=== PATIENT | female | born 1940 | race Caucasian/White ===

== ENCOUNTER 2017-12-14 09:55 | Observation (INO) | payer OTHER ==
[2017-12-12 11:23] LABS: BASOPHILS # (AUTO) 0.1 (0.0-0.1); BASOPHILS % 0.6 % (0.0-1.0); EOSINOPHILS # (AUTO) 0.4 (0.0-0.4); EOSINOPHILS % 4.5 % (0.0-6.0); HEMATOCRIT 39.6 % (34.2-44.1); HEMOGLOBIN 13.1 g/dL (12.0-16.0); LYMPHOCYTES # (AUTO) 2.3 (1.0-3.2); LYMPHOCYTES % 24.4 % (18.0-39.1); MEAN CORPUSCULAR HEMOGLOBIN 32.8 pg (28-32); MEAN CORPUSCULAR HGB CONC 33.1 g/dL (31-35); MONOCYTES % 10.6 % (4.4-11.3); NEUTROPHILS # (AUTO) 5.6 (2.1-6.9); NEUTROPHILS % 59.7 % (38.7-80.0); PLATELET COUNT 228 x10e3/uL (140-360); RED CELL DISTRIBUTION WIDTH 11.8 % (11.7-14.4)
[2017-12-12 11:40] LABS: ANION GAP 13.3 mmol/L (8-16); BLOOD UREA NITROGEN 13 mg/dL (7-26); BUN/CREATININE RATIO 17 (6-25); CALCIUM 9.9 mg/dL (8.4-10.2); CARBON DIOXIDE 32 mmol/L (22-29); CHLORIDE 99 mmol/L (98-107); CREATININE, SERUM 0.76 mg/dL (0.57-1.11); EST GLOMERULAR FILTRATION RATE > 60 ML/MIN (60-); GLUCOSE 81 mg/dL (74-118); POTASSIUM 4.3 mmol/L (3.5-5.1); SODIUM 140 mmol/L (136-145)
--- NOTE | 2017-12-12 12:11 | Diagnostic Imaging Report ---
EXAMINATION: PA and lateral views of the chest. COMPARISON: Portable chest 08/29/2015 CLINICAL HISTORY: Hiatal hernia, GERD, hernia repair DISCUSSION: Lines/tubes: None. Lungs: Lungs are well-inflated. Stable coarsening of the pulmonary interstitium, likely reflecting chronic interstitial changes. No consolidation or effusion. Pleura: There is no pleural effusion or pneumothorax. Heart and mediastinum: Cardiac silhouette is unremarkable. Mild central venous congestion. A large hiatal hernia is again identified. Bones and soft tissues: No acute bony abnormalities. Degenerative changes in the thoracic spine IMPRESSION: 1. Stable coarsening of the interstitium, likely reflecting chronic interstitial changes. No consolidation or effusion. 2. Mild central venous congestion. 3. Large hiatal hernia. Signed by: Dr. Woody Ross M.D. on 12/12/2017 12:07 PM
[~2017-12-14] VITALS: Ht 167.6 cm; Wt 81.2 kg
[~2017-12-14 09:55] MED LIST: ACETAMINOPHEN650 M1 PO; ALLEGRA ALLERGY60 MG PO; ALPRAZOLAM1 MG PO; BENZONATATE100 MG PO; COMBIVENT RESPIM4 GM IH; FLUOXETINE HCL20 MG PO; FLUTICASONE; FUROSEMIDE20 MG PO; LANSOPRAZOLE30 MG PO; LEVOTHYROXINE50 MCG PO; PAROXETINE HCL20 MG PO; POTASSIUM CHLO10 ME1 PO
[2017-12-14] MEDS ORDERED: CEFAZOLIN SOD 2 GM/D5W 50ML 50 ML IV ONE (10:50)
[2017-12-14] MEDS ORDERED: ALPRAZOLAM 0.5 MG TAB ONE (11:26)
[2017-12-14] MEDS ORDERED: BUPIVACAINE HCL 0.5% INJ 30 ML VIAL INJ ONE (13:20)
[2017-12-14] MEDS ORDERED: SEVOFLURANE INHAL SOLN 250 ML PEN BTL INH ONE (13:41)
[2017-12-14] MEDS ORDERED: PROPOFOL IV EMULSION 10 MG/ML 20 ML VIAL IV ONE (13:41)
[2017-12-14] MEDS ORDERED: GLYCOPYRROLATE INJ 1MG/ 5 ML SYR IV ONE (13:41)
[2017-12-14] MEDS ORDERED: EPHEDRINE SULFATE INJ 50 MG/10 ML SYR IV ONE (13:41)
[2017-12-14] MEDS ORDERED: LIDOCAINE HCL 2% LOCAL INJ 5 ML SDV VIAL INJ ONE (13:41)
[2017-12-14] MEDS ORDERED: ROCURONIUM BROMIDE 10 MG/ML 5ML VIAL IV ONE (13:41)
[2017-12-14] MEDS ORDERED: ONDANSETRON HCL INJ 2 MG/ML VIAL IV ONE (13:41)
[2017-12-14] MEDS ORDERED: DEXAMETHASONE SOD PHOS INJ 4 MG/ML VIAL IV ONE (13:41)
[2017-12-14] MEDS ORDERED: FENTANYL CITRATE/PF 100MCG/2 ML INJ ONE (15:02)
[2017-12-14] MEDS ORDERED: SODIUM CHLORIDE 0.9% 100 ML 100 ML ONE (15:40)
[2017-12-14] MEDS ORDERED: IPRATROPIUM/ALBUTEROL SULFATE 4 GM INH INH PRN (17:45)
[2017-12-14] MEDS ORDERED: ONDANSETRON HCL INJ 2 MG/ML VIAL IV PRN (17:45)
[2017-12-14] MEDS ORDERED: MORPHINE SULFATE INJ 4 MG/ML INJ IV PRN (17:45)
[2017-12-14] MEDS ORDERED: HYDROCODONE/APAP 5MG-325MG TAB PO PRN (17:45)
[2017-12-14] MEDS ORDERED: ALPRAZOLAM 1 MG TAB PO PRN (17:45)
[2017-12-14] MEDS ORDERED: FLUTICASONE 50 MCG SCH (17:45)
[2017-12-14] MEDS ORDERED: LABETALOL HCL 20 ML ONE (17:47)
[2017-12-14] MEDS ORDERED: CEFAZOLIN SOD 1 GM/D5W 50ML 50 ML IV SCH (18:00)
[2017-12-14] MEDS ORDERED: FLUTICASONE PROPIONATE NASAL SPRAY NS PRN (18:00)
--- NOTE | 2017-12-14 18:25 | Operative Report ---
DATE OF PROCEDURE: December 14, 2017 PREOPERATIVE DIAGNOSES 1. Gastroesophageal reflux disease. 2. Hiatal hernia. POSTOPERATIVE DIAGNOSES 1. Gastroesophageal reflux disease. 2. Hiatal hernia. PROCEDURES 1. Diagnostic laparoscopy. 2. Laparoscopic repair of hiatal hernia with fundoplication. SANDSTONE SPLITTER: None. ANESTHESIA: General. INDICATIONS AND FINDINGS: Patient is a 77-year-old female who presented with complaints of dysphagia and symptoms of reflux. Workup revealed a large hiatal hernia with most of the stomach and some small bowel in her chest. At surgery, the patient had a large hiatal hernia, which was combined sliding and paraesophageal type with herniated stomach and omentum in the chest. There were adhesions involving the omentum to the abdominal wall. TECHNIQUE: After adequate general endotracheal anesthesia with the patient in the supine position, the abdomen was prepped and draped in a sterile fashion with Boy solution. Approximately, 3 cm above the umbilicus to the left of the midline the skin and subcutaneous tissue was infiltrated with 0.5% Marcaine. Transverse incision made. Abdominal wall was elevated and Veress needle was introduced. Pneumoperitoneum was then created. A 10-mm trocar and cannula was then passed through this wound. Laparoscopic camera was introduced. Initial laparoscopy revealed adhesions involving the omentum in the upper abdomen. A 10-mm trocar and cannula was placed below the costal margin anterior to the axillary line. Adhesions were lysed using the LigaSure device exposing the midline and falciform ligament. A 10-mm trocar and cannula was placed to the right of the falciform ligament and through the falciform ligament. The left lobe of the liver was elevated. There were some adhesions to the left lobe of the liver, which were also lysed using LigaSure device. A 5-mm trocar and cannula was placed to the left of the midline subxiphoid. A 10-mm trocar and cannula was placed on the left side of the abdomen lateral to the umbilicus. These were placed under direct vision. With the left lobe of the liver elevated, the fundus of the stomach was grasped and delivered from the large hiatal hernia into the abdomen. Most of the stomach was in the chest. It was a combined sliding and paraesophageal type hiatal hernia. Omentum also was in the chest. Once the hernia had been reduced, the lesser omentum was divided with the LigaSure device exposing the right side of the esophageal hiatus. Perineal attachments were divided with the LigaSure device as were anteriorly and posteriorly. Fundus of the stomach was then mobilized by dividing short gastric vessels and also attachments to the left side of the esophageal hiatus. The esophageal hiatus was completely dissected free and completely delineated. The gastroesophageal junction also was delineated. Short gastric vessel was divided with the LigaSure device. Once the dissection was complete, the esophagus was encircled with a [place] drain. Care was taken not to injure the vagus nerves. With the esophagus encircled by a [place] drain, this was retracted to the left. The esophageal hiatus was then closed posterior to the esophagus with interrupted sutures of 0 Ethibond. A single suture also was placed on the left side of the hiatus closing the left side of the hiatus, which was also was dilated and also done with 0 Ethibond. Once the esophageal hiatus was closed, the fundus of the stomach was passed posterior to the esophagus. A 56-Polish esophageal dilator was then passed. A 360-degree fundoplication was done from the stomach that was brought from the left side of the esophagus anteriorly, and sutures taken from the stomach to the wall of the esophagus to the stomach to complete a 360-degree fundoplication. This was done with interrupted sutures of 0 Ethibond over a distance of approximately 3 cm. Once the fundoplication was completed, the esophageal dilator was removed. The wound was inspected for hemostasis, which was seen to be adequate. The wound was irrigated with saline and inspected for hemostasis, which was seen to be adequate. Instruments and cannulas were removed. Pneumoperitoneum was evacuated. Wounds were then closed. Fascia and larger trocar wounds were closed with 0 Vicryl. Skin to all wounds closed with aminta. Sterile dressing was applied. The patient tolerated the procedure well. Estimated blood loss was 75 mL. There were no complications. All counts were correct. The patient was taken to the recovery room satisfactory condition. Job#: [id number] RI cc:FAISAL RENE MD
[2017-12-14 19:15] VITALS: BP 173/72
[2017-12-14 20:00] VITALS: BP 173/72
[2017-12-14] MEDS: BENZONATATE 100 MG CAP PO SCH (20:35)
[2017-12-14] MEDS: CEFAZOLIN SOD 1 GM VIAL IV SCH (20:35)
[2017-12-14] MEDS: DEXTROSE 5%/LACTATED RINGERS 1,000 ML IV SCH (21:43)
[2017-12-15] MEDS: CEFAZOLIN SOD 1 GM VIAL IV SCH ×2 (04:26→08:26)
[2017-12-15 05:00] VITALS: BP 133/63
[2017-12-15 05:49] LABS: BASOPHILS % 0.2 % (0.0-1.0); HEMOGLOBIN 10.7 g/dL (12.0-16.0); LYMPHOCYTES # (AUTO) 0.7 (1.0-3.2); LYMPHOCYTES % 4.5 % (18.0-39.1); MEAN CORPUSCULAR HEMOGLOBIN 32.6 pg (28-32); MEAN CORPUSCULAR HGB CONC 32.4 g/dL (31-35); MEAN CORPUSCULAR VOLUME 100.6 fL (81-99); MONOCYTES # (AUTO) 0.9 (0.2-0.8); NEUTROPHILS # (AUTO) 13.7 (2.1-6.9); NEUTROPHILS % 88.8 % (38.7-80.0); PLATELET COUNT 194 x10e3/uL (140-360); RED BLOOD COUNT 3.28 x10e6/uL (3.6-5.1); RED CELL DISTRIBUTION WIDTH 11.9 % (11.7-14.4)
[2017-12-15] MEDS ORDERED: LEVOTHYROXINE SODIUM 50 MCG TAB PO SCH (06:00)
[2017-12-15] MEDS: DEXTROSE 5%/LACTATED RINGERS 1,000 ML IV SCH (06:07)
[2017-12-15 07:54] VITALS: BP 138/63
[2017-12-15] MEDS: BENZONATATE 100 MG CAP PO SCH (08:27)
[2017-12-15] MEDS ORDERED: PAROXETINE HCL 20 MG TAB PO SCH (09:00)
[2017-12-15] MEDS ORDERED: FLUOXETINE HCL 20 MG CAP PO SCH (09:00)
[2017-12-15 09:25] VITALS: BP 138/63
[2017-12-15 12:35] VITALS: BP 144/63
[2017-12-15 15:58] VITALS: BP 169/74
[2017-12-15] MEDS ORDERED: NORCO 5-325 TA1 EACH PO (16:09)
== END 2017-12-15 16:24 | disposition home or self-care (01) ==
LOC: OR 09:55 → IMCU 18:16
PROVIDERS: ADMIT Surgery; ATTEND Surgery
DX: K21.9 Gastro-esophageal reflux disease without esophagitis (principal); K44.9 Diaphragmatic hernia without obstruction or gangrene; M06.9 Rheumatoid arthritis, unspecified; H81.09 Meniere's disease, unspecified ear; F41.9 Anxiety disorder, unspecified; Z82.49 Family history of ischemic heart disease and other diseases of the circulatory system; E03.9 Hypothyroidism, unspecified; Z88.5 Allergy status to narcotic agent; Z88.0 Allergy status to penicillin; Z88.8 Allergy status to other drugs, medicaments and biological substances; Z88.1 Allergy status to other antibiotic agents; Z91.041 Radiographic dye allergy status
CPT/HCPCS: 36415 ×2; 43281; 71046; 80048; 85025 ×2; 93005; G0378 ×2; J0690 ×2; J1100; J2001; J2405; J3490 ×2; J7120 ×2

== ENCOUNTER 2019-02-02 09:30 | Emergency (ER) | payer OTHER ==
[~2019-02-02] VITALS: Ht 167.6 cm; Wt 81.2 kg
[~2019-02-02 09:30] MED LIST changes: +NORCO 5-325 TA1 EACH PO
[2019-02-02] MEDS ORDERED: SODIUM CHLORIDE 0.9% 1000ML 1,000 ML IV STA (09:56)
[2019-02-02] MEDS ORDERED: PANTOPRAZOLE 40 MG 10ML VIAL IV NR (10:00)
[2019-02-02] MEDS ORDERED: ONDANSETRON HCL INJ 2MG/ML 2ML 2 MG/ML VIAL IV NR (10:00)
[2019-02-02 10:28] LABS: BASOPHILS % 0.4 % (0.0-1.0); EOSINOPHILS # (AUTO) 0.1 (0.0-0.4); EOSINOPHILS % 0.6 % (0.0-6.0); HEMATOCRIT 37.6 % (34.2-44.1); HEMOGLOBIN 12.7 g/dL (12.0-16.0); LYMPHOCYTES # (AUTO) 1.1 (1.0-3.2); LYMPHOCYTES % 10.5 % (18.0-39.1); MEAN CORPUSCULAR HGB CONC 33.8 g/dL (31-35); MEAN CORPUSCULAR VOLUME 97.7 fL (81-99); MONOCYTES # (AUTO) 0.6 (0.2-0.8); MONOCYTES % 5.6 % (4.4-11.3); NEUTROPHILS % 82.6 % (38.7-80.0); PLATELET COUNT 234 x10e3/uL (140-360); RED BLOOD COUNT 3.85 x10e6/uL (3.6-5.1)
[2019-02-02 10:29] LABS: BILIRUBIN,URINE NEGATIVE (NEGATIVE); CLARITY,URINE CLEAR (CLEAR); COLOR,URINE YELLOW (YELLOW); KETONES,URINE NEGATIVE (NEGATIVE); LEUKOCYTE ESTERASE ,URINE TRACE (NEGATIVE); NITRITE,URINE NEGATIVE (NEGATIVE); PROTEIN,URINE DIPSTICK NEGATIVE (NEGATIVE); URINE UROBILINOGEN 0.2 mg/dL (0.2 - 1)
[2019-02-02 10:40] LABS: EPITHELIAL CELLS,URINE FEW /LPF; RBC,URINE 0-5 /HPF (0-5); WBC,URINE (MAN) 0-5 /HPF (0-5)
[2019-02-02 10:47] LABS: ALANINE AMINOTRANSFERASE 19 IU/L (0-55); ALBUMIN 4.2 g/dL (3.5-5.0); ALBUMIN/GLOBULIN RATIO 1.3 (0.8-2.0); ALKALINE PHOSPHATASE 72 IU/L (40-150); ANION GAP 12.4 mmol/L (8-16); BLOOD UREA NITROGEN 12 mg/dL (7-26); BUN/CREATININE RATIO 16 (6-25); CALCIUM 9.5 mg/dL (8.4-10.2); CARBON DIOXIDE 30 mmol/L (22-29); CHLORIDE 98 mmol/L (98-107); CREATINE KINASE 76 IU/L (29-168); CREATININE, SERUM 0.73 mg/dL (0.57-1.11); EST GLOMERULAR FILTRATION RATE > 60 ML/MIN (60-); GLUCOSE 97 mg/dL (74-118); MAGNESIUM 1.8 MG/DL (1.3-2.1); POTASSIUM 3.4 mmol/L (3.5-5.1); SODIUM 137 mmol/L (136-145)
--- NOTE | 2019-02-02 10:59 | Diagnostic Imaging Report ---
EXAMINATION: Chest COMPARISON: 12/12/2017. CLINICAL HISTORY: Emphysema. DISCUSSION: Lines/tubes: None. Lungs: Patchy density in the lung bases again observed may reflect atelectasis. Biapical pleural scarring. Pleura: There is no pleural effusion or pneumothorax. Heart and mediastinum: Mild enlargement of the cardiac silhouette. Cusp indication of the aortic arch. Previous described hiatal hernia is not well visualized on today's exam. Bones and soft tissues: No acute bony abnormalities. Degenerative changes in the thoracic spine IMPRESSION: 1. Bibasilar atelectasis. Signed by: Dr. Viviana Monroy M.D. on 02/02/2019 10:56 AM
== END 2019-02-02 13:12 | disposition home or self-care (01) ==
LOC: ER 09:30
DX: R11.2 Nausea with vomiting, unspecified (principal); J44.9 Chronic obstructive pulmonary disease, unspecified; F32.9 Major depressive disorder, single episode, unspecified; F41.9 Anxiety disorder, unspecified; K44.9 Diaphragmatic hernia without obstruction or gangrene; Z88.5 Allergy status to narcotic agent; Z88.0 Allergy status to penicillin; Z88.8 Allergy status to other drugs, medicaments and biological substances; Z91.041 Radiographic dye allergy status; H81.09 Meniere's disease, unspecified ear; Z79.1 Long term (current) use of non-steroidal anti-inflammatories (NSAID)
CPT/HCPCS: 36415; 71045; 80053; 81001; 82550; 82553; 83735; 84484; 85025; 87086; 93005; 99284; C9113; J2405; J7030

== ENCOUNTER 2019-11-08 10:30 | Emergency (ER) | payer OTHER ==
[~2019-11-08] VITALS: Ht 167.6 cm; Wt 81.2 kg
[2019-11-08 10:58] LABS: BASOPHILS # (AUTO) 0.1 (0.0-0.1); BASOPHILS % 0.7 % (0.0-1.0); EOSINOPHILS # (AUTO) 0.2 (0.0-0.4); EOSINOPHILS % 2.5 % (0.0-6.0); HEMATOCRIT 37.8 % (34.2-44.1); HEMOGLOBIN 12.3 g/dL (12.0-16.0); LYMPHOCYTES # (AUTO) 1.4 (1.0-3.2); LYMPHOCYTES % 16.3 % (18.0-39.1); MEAN CORPUSCULAR HEMOGLOBIN 32.1 pg (28-32); MEAN CORPUSCULAR HGB CONC 32.5 g/dL (31-35); MEAN CORPUSCULAR VOLUME 98.7 fL (81-99); MONOCYTES # (AUTO) 0.7 (0.2-0.8); MONOCYTES % 8.1 % (4.4-11.3); NEUTROPHILS % 72.2 % (38.7-80.0); PLATELET COUNT 219 x10e3/uL (140-360); RED BLOOD COUNT 3.83 x10e6/uL (3.6-5.1); RED CELL DISTRIBUTION WIDTH 12.4 % (11.7-14.4)
[2019-11-08] MEDS ORDERED: HYDRALAZINE HCL 20 MG/ML VIAL IV STA (11:06)
[2019-11-08] MEDS ORDERED: HYDRALAZINE HCL 20 MG/ML VIAL ONE (11:18)
[2019-11-08 11:24] LABS: ALANINE AMINOTRANSFERASE 20 IU/L (0-55); ALBUMIN 4.3 g/dL (3.5-5.0); ALBUMIN/GLOBULIN RATIO 1.3 (0.8-2.0); ALKALINE PHOSPHATASE 71 IU/L (40-150); ANION GAP 14.3 mmol/L (8-16); BLOOD UREA NITROGEN 7 mg/dL (7-26); BUN/CREATININE RATIO 9 (6-25); CALCIUM 9.4 mg/dL (8.4-10.2); CARBON DIOXIDE 28 mmol/L (22-29); CHLORIDE 108 mmol/L (98-107); CREATINE KINASE 77 IU/L (29-168); CREATININE, SERUM 0.75 mg/dL (0.57-1.11); EST GLOMERULAR FILTRATION RATE > 60 ML/MIN (60-); GLUCOSE 91 mg/dL (74-118); POTASSIUM 3.3 mmol/L (3.5-5.1); SODIUM 147 mmol/L (136-145)
--- NOTE | 2019-11-08 11:44 | Diagnostic Imaging Report ---
EXAMINATION: CHEST SINGLE (PORTABLE) INDICATION: Hypertension, headache COMPARISON: None FINDINGS: LINES/TUBES:None LUNGS:The lungs are moderately inflated. There is perihilar fullness and indistinctness of the pulmonary vasculature. PLEURA:No pleural effusion or pneumothorax. MEDIASTINUM:Cardiomediastinal silhouette is stably enlarged. Atherosclerotic calcifications of the thoracic aorta. BONES/SOFT TISSUES:No acute osseous injury. ABDOMEN:No free air under the diaphragm. IMPRESSION: Cardiomegaly and pulmonary interstitial edema. Signed by: Adina Esquivel MD on 11/08/2019 11:41 AM
[2019-11-08] MEDS ORDERED: ACETAMINOPHEN 325 MG TAB PO ONE (11:45)
[2019-11-08] MEDS ORDERED: DEXTROSE 5% 1,000 ML IV STA (11:50)
[2019-11-08 12:31] LABS: CHOL/HDL RATIO 2.8 (3.0-3.6)
--- NOTE | 2019-11-08 13:10 | Emergency Department Note ---
History of Present Illnes History of Present Illness Chief Complaint: Headache History of Present Illness This is a 79 year old female arrived to the ED with concerns that her blood pressure is high. Patient states when she sees an elevated blood pressure. There is a headache. Patient denies any numbness or weakness difficulty speaking or slurred speech. 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 Any updates have been documented here. Past Medical History Recent Fever: No Clinical Suspicion of Infectio: No New/Unexplained Change in Ment: No Past Medical History: Hypertension, COPD, Anxiety, Hyperlipedemia Other Medical History: MENIERES DISEASE DEPRESSION ANXIETY HIATAL HERNIA rheumatoid arthritis emphysema Past Surgical History: Cholecysctectomy, Hysterectomy Other Surgery: SMALL INTESTINE SURGERY CATARACT SURGERY Social History Smoking Cessation: Former smoker Counseling Performed: No Alcohol Use: None Any Illegal Drug Use: No Physically hurt or threatened: No Other Last Tetanus: NA Any Pre-Existing Lines (PICC,: No Review of Systems Review of Systems Constitutional: Reports as per HPI EENTM: Reports no symptoms Cardiovascular: Reports no symptoms Respiratory: Reports no symptoms Gastrointestinal: Reports no symptoms Genitourinary: Reports no symptoms Musculoskeletal: Reports no symptoms Integumentary: Reports no symptoms Neurological: Reports as per HPI, Reports headache Psychological: Reports no symptoms Endocrine: Reports no symptoms Hematological/Lymphatic: Reports no symptoms Physical Exam Related Data Allergies: Coded Allergies: codeine (Verified Allergy, Intermediate, VOMTING, SWEATS, 12/12/17) naproxen (Verified Allergy, Intermediate, HIGH BLOOD PRESSURE, 12/12/17) trazodone (Verified Allergy, Intermediate, HIGH BLOOD PRESSURE, 12/14/17) penicillin (Verified Allergy, Mild, RASH, 12/12/17) pentazocine (Verified Allergy, Mild, RASH, 12/12/17) Iodinated Contrast Media (Verified Allergy, Unknown, 12/14/17) butorphanol (Verified Allergy, Unknown, 12/12/17) caffeine (Verified Allergy, Unknown, 08/31/15) cimetidine (Verified Allergy, Unknown, 12/12/17) ergotamine (Verified Allergy, Unknown, 08/31/15) meperidine (Verified Allergy, Unknown, 12/12/17) promethazine (Verified Allergy, Unknown, 12/12/17) sertraline (Verified Allergy, Unknown, 02/02/19) Triage Vital Signs Vital Signs Date Time Temp Pulse Resp B/P (MAP) Pulse Ox O2 Delivery O2 Flow Rate FiO2 11/08/19 10:36 98.2 71 18 176/97 99 Room Air Vital signs reviewed: Yes Physical Exam CONSTITUTIONAL Constitutional: Present well-developed, Present well-nourished HENT HENT: Present normocephalic, Present atraumatic, Present oropharynx clear/moist, Present nose normal HENT L/R: Present left ext ear normal, Present right ext ear normal EYES Eyes: Reports PERRL, Reports conjunctivae normal NECK Neck: Present ROM normal PULMONARY Pulmonary: Present effort normal, Present breath sounds normal CARDIOVASCULAR Cardiovascular: Present regular rhythm, Present heart sounds normal, Present capillary refill normal, Present normal rate GASTROINTESTINAL Abdominal: Present soft, Present nontender, Present bowel sounds normal GENITOURINARY Genitourinary: Present exam deferred SKIN Skin: Present warm, Present dry MUSCULOSKELETAL Musculoskeletal: Present ROM normal NEUROLOGICAL Neurological: Present alert, Present oriented x 3, Present no gross motor or sensory deficits PSYCHOLOGICAL Psychological: Present mood/affect normal, Present judgement normal Results Laboratory Result Diagram: 11/08/19 1044 11/08/19 1044 Laboratory Laboratory Tests Test 11/08/19 10:44 White Blood Count 8.32 x10e3/uL (4.8-10.8) Red Blood Count 3.83 x10e6/uL (3.6-5.1) Hemoglobin 12.3 g/dL (12.0-16.0) Hematocrit 37.8 % (34.2-44.1) Mean Corpuscular Volume 98.7 fL (81-99) Mean Corpuscular Hemoglobin 32.1 pg (28-32) Mean Corpuscular Hemoglobin Concent 32.5 g/dL (31-35) Red Cell Distribution Width 12.4 % (11.7-14.4) Platelet Count 219 x10e3/uL (140-360) Neutrophils (%) (Auto) 72.2 % (38.7-80.0) Lymphocytes (%) (Auto) 16.3 % (18.0-39.1) Monocytes (%) (Auto) 8.1 % (4.4-11.3) Eosinophils (%) (Auto) 2.5 % (0.0-6.0) Basophils (%) (Auto) 0.7 % (0.0-1.0) Neutrophils # (Auto) 6.0 (2.1-6.9) Lymphocytes # (Auto) 1.4 (1.0-3.2) Monocytes # (Auto) 0.7 (0.2-0.8) Eosinophils # (Auto) 0.2 (0.0-0.4) Basophils # (Auto) 0.1 (0.0-0.1) Absolute Immature Granulocyte (auto 0.02 x10e3/uL (0-0.1) Sodium Level 147 mmol/L (136-145) Potassium Level 3.3 mmol/L (3.5-5.1) Chloride Level 108 mmol/L (98-107) Carbon Dioxide Level 28 mmol/L (22-29) Anion Gap 14.3 mmol/L (8-16) Blood Urea Nitrogen 7 mg/dL (7-26) Creatinine 0.75 mg/dL (0.57-1.11) Estimat Glomerular Filtration Rate > 60 ML/MIN (60-) BUN/Creatinine Ratio 9 (6-25) Glucose Level 91 mg/dL (74-118) Calcium Level 9.4 mg/dL (8.4-10.2) Total Bilirubin 0.4 mg/dL (0.2-1.2) Aspartate Amino Transf (AST/SGOT) 24 IU/L (5-34) Alanine Aminotransferase (ALT/SGPT) 20 IU/L (0-55) Alkaline Phosphatase 71 IU/L (40-150) Creatine Kinase 77 IU/L (29-168) Creatine Kinase MB 1.20 ng/mL (0-5.0) Troponin I < 0.001 ng/mL (0-0.300) Total Protein 7.6 g/dL (6.5-8.1) Albumin 4.3 g/dL (3.5-5.0) Globulin 3.3 g/dL (2.3-3.5) Albumin/Globulin Ratio 1.3 (0.8-2.0) Triglycerides Level 82 MG/DL (0-149) Cholesterol Level 94 MD/DL (0-199) LDL Cholesterol 45 MG/DL (60-130) HDL Cholesterol 33 MG/DL (40-60) Cholesterol/HDL Ratio 2.8 (3.0-3.6) Lab results reviewed: Yes Imaging Imaging results reviewed: Yes Impressions IMPRESSION: Cardiomegaly and pulmonary interstitial edema. Assessment & Plan Medical Decision Making MDM 79-year-old female arrives to the ED with complaints of a headache and trouble controlling her blood pressure. Patient's lab work and CT scan are normal. Lipid profile was sent at patient's request. Patient blood pressure was controlled in the ED and recommend outpatient management for tighter blood pressure control. Assessment & Plan Final Impression: (1) Head ache Depart Disposition: HOME, SELF-CARE Last Vital Signs Date Time Temp Pulse Resp B/P (MAP) Pulse Ox O2 Delivery O2 Flow Rate FiO2 11/08/19 12:19 77 19 157/61 97 Room Air 11/08/19 10:36 98.2 Home Meds Reported Medications Hydrocodone Bit/Acetaminophen (NORCO 5-325 TABLET) 1 Each Tablet, 1 EACH PO Q4HR PRN for PAIN, TAB 12/15/17 [Fluticasone] No Conflict Check, 50 MCG NA PRN 12/12/17 Ipratropium/Albuterol Sulfate (COMBIVENT RESPIMAT INHAL SPRAY) 4 Gm Aer.w.adap, 4 GM IH PRN, INH 12/12/17 Paroxetine Hcl (PAROXETINE HCL) 20 Mg Tablet, 40 MG PO DAILY, #30 TAB 12/12/17 Benzonatate (BENZONATATE) 100 Mg Capsule, 100 MG PO TID, CAP 12/12/17 Levothyroxine Sodium (LEVOTHYROXINE SODIUM) 50 Mcg Tablet, 50 MCG PO DAILY, #30 TAB 08/20/15 Acetaminophen (ACETAMINOPHEN) 650 Mg Tablet, 500 MG PO 08/20/15 Alprazolam (ALPRAZOLAM) 1 Mg Tablet, 1 MG PO TID PRN for ANXIETY, #30 TAB 08/20/15 Fluoxetine Hcl (FLUOXETINE HCL) 20 Mg Capsule, 20 MG PO BID, #30 CAP 08/20/15 Medications in the ED Hydralazine HCl 10 mg NOW STAT IV Last administered on 11/08/19at 11:16; Admin Dose 10 MG; Start 11/08/19 at 11:06; Stop 11/08/19 at 11:11; Status DC Hydralazine HCl 20 mg STK-MED ONCE .ROUTE ; Start 11/08/19 at 11:18; Stop 11/08/19 at 11:12; Status DC Acetaminophen 650 mg ONCE ONCE PO Last administered on 11/08/19at 12:18; Admin Dose 650 MG; Start 11/08/19 at 11:45; Stop 11/08/19 at 11:46; Status DC Dextrose 1,000 ml @ 0 mls/hr Q0M STAT IV Last administered on 11/08/19at 12:18; Admin Dose 999 MLS/HR; Start 11/08/19 at 11:50; Stop 11/08/19 at 11:51; Status DC INESSA MITTAL DO Nov 08, 2019 13:09
[2019-11-08 13:56] LABS: ANION GAP 11.2 mmol/L (8-16); BLOOD UREA NITROGEN 6 mg/dL (7-26); BUN/CREATININE RATIO 8 (6-25); CALCIUM 8.9 mg/dL (8.4-10.2); CARBON DIOXIDE 27 mmol/L (22-29); CHLORIDE 107 mmol/L (98-107); CREATININE, SERUM 0.75 mg/dL (0.57-1.11); EST GLOMERULAR FILTRATION RATE > 60 ML/MIN (60-); GLUCOSE 240 mg/dL (74-118); POTASSIUM 3.2 mmol/L (3.5-5.1); SODIUM 142 mmol/L (136-145)
--- OUTSIDE RECORDS SUMMARY | 2019-11-08 14:00 | XMS REPORT | Continuity of Care Document ---
Author Author [facility] t Organization [facility] Address 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 Allergies, Adverse Reactions, Alerts Allergy Name Allergy Type Status Severity Reaction(s) Onset Date Inacti ve Date Treating Clinician Comments Source nifedipine DA Active U 2019-09-28 00:00:00 [facility] escitalopram DA Active U 2019-09-28 00:00:00 [facility] ergotamine tartrate DA Active U 2019-07-25 00:00:00 [facility] meperidine HCl DA Active U 2019-07-25 00:00:00 [facility] butorphanol tartrate DA Active U 2019-07-25 00:00:00 [facility] Pentazocine Lactate DA Active U 2019-07-25 00:00:00 [facility] caffeine FA Active U 2019-07-25 00:00:00 [facility] codeine DA Active U 2019-07-25 00:00:00 [facility] naproxen DA Active U 2019-07-25 00:00:00 [facility] cimetidine DA Active U 2019-07-25 00:00:00 [facility] trazodone DA Active U 2019-07-25 00:00:00 [facility] sertraline DA Active U 2019-07-25 00:00:00 [facility] penicillin G DA Active U 2019-07-25 00:00:00 [facility] ergotamine tartrate DA Active U 2019-07-24 00:00:00 [facility] meperidine HCl DA Active U 2019-07-24 00:00:00 [facility] butorphanol tartrate DA Active U 2019-07-24 00:00:00 [facility] Pentazocine Lactate DA Active U 2019-07-24 00:00:00 [facility] caffeine FA Active U 2019-07-24 00:00:00 [facility] iodine DA Active U 2019-07-24 00:00:00 [facility] codeine DA Active U 2019-07-24 00:00:00 [facility] naproxen DA Active U 2019-07-24 00:00:00 [facility] cimetidine DA Active U 2019-07-24 00:00:00 [facility] trazodone DA Active U 2019-07-24 00:00:00 [facility] sertraline DA Active U 2019-07-24 00:00:00 [facility] penicillin G DA Active U 2019-07-24 00:00:00 [facility] Sertraline Allergy to Substance Active 2019-02-02 00:00:00 [facility] Trazodone Allergy to Substance Active Moderate HIGH BLOOD PRES SURE 2017-12-14 00:00:00 [facility] Iodinated Contrast Media Allergy to Substance Active 20 19-12-12 00:00:00 [facility] Codeine Allergy to Substance Active Moderate VOMTING, SWEATS 2017-12-12 00:00:00 [facility] Pentazocine Allergy to Substance Active Mild RASH 2017-12-12 00:00:00 [facility] Naproxen Allergy to Substance Active Moderate HIGH BLOOD PRES SURE 2017-12-12 00:00:00 [facility] Cimetidine Allergy to Substance Active 2017-12-12 00:00:00 [facility] Promethazine Allergy to Substance Active 2017-12-12 00:00:0 0 [facility] Meperidine Allergy to Substance Active 2017-12-12 00:00:00 [facility] Butorphanol Allergy to Substance Active 2017-12-12 00:00:00 [facility] penicillin Allergy to Substance Active Mild RASH 2017-12-12 00:00:00 [facility] Caffeine Allergy to Substance Active 2015-08-31 00:00:00 [facility] Ergotamine Allergy to Substance Active 2015-08-31 00:00:00 [facility] ergotamine tartrate DA Active U 2010-02-03 00:00:00 [facility] meperidine HCl DA Active U 2010-02-03 00:00:00 [facility] butorphanol tartrate DA Active U 2010-02-03 00:00:00 [facility] Pentazocine Lactate DA Active U 2010-02-03 00:00:00 [facility] caffeine FA Active U 2010-02-03 00:00:00 [facility] iodine DA Active U 2010-02-03 00:00:00 [facility] codeine DA Active U 2010-02-03 00:00:00 [facility] penicillin G DA Active U 2010-02-03 00:00:00 [facility] TUNA DA Active U 2010-02-03 00:00:00 [facility] Medications Ordered Medication Name Filled Medication Name Start Date Stop Da te Current Medication? Ordering Clinician Indication Dosage Frequency Signature (SIG) Comments Components Source Acetaminophen 650 Mg Tablet Acetaminophen 650 Mg Tablet Yes 500 [facility] Alprazolam 1 Mg Tablet Alprazolam 1 Mg Tablet Yes 1 Three Times A Day as needed for Anxiety [facility] Benzonatate 100 Mg Capsule Benzonatate 100 Mg Capsule Yes 100 Three Times A Day [facility] Fluoxetine Hcl 20 Mg Capsule Fluoxetine Hcl 20 Mg Capsule Y es 20 Twice A Day [facility] Fluticasone Fluticasone Yes 50 As Needed [facility] Hydrocodone Bit/Acetaminophen ([place]ollywood 5-325 Tablet) 1 E ach Tablet Hydrocodone Bit/Acetaminophen ([place] 5-325 Tablet) 1 Each Tablet Yes 1 Every 4 Hours as needed for Pain [facility] Ipratropium/Albuterol Sulfate (Combivent Respimat Inha l Nicholls) 4 Gm Aer.w.adap Ipratropium/Albuterol Sulfate (Combivent Respimat Inhal Nicholls) 4 Gm Aer.w.adap Yes 4 As Needed [facility] Levothyroxine Sodium 50 Mcg Tablet Levothyroxine Sodium 50 Mcg Tablet Yes 50 Daily [facility] Paroxetine Hcl 20 Mg Tablet Paroxetine Hcl 20 Mg Tablet Yes 40 Daily [facility] Lansoprazole 30 Mg Capsule., 30 Mg Oral Lansoprazole 30 Mg Capsule., 30 Mg Oral 2017-12-15 00:00:00 No 30 Daily [facility] Fexofenadine Hcl (Raegan Allergy) 60 Mg Tablet, 20 Mg Oral Fexofenadine Hcl (Raegan Allergy) 60 Mg Tablet, 20 Mg Oral 2017-12-12 00:00:00 No 20 Twice A Day [facility] Fexofenadine Hcl (Raegan Allergy) 60 Mg Tablet, 60 Mg Oral Fexofenadine Hcl (Raegan Allergy) 60 Mg Tablet, 60 Mg Oral 2017-12-12 00:00:00 No 60 [facility] Furosemide 20 Mg Tablet, 20 Mg Oral Furosemide 20 Mg Tablet, 20 Mg Oral 2017-12-12 00:00:00 No 20 Daily [facility] Potassium Chloride 10 Meq Tab.er.prt, 10 Meq Oral Pota ssium Chloride 10 Meq Tab.er.prt, 10 Meq Oral 2017-12-12 00:00:00 No 10 Daily [facility] Procedures This patient has no known procedures. Encounters Start Date/Time End Date/Time [facility] ID Source 2019-02-02 09:30:00 2019-02-02 13:12:00 Departed Emergency Room 1 YAMILA SANDRA [facility] [id number] [facility] 2017-12-14 18:16:00 2017-12-15 16:24:00 Discharged Inpatient (obs) 3 DIANA LEES [facility] [id number] [facility] Results Test Description Test Time Test Comments Results Result Comments Source CHEST SINGLE (PORTABLE) 2019-11-08 11:39:00 [facility] [address] [address] Patient Name: ROXANNA PENNY MR #: [id number] : 1940 Age/Sex: 79/F Req #: [id number] Adm Physician: Ordered by: INESSA MITTAL DO Report #: [id number] Location: ER Room/Bed: Procedure: [id number] DX/CHEST SINGLE (PORTABLE) Exam Date: 11/08/19 Exam Time: 1122 REPORT STATUS: Signed EXAMINATION: CHEST SINGLE (PORTABLE) INDICATION: Hypertension, headache COMPARISON: None FINDINGS: LINES/TUBES:None LUNGS:The lungs are moderately inflated. There is perihilar fullness and indistinctness of the pulmonary va sculature. PLEURA:No pleural effusion or pneumothorax. MEDIASTINUM:Cardiomediastinal silhouette is stably enlarged. Atherosclerotic calcifications of the thoracic aorta. BONES/SOFT TISSUES:No acute osseous injury. ABDOMEN:No free air under the diaphragm. IMPRESSION: Cardiomegaly and pulmonary interstitial edema. Signed by: Emily Zarate MD on 11/08/2019 11:41 AM Dictated By: EMILY ZARATE MD 1141 Transcribed By: MARY KAY on 11/08/19 1141 COPY TO: INESSA MITTAL DO BASIC METABOLIC PANEL 2019-09-28 12:09:00 Test Item SODIUM (test code = NA) 142 mmol/L 136-145 N POTASSIUM (test code = K) 4.1 mmol/L 3.5-5.1 N CHLORIDE (test code = CL) 110.0 mmol/L 98-107 H CARBON DIOXIDE (test code = CO2) 29.0 mmol/L 21-32 N ANION GAP (test code = GAP) 7.1 10-20 L GLUCOSE (test code = GLU) 124 mg/dL 74-106 H BLOOD UREA NITROGEN (test code = BUN) 9 mg/dL 7-18 N GLOMERULAR FILTRATION RATE (test code = GFR) > 60 mL/min >=60 Estimated GFR by using Modified MDRD formula.Chronic kidney disease is defined as either kidney damageor GFR <60 mL/min/1.73 m2 for >3 months. CREATININE (test code = CREAT) 0.70 mg/dL 0.55-1.02 N Note change in reference range due to change in reagent. BUN/CREATININE RATIO (test code = BUN/CREA) 13.8 10-20 N CALCIUM (test code = CA) 8.8 mg/dL 8.5-10.1 N BASIC METABOLIC [id number] 12:04:00* Test Item Value Reference Range Interpretation Comments SODIUM (test code = NA) 142 mmol/L 136-145 N POTASSIUM (test code = K) 4.1 mmol/L 3.5-5.1 N CHLORIDE (test code = CL) 110.0 mmol/L 98-107 H CARBON DIOXIDE (test code = CO2) mmol/L 21-32 ANION GAP (test code = GAP) 10-20 GLUCOSE (test code = GLU) mg/dL 74-106 BLOOD UREA NITROGEN (test code = BUN) mg/dL 7-18 GLOMERULAR FILTRATION RATE (test code = GFR) mL/min >=60 CREATININE (test code = CREAT) mg/dL 0.55-1.02 BUN/CREATININE RATIO (test code = BUN/CREA) 10-20 CALCIUM (test code = CA) mg/dL 8.5-10.1 CBC W/O [id number] 11:46:00* Test Item Value Reference Range Interpretation Comments WHITE BLOOD CELL (test code = WBC) 7.2 K/mm3 4.5-12.5 N RED BLOOD CELL (test code = RBC) 3.54 mill/mm3 3.7-5.2 L HEMOGLOBIN (test code = HGB) 11.7 gram/dL 11.5-15.5 N HEMATOCRIT (test code = HCT) 36.3 % 36.0-46.0 N MEAN CELL VOLUME (test code = MCV) 102.5 fL 80-98 H MEAN CELL HGB (test code = MCH) 33.1 picogram 27.0-33.0 H MEAN CELL HGB CONCETRATION (test code = MCHC) 32.2 gram/dL 33.0-36. 0 L RED CELL DISTRIBUTION WIDTH (test code = RDW) 12.3 % 11.6-16. 2 N PLATELET COUNT (test code = PLT) 180 K/mm3 150-450 N MEAN PLATELET VOLUME (test code = MPV) 10.8 fL 6.7-11.0 N CBC W/O [id number] 11:45:00* Test Item Value Reference Range Interpretation Comments WHITE BLOOD CELL (test code = WBC) K/mm3 4.5-12.5 RED BLOOD CELL (test code = RBC) mill/mm3 3.7-5.2 HEMOGLOBIN (test code = HGB) 11.7 gram/dL 11.5-15.5 N HEMATOCRIT (test code = HCT) 36.3 % 36.0-46.0 N MEAN CELL VOLUME (test code = MCV) fL 80-98 MEAN CELL HGB (test code = MCH) picogram 27.0-33.0 MEAN CELL HGB CONCETRATION (test code = MCHC) gram/dL 33.0-36. 0 RED CELL DISTRIBUTION WIDTH (test code = RDW) % 11.6-16. 2 PLATELET COUNT (test code = PLT) K/mm3 150-450 MEAN PLATELET VOLUME (test code = MPV) fL 6.7-11.0 - XR UGI DBL [id number] 13:56:00 FAX: Anuel Rene MD [phone] [place]: St: REG Name: GEOFF MCNULTY [facility] : [birth year] Age/S: 79/F [address] [facility] Unit #: [id number] Loc: [place] [address] Phys: Diana Lees MD Acct: [id number] Dis Date: Status: REG CLI PHONE #: [phone] Exam Date: 09/18/2019 1050 FAX #: [phone] Reason: VOMITING EXAMS: CPT CODE: [id number] XR UGI DBL CONTRAST [id number] REASON FOR EXAM: VOMITING Exam Order Date: 09/18/2019 12:00 AM Ordering: Diana Lees MD Attending:Diana Lees MD Location:[facility]URE: Upper GI examination FINDINGS: The patient was brought to radiology and placed in the right lateral decubitus position on the table. The specialty molder radiograph shows scattered small bowel gas without evidence of obstruction. The patient was given barium to drink. The esophagus is sl ightly enlarged. Portion of the gastric fundus is noted herniated above th e diaphragm. There is a tight waist between the gastric fundus and the bod y of the stomach at the level of the diaphragm. Mild contrast pooling with in the dilated pouch. After some delay, the contrast is noted passing into the body the stomach and into the small bowel. No evidence of gastr ocolic obstruction.. The small bowel is unremarkable. Fluoroscopic time: 48 sec Fluoroscopic dose: 41 mGy Fluoroscopic images: 21 IMPRESSION: Portion of the gastric fundus herniated above the diaphragm with a tight waist between the herniated segment and the rem aining body of the stomach. There is retention of contrast within the he rniated sac but no evidence of obstruction. The contrast eventually pass ed from the herniated sac to the remaining stomach and small bowel. at 1356 Reported and signed by: Miguel Hatch M.D. CC: Anuel Rene MD Technologist: RT PATTI(R) Trnscrd Date/Time/By: 09/18/2019 (1484) : By: [email or web address] Orig Print D/T: S: 09/18/2019 (0868) PAGE 1 Signed Report [id number] 13:59:00* Test Item Value Reference Range Interpretation Comments TROPONIN-I (test code = TROPI) 0.098 ng/mL 0-0.045 HH Results called to [id number] by [email or web address] 07/25/19 1359Critical results verified and read back by Nurse? YES LIPID PROFILE (CORONARY RISK)2019-07-25 08:35:00* Test Item Value Reference Range Interpretation Comments TRIGLYCERIDES (test code = TRIG) 150 mg/dL 20-150 N CHOLESTEROL (test code = CHOL) 142 mg/dL 0-200 N CHOLESTEROL/HDL RATIO (test code = CHOLHDL) 4.0 RATIO 0-4.9 N RISK ASSOCIATED WITH CHOL/HDL RATIOS: Risk Male Female1/2 AVERAGE 3.43 3.27AVERAGE 4.97 4.442X AVERAGE 9.55 7.053X AVERAGE 23.39 11.04 REFERENCE VALUE IS RELATED TO RISK LEVELS ASRECOMMENDED BY THE LYN. HEART, LUNG, AND BLOOD INST. HDL CHOLESTEROL (test code = HDL) 33 mg/dL 40-60 L LIPOPROTEIN LDL (test code = LDL) 89 mg/dL 100-129 L Reference Interval: mg/dL mmol/L Optimal <100 <2.6Near/above optimal 100-129 2.6- 3.3Borderline High 130-159 3.4-4.1High 160-189 4.1-4.9Very High >=190 >=4.9========= This LDL result is a direct measurement.========= [id number] 08:35:00* Test Item Value Reference Range Interpretation Comments TROPONIN-I (test code = TROPI) 0.179 ng/mL 0-0.045 Results called to [id number] by [email or web address] 07/25/19 0834Critical results verified and read back by Nurse? YES COMMENTS TO AUTOMATION TENDER: COLLECT 3 HOURS AFTER PREVIOUS [id number] 05:37:00* Test Item Value Reference Range Interpretation Comments TROPONIN-I (test code = TROPI) 0.187 ng/mL 0-0.045 Results called to [id number] by [email or web address] 07/25/19 0536Critical results verified and read back by Nurse? Y COMMENTS TO AUTOMATION TENDER: COLLECT 3 HOURS AFTER PREVIOUS SAMPLE- CTA [id number] 01:41:00 Name: GEOFF PENNY [facility] : 1940 Age/S: 79 / F [address] Unit #: [id number] [place] [address] Phys: Tejas Duran MD Acct: [id number] Dis Date: Status: ADM IN PHONE #: [phone] Exam Date: 07/24/20192214 FAX #: [phone] Reason: chest pain shortness of breath EXAMS: CPT CODE: [id number] CTA CHEST EXAM: -CTA Chest , CT ABD PELVIS W/CONT HISTORY: Pain. TECHNIQUE: Axial tomograms through the chest, abdomen and pelvis were obtained after intravenous contrast. Coronal and sagittal reformatted images are provided. This exam was performed according to our departmental dose-optimization program, which includes automated exposure control, adjustment of the mA and/or kV according to patient size and/or use of iterative reconstruction technique. COMPARISON: December 06, 2012. FINDINGS: There is no definite evidence of pulmonary embolism. There is no evidence of aortic aneurysm or dissection. 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 Calcific plaques in aorta and coronary arteries. Nonspecific chronic lung changes/scarring bilaterally increased compared to prior exam. There is no definite evidence of typical findings for Covid-19 pneumonia. Trace bibasilar atelectasis. There is a moderate to large size hiatal hernia. Status post cholecystectomy. There is no free air or free fluid in abdomen or pelvis. The liver, spleen, pancreas, adrenal glands and kidneys demonstrate no significant abnormalities. The appendix has a normal appearance. The bowel is unremarkable. Degenerative changes are present in spine. There is no definite acute osseous abnormality. There is no adenopathy. IMPRESSION: No evidence of pulmonary embolus. No evidence of aortic aneurysm. Atherosclerosis. Hiatal hernia. PAGE 1 Signed Report (CONTINUED) Name: GEOFF PENNY [facility] : 1940 Age/S: 79 / F [address] [facility] Unit #: [id number] Loc: [facility] [place] [address] Phys: Tejas Duran MD Acct: [id number] Dis Date: Status: ADM IN PHONE #: [phone] Exam Date: 07/24/20192214 FAX #: [phone] Reason: chest pain shortness of breath E XAMS: CPT CODE: [id number] CTA CHEST 24820 <Continued> at 0141 Reported and signed by: Titi Andrews MD CC: Tejas Duran MD Te chnologist:Nannette Muro RT(R); ESTEVAN Mcgovern CTDI: DLP: Trnscb Date/ Time: 07/25/2019 (014) [email or web address] Orig Print D/T: S: 07/03 (014) PAGE 2 Signed Report - CT ABD PELVIS [id number] 01:12:00 Name: [facility] 1940 Age/S: 79 / F [address] [facility] Unit #: [id number] Loc: [place] [address] Phys: Tejas Duran MD Acct: [id number] Dis Date: Status: ADM IN PHONE #: [phone] Exam Date: 07/24/20192214 FAX #: [phone] Reason: abd pain h/o aneurysm Report Has Been Amended EXAMS: CPT CODE: [id number] CT ABD PELVIS W/CONT 36460 Addendum - 07/25/2019 SIGNED 07/25/2019 ADDENDUM: [id number] CT/CTABPLW These findings were discussed with Dr. Velásquez in ED at 10:50 PM. at 0112 Reported and signed by: Titi Andrews MD Transcribed: 07/25/2019 (011) [email or web address] Report EXAM: -CTA Chest , CT ABD PELVIS W/CONT HISTORY: Pain. TECHNIQUE: Axial tomograms through the chest, abdomen and pelvis were obtained after intravenous contrast. Coronal and sagittal reformatted images are provided. This exam was performed according to our departmental dose-optimization program, which includes automated exposure control, adjustment of the mA and/or kV acc ording to patient size and/or use of iterative reconstruction technique. COMPARISON: December 06, 2012. FINDINGS: There is no definite evidence of pulmonary embolism. There is no evidence of aortic aneurysm or dissection. 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 Calcific plaques in aorta and coronary arteries. Nonspecific chronic lung changes bilaterally increased compared to prior exam. There is no definite evidence of typical findings for Covid-19 pneumonia. Trace bibasilar atelectasis. The moderate to la rge size hiatal hernia. Status post cholecystectomy. There is no free air or free fluid in abdomen or pelvis. The liver, spleen, pancreas, adr enal glands and kidneys demonstrate no PAGE 1 Signed Report (CONTINUED) Name: GEOFF PENNY [facility] : 1940 Age/S: 79 / F [address] Unit #: [id number] Loc: [place] [address] Phys: Tejas Duran MD Acct: [id number] Dis Date: Status: ADM IN PHONE #: [phone] Exam Date: 07/24/20192214 FAX #: [phone] Reason: abd pain h/o aneurysm Report Has Been Amended EXAMS: CPT CODE: [id number] CT ABD PELVIS W/CONT 56202 <Continued> significant abnormalities. The appendix has a normal appearance. The bowel is unremarkable. Degenerative changes present in spine. There is no definite acute osseous abnormality. There is no adenopathy. IMPRESSION: No evidence of pulmonary embolus. No evidence of aortic aneurysm. Atherosclerosis. Hiatal hernia. at 2259 Reported and signed by: Titi Andrews MD CC: Tejas Duran MD Te chnologist:Nannette Muro RT(R); ESTEVAN Mcgovern CTDI: DLP: Trnscb Date/ Time: 07/24/2019 (225) [email or web address] Orig Print D/T: S: 07/03 (1630) PAGE 2 Signed Report - CT ABD PELVIS [id number] 22:59:00 Name: GEOFF PENNY [facility] : 1940 Age/S: 79 / F [address] Unit #: [id number] Loc: [place] [address] Phys: Tejas Duran MD Acct: [id number] Dis Date: Status: REG ER PHONE #: [phone] Exam Date: 07/24/20192214 FAX #: [phone] Reason: abd pain h/o aneurysm EXAMS: CPT CODE: [id number] CT ABD PELVIS W/CONT 19464 EXAM: -CTA Chest , CT ABD PELVIS W/CONT HISTORY: Pain. TECHNIQUE: Axial tomograms through the chest, abdomen and pelvis were obtained after intravenous contrast. Coronal and sagittal reformatted images are provided. This exam was performed according to our departmental dose-optimization program, which includes automated exposure control, adjustment of the mA and/or kV according to patient size and/or use of iterative reconstruction te chnique. COMPARISON: December 06, 2012. FINDINGS: There is no definite evidence of pulmonary embolism. There is no evidence of aortic aneurysm or dissection. Incidentally noted is an marla rrant right subclavian artery. Calcific plaques in aorta and coronary barak oliver. Nonspecific chronic lung changes bilaterally increased compared to prior exam. There is no definite evidence of typical findings for Cov id-19 pneumonia. Trace bibasilar atelectasis. The mode rate to large size hiatal hernia. Status post cholecystectomy. There is no free air or free fluid in abdomen or pelvis. The liver, spleen, pham creas, adrenal glands and kidneys demonstrate no significant abnormalities . The appendix has a normal appearance. The bowel is unremarkable . Degenerative changes present in spine. There is no definite acute osseous abnormality. There is no adenopathy. IMPRESSION: No evidence of pulmonary embolus. No evidence of aortic aneurysm. Atherosclerosis. Hiatal hernia. PAGE 1 Signed Report (CONTINUED) Name: GEOFF PENNY [facility] : 1940 Age/S: 79 / F [address] [facility] Unit #: [id number] Loc: [place] [address] Phys: Tejas Duran MD Acct: [id number] Dis Date: Status: REG ER PHONE #: [phone] Exam Date: 07/24/20194 FAX #: [phone] Reason: abd pain h/o aneurysm EXAMS: CPT CODE: [id number] CT ABD PELVIS W/CONT 63356 <Continued> at 1238 Reported and signed by: Titi Andrews MD CC: Tejas Duran MD Technologist:Nannette Muro RT(R); ESTEVAN Mcgovern CTDI: DLP: Trnscb Date/Time: 07/24/2019 (0598) [email or web address] Orig Print D/T: S: 07/24/2019 (6609) PAGE 2 Signed Report B-TYPE NATRIURETIC PEPTIDE 2019-07-24 21:07:00* Test Item Value Reference Range Interpretation Comments B-TYPE NATRIURETIC PEPTIDE (test code = BNP) 49.53 pgram/mL 0-100 N BASIC METABOLIC [id number] 21:01:00* Test Item Value Reference Range Interpretation Comments SODIUM (test code = NA) 146 mmol/L 136-145 H POTASSIUM (test code = K) 3.8 mmol/L 3.5-5.1 N CHLORIDE (test code = CL) 108.0 mmol/L 98-107 H CARBON DIOXIDE (test code = CO2) 32.0 mmol/L 21-32 N ANION GAP (test code = GAP) 9.8 10-20 L GLUCOSE (test code = GLU) 98 mg/dL 74-106 N BLOOD UREA NITROGEN (test code = BUN) 10 mg/dL 7-18 N GLOMERULAR FILTRATION RATE (test code = GFR) > 60 mL/min >=60 Estimated GFR by using Modified MDRD formula.Chronic kidney disease is defined as either kidney damageor GFR <60 mL/min/1.73 m2 for >3 months. CREATININE (test code = CREAT) 0.70 mg/dL 0.55-1.02 N Note change in reference range due to change in reagent. BUN/CREATININE RATIO (test code = BUN/CREA) 14.3 10-20 N CALCIUM (test code = CA) 8.8 mg/dL 8.5-10.1 N [id number] 21:01:00* Test Item Value Reference Range Interpretation Comments TROPONIN-I (test code = TROPI) <0.015 ng/mL 0-0.045 N BASIC METABOLIC [id number] 20:50:00* Test Item Value Reference Range Interpretation Comments SODIUM (test code = NA) 146 mmol/L 136-145 H POTASSIUM (test code = K) 3.8 mmol/L 3.5-5.1 N CHLORIDE (test code = CL) 108.0 mmol/L 98-107 H CARBON DIOXIDE (test code = CO2) mmol/L 21-32 ANION GAP (test code = GAP) 10-20 GLUCOSE (test code = GLU) mg/dL 74-106 BLOOD UREA NITROGEN (test code = BUN) mg/dL 7-18 GLOMERULAR FILTRATION RATE (test code = GFR) mL/min >=60 CREATININE (test code = CREAT) mg/dL 0.55-1.02 BUN/CREATININE RATIO (test code = BUN/CREA) 10-20 CALCIUM (test code = CA) mg/dL 8.5-10.1 NWHKSVRG-[id number] 20:50:00* Test Item Value Reference Range Interpretation Comments TROPONIN-I (test code = TROPI) ng/mL 0-0.045 CBC W/O [id number] 20:37:00* Test Item Value Reference Range Interpretation Comments WHITE BLOOD CELL (test code = WBC) K/mm3 4.5-12.5 RED BLOOD CELL (test code = RBC) mill/mm3 3.7-5.2 HEMOGLOBIN (test code = HGB) 12.1 gram/dL 11.5-15.5 N HEMATOCRIT (test code = HCT) 36.8 % 36.0-46.0 N MEAN CELL VOLUME (test code = MCV) fL 80-98 MEAN CELL HGB (test code = MCH) picogram 27.0-33.0 MEAN CELL HGB CONCETRATION (test code = MCHC) gram/dL 33.0-36. 0 RED CELL DISTRIBUTION WIDTH (test code = RDW) % 11.6-16. 2 PLATELET COUNT (test code = PLT) K/mm3 150-450 MEAN PLATELET VOLUME (test code = MPV) fL 6.7-11.0 CBC W/O [id number] 20:37:00* Test Item Value Reference Range Interpretation Comments WHITE BLOOD CELL (test code = WBC) 9.0 K/mm3 4.5-12.5 N RED BLOOD CELL (test code = RBC) 3.66 mill/mm3 3.7-5.2 L HEMOGLOBIN (test code = HGB) 12.1 gram/dL 11.5-15.5 N HEMATOCRIT (test code = HCT) 36.8 % 36.0-46.0 N MEAN CELL VOLUME (test code = MCV) 100.5 fL 80-98 H MEAN CELL HGB (test code = MCH) 33.1 picogram 27.0-33.0 H MEAN CELL HGB CONCETRATION (test code = MCHC) 32.9 gram/dL 33.0-36. 0 L RED CELL DISTRIBUTION WIDTH (test code = RDW) 11.9 % 11.6-16. 2 N PLATELET COUNT (test code = PLT) 247 K/mm3 150-450 N MEAN PLATELET VOLUME (test code = MPV) 10.0 fL 6.7-11.0 N - XR CHEST 1 [id number] 20:21:00 FAX: Tejas Duran MD [phone] [place]: St: REG Name: GEOFF MCNULTYCINDY [facility] : [birth year] Age/S: 79/F [address] [facility] Unit #: [id number] Loc: [place] [address] Phys: Tejas Duran MD Acct: [id number] Dis Date: Status: REG ER PHONE #: [phone] Exam Date: 07/24/20192014 FAX #: [phone] Reason: Shortness of Breath EXAMS: CPT CODE: [id number] XR CHEST 1 V 00207 REASON FOR EXAM: Shortness of Breath Exam Order Date: 07/24/2019 7:51 PM Ordering M.D.: Tejas Duran MD PROCEDURE: - XR CHEST 1 V COMPARISON: Chest x-ray February 03, [address] of the chest December 06, 2012 FINDINGS: The lungs are hyperinflated bilaterally. T here are reticulations in the lung bases which may represent parenchymal s carring. The mid and upper lungs are clear. Cardiomediastina l silhouette is normal in size for technique. The mediastinal contours are within normal limits. Retrocardiac lucency may represent the hiatal hernia seen on the prior CT scan Degenerative changes are seen throughout the thoracic spine and are also present in the acromioclavicular joints. The visualized upper abdomen is within normal limits. IMPRESSION: Hyperinflation of the bilateral lungs may represent an air-trapping process. Parenchymal scarring in the bilateral lung bases. Hiatal hernia. Location: [facility] at 2020 Reported and signed by: Lamberto Ha MD CC: Tejas Duran MD Technologist: Nish Mccauley RT(R; Rae Rush RT(R) Trnscrd Date/Time/By: 07/24/2019 (2020) : By: [email or web address] Orig Print D/T: S: 07/24/2019 (2024) PAGE 1 Signed Report Creatine Kinase MB 2019-02-02 10:57:00* Test Item Value Reference Range Interpretation Comments Creatine Kinase MB (test code = 79030-1) 1.50 0-5.0 [facility] HospitalTroponin [id number] 10:57:00* Test Item Value Reference Range Interpretation Comments Troponin I (test code = DDJ1703) 0.008 0-0.300 [facility] Hospital[facility] SINGLE ([facility]ABLE)2019-02-02 10:54:00 [place] [address] Patient Name: ROXANNA PENNY MR #: [id number] : 1940 Age/Sex: 79/F Req #: [id number] Adm Physician: Ordered by: YAMILA SANDRA MD Report #: [id number] Location: ER Room/Bed: Procedure: [id number] D X/CHEST SINGLE (PORTABLE) Exam Date: 02/02/19 Exam T manjeet: 1011 REPORT STATUS: Signed EXAMINATION: Chest COMPARISON: 12/12/2017. CLINICAL HISTORY: Emphys andree. DISCUSSION: Lines/tubes: None. Lungs: Patchy density in the lung bases again observed may reflect atelectasis. Biapical pleural sca rring. Pleura: There is no pleural effusion or pneumothorax. Heart an d mediastinum: Mild enlargement of the cardiac silhouette. Cusp indication o f the aortic arch. Previous described hiatal hernia is not well visualized on today's exam. Bones and soft tissues: No acute bony abnormalities. Degene rative changes in the thoracic spine IMPRESSION: 1. Bibasilar atele ctasis. Signed by: Dr. Viviana Meléndez M.D. on 02/02/2019 10:56 AM Dictated By: RICHARD MELÉNDEZ MD, MD 1056 Transcribed By: MARY KAY on 02/02/19 1056 COPY TO: YAMILA SANDRA MD Sodium Vxssl7958-73-14 10:52:00* Test Item Value Reference Range Interpretation Comments Sodium Level (test code = 2951-2) 137 136-145 [facility]Potassium Rypij0414-58-60 10:52:00* Test Item Value Reference Range Interpretation Comments Potassium Level (test code = 2823-3) 3.4 3.5-5.1 L [facility] HospitalChloride Fqqwi6666-83-34 10:52:00* Test Item Value Reference Range Interpretation Comments Chloride Level (test code = 2075-0) 98 98-107 [facility] HospitalCarbon Dioxide Jscqc8443-20-19 10:52:00* Test Item Value Reference Range Interpretation Comments Carbon Dioxide Level (test code = 2028-9) 30 22-29 H [facility] HospitalAnion Bvu7974-85-63 10:52:00* Test Item Value Reference Range Interpretation Comments Anion Gap (test code = 44645-0) 12.4 8-16 [facility] HospitalBlood Urea Luadwsne2843-79-59 10:52:00* Test Item Value Reference Range Interpretation Comments Blood Urea Nitrogen (test code = 3094-0) 12 7-26 [facility] HospitalCreatinine2019-11-02 10:52:00* Test Item Value Reference Range Interpretation Comments Creatinine (test code = 2160-0) 0.73 0.57-1.11 [facility] HospitalBUN/Creatinine Wkxnb7277-67-20 10:52:00* Test Item Value Reference Range Interpretation Comments BUN/Creatinine Ratio (test code = 3097-3) 16 6-25 [facility] HospitalEstimat Glomerular Filtration Rate 2019-02-02 10:52:00* Test Item Value Reference Range Interpretation Comments Estimat Glomerular Filtration Rate (test code = 752114958) > 60 >60 Ranges were taken from the National Kidney Disease Education Program and the [facility] Foundation literature.Reference ranges:60 or greater: Zwejic46-66 ( for 3 consecutive months): Chronic kidney disease 15 or less: Kidney failureNocona General HospitalGlucose Rcdqi8626-95-66 10:52:00* Test Item Value Reference Range Interpretation Comments Glucose Level (test code = QZE9805) 97 74-118 [facility] HospitalCalcium Dayjn9886-17-07 10:52:00* Test Item Value Reference Range Interpretation Comments Calcium Level (test code = 95740-1) 9.5 8.4-10.2 [facility] HospitalMagnesium Ekoeo9234-65-51 10:52:00* Test Item Value Reference Range Interpretation Comments Magnesium Level (test code = 07525-3) 1.8 1.3-2.1 [facility] HospitalTotal Hyifzdvcn5396-73-73 10:52:00* Test Item Value Reference Range Interpretation Comments Total Bilirubin (test code = 1975-2) 0.5 0.2-1.2 [facility] HospitalAspartate Amino Transf (AST/SGOT) 2019-02-02 10:52:00* Test Item Value Reference Range Interpretation Comments Aspartate Amino Transf (AST/SGOT) (test code = Aspartate Amino Transf (AST/SGOT)) 24 5-34 [facility] HospitalAlanine Aminotransferase (ALT/SGPT) 2019-02-02 10:52:00* Test Item Value Reference Range Interpretation Comments Alanine Aminotransferase (ALT/SGPT) (test code = 1742-6) 19 0-55 [facility] HospitalTotal Icysnbi6665-28-89 10:52:00* Test Item Value Reference Range Interpretation Comments Total Protein (test code = 2885-2) 7.4 6.5-8.1 [facility] HospitalAlbumin2019-11-02 10:52:00* Test Item Value Reference Range Interpretation Comments Albumin (test code = 1751-7) 4.2 3.5-5.0 [facility] HospitalGlobulin2019-11-02 10:52:00* Test Item Value Reference Range Interpretation Comments Globulin (test code = 80100-9) 3.2 2.3-3.5 [facility] HospitalAlbumin/Globulin Abgtd6468-53-15 10:52:00 * Test Item Value Reference Range Interpretation Comments Albumin/Globulin Ratio (test code = 1759-0) 1.3 0.8-2.0 [facility] HospitalAlkaline Jdkoodgfwyk1380-36-78 10:52:00* Test Item Value Reference Range Interpretation Comments Alkaline Phosphatase (test code = 6768-6) 72 40-150 [facility] HospitalCreatine Erayvz2781-31-54 10:52:00* Test Item Value Reference Range Interpretation Comments Creatine Kinase (test code = 2157-6) 76 29-168 [facility] HospitalUrine PJU5939-57-01 10:40:00* Test Item Value Reference Range Interpretation Comments Urine WBC (test code = 5821-4) 0-5 0-5 [facility] HospitalUrine YKD5132-74-58 10:40:00* Test Item Value Reference Range Interpretation Comments Urine RBC (test code = 86567-4) 0-5 0-5 [facility] HospitalUrine Wapnoheq0003-12-74 10:40:00* Test Item Value Reference Range Interpretation Comments Urine Bacteria (test code = 00826-2) NONE NONE [facility] HospitalUrine Epithelial Qcapl4908-03-60 10:40:00 * Test Item Value Reference Range Interpretation Comments Urine Epithelial Cells (test code = 00282-6) FEW NONE [facility] HospitalWhite Blood Smnau8927-56-96 10:29:00* Test Item Value Reference Range Interpretation Comments White Blood Count (test code = 6690-2) 10.89 4.8-10.8 H [facility] HospitalRed Blood Ulkqs9945-08-49 10:29:00* Test Item Value Reference Range Interpretation Comments Red Blood Count (test code = 789-8) 3.85 3.6-5.1 [facility] HospitalHemoglobin2019-11-02 10:29:00* Test Item Value Reference Range Interpretation Comments Hemoglobin (test code = 20384-3) 12.7 12.0-16.0 [facility] HospitalHematocrit2019-11-02 10:29:00* Test Item Value Reference Range Interpretation Comments Hematocrit (test code = 4544-3) 37.6 34.2-44.1 [facility] HospitalMean Corpuscular Iislyg3939-62-86 10:29:00* Test Item Value Reference Range Interpretation Comments Mean Corpuscular Volume (test code = 787-2) 97.7 81-99 [facility] HospitalMean Corpuscular Ilggkrqyxb3930-46-08 10:29:00* Test Item Value Reference Range Interpretation Comments Mean Corpuscular Hemoglobin (test code = 785-6) 33.0 28-32 H [facility] HospitalMean Corpuscular Hemoglobin Concent 2019-02-02 10:29:00* Test Item Value Reference Range Interpretation Comments Mean Corpuscular Hemoglobin Concent (test code = 786-4) 33.8 31-35 [facility] HospitalRed Cell Distribution Cvsey5029-56-04 10:29:00* Test Item Value Reference Range Interpretation Comments Red Cell Distribution Width (test code = 70850-3) 12.0 11.7 -14.4 [facility] HospitalPlatelet Mogtv7534-48-61 10:29:00* Test Item Value Reference Range Interpretation Comments Platelet Count (test code = 777-3) 234 140-360 [facility] HospitalNeutrophils (%) (Auto)2019-02-02 10:29:00 * Test Item Value Reference Range Interpretation Comments Neutrophils (%) (Auto) (test code = 89486-7) 82.6 38.7-80.0 H [facility] HospitalLymphocytes (%) (Auto)2019-02-02 10:29:00 * Test Item Value Reference Range Interpretation Comments Lymphocytes (%) (Auto) (test code = 736-9) 10.5 18.0-39.1 L [facility] HospitalMonocytes (%) (Auto)2019-02-02 10:29:00* Test Item Value Reference Range Interpretation Comments Monocytes (%) (Auto) (test code = 5905-5) 5.6 4.4-11.3 [facility] HospitalEosinophils (%) (Auto)2019-02-02 10:29:00 * Test Item Value Reference Range Interpretation Comments Eosinophils (%) (Auto) (test code = 713-8) 0.6 0.0-6.0 [facility] HospitalBasophils (%) (Auto)2019-02-02 10:29:00* Test Item Value Reference Range Interpretation Comments Basophils (%) (Auto) (test code = 706-2) 0.4 0.0-1.0 [facility] HospitalIM GRANULOCYTES %2019-02-02 10:29:00* Test Item Value Reference Range Interpretation Comments IM GRANULOCYTES % (test code = IM GRANULOCYTES %) 0.3 0.0- 1.0 [facility] HospitalNeutrophils # (Auto)2019-02-02 10:29:00* Test Item Value Reference Range Interpretation Comments Neutrophils # (Auto) (test code = 751-8) 9.0 2.1-6.9 H [facility] HospitalLymphocytes # (Auto)2019-02-02 10:29:00* Test Item Value Reference Range Interpretation Comments Lymphocytes # (Auto) (test code = 64319-3) 1.1 1.0-3.2 [facility] HospitalMonocytes # (Auto)2019-02-02 10:29:00* Test Item Value Reference Range Interpretation Comments Monocytes # (Auto) (test code = 742-7) 0.6 0.2-0.8 [facility] HospitalEosinophils # (Auto)2019-02-02 10:29:00* Test Item Value Reference Range Interpretation Comments Eosinophils # (Auto) (test code = 711-2) 0.1 0.0-0.4 [facility] HospitalBasophils # (Auto)2019-02-02 10:29:00* Test Item Value Reference Range Interpretation Comments Basophils # (Auto) (test code = 704-7) 0.0 0.0-0.1 [facility] HospitalAbsolute Immature Granulocyte (auto 2019-02-02 10:29:00* Test Item Value Reference Range Interpretation Comments Absolute Immature Granulocyte (auto (prosper t code = Absolute Immature Granulocyte (auto) 0.03 0-0.1 [facility] HospitalUrine Cwovj1758-01-77 10:29:00* Test Item Value Reference Range Interpretation Comments Urine Color (test code = 5778-6) YELLOW YELLOW [facility] HospitalUrine Xwjooba8869-63-32 10:29:00* Test Item Value Reference Range Interpretation Comments Urine Clarity (test code = 29138-4) CLEAR CLEAR [facility] HospitalUrine Specific Hrhsjup6588-60-29 10:29:00 * Test Item Value Reference Range Interpretation Comments Urine Specific [place] (test code = 5811-5) <=1.005 1.010-1.02 5 [facility] HospitalUrine xE4468-76-32 10:29:00* Test Item Value Reference Range Interpretation Comments Urine pH (test code = 13876-1) 7 5-7 [facility] HospitalUrine Leukocyte Fmmdcoci5512-87-74 10:29:00* Test Item Value Reference Range Interpretation Comments Urine Leukocyte Esterase (test code = 64028-2) TRACE NEGATIV E H [facility] HospitalUrine Jdtqzbc5159-45-41 10:29:00* Test Item Value Reference Range Interpretation Comments Urine Nitrite (test code = 09951-8) NEGATIVE NEGATIVE [facility] HospitalUrine Aowujhp7145-40-12 10:29:00* Test Item Value Reference Range Interpretation Comments Urine Protein (test code = 45951-3) NEGATIVE NEGATIVE [facility] HospitalUrine Glucose (UA)2019-02-02 10:29:00* Test Item Value Reference Range Interpretation Comments Urine Glucose (UA) (test code = 67888-6) NEGATIVE NEGATIVE [facility] HospitalUrine Fdtiknk0725-68-98 10:29:00* Test Item Value Reference Range Interpretation Comments Urine Ketones (test code = 79062-7) NEGATIVE NEGATIVE [facility] HospitalUrine Dlzstuzsdkns2583-53-83 10:29:00* Test Item Value Reference Range Interpretation Comments Urine Urobilinogen (test code = 76662-9) 0.2 0.2-1 [facility] HospitalUrine Vuioqvygy8739-85-48 10:29:00* Test Item Value Reference Range Interpretation Comments Urine Bilirubin (test code = 1977-8) NEGATIVE NEGATIVE [facility] HospitalUrine Etozh2210-89-27 10:29:00* Test Item Value Reference Range Interpretation Comments Urine Blood (test code = 11681-3) 1+ NEGATIVE [facility] HospitalWhite Blood Bjxbx3036-49-65 06:24:00* Test Item Value Reference Range Interpretation Comments White Blood Count (test code = 6690-2) 15.38 4.8-10.8 H [facility] HospitalRed Blood Putjb6538-98-35 06:24:00* Test Item Value Reference Range Interpretation Comments Red Blood Count (test code = 789-8) 3.28 3.6-5.1 L [facility] HospitalHemoglobin2018-09-14 06:24:00* Test Item Value Reference Range Interpretation Comments Hemoglobin (test code = 20971-6) 10.7 12.0-16.0 L [facility] HospitalHematocrit2018-09-14 06:24:00* Test Item Value Reference Range Interpretation Comments Hematocrit (test code = 4544-3) 33.0 34.2-44.1 L [facility] HospitalMean Corpuscular Bqxmkk7575-53-83 06:24:00* Test Item Value Reference Range Interpretation Comments Mean Corpuscular Volume (test code = 787-2) 100.6 81-99 H [facility] HospitalMean Corpuscular Hemaaghkme0715-21-43 06:24:00* Test Item Value Reference Range Interpretation Comments Mean Corpuscular Hemoglobin (test code = 785-6) 32.6 28-32 H [facility] HospitalMean Corpuscular Hemoglobin Concent 2017-12-15 06:24:00* Test Item Value Reference Range Interpretation Comments Mean Corpuscular Hemoglobin Concent (test code = 786-4) 32.4 31-35 [facility] HospitalRed Cell Distribution Fveuz8332-05-46 06:24:00* Test Item Value Reference Range Interpretation Comments Red Cell Distribution Width (test code = 83734-0) 11.9 11.7 -14.4 [facility] HospitalPlatelet Peyzz8688-48-88 06:24:00* Test Item Value Reference Range Interpretation Comments Platelet Count (test code = 777-3) 194 140-360 [facility] HospitalNeutrophils (%) (Auto)2017-12-15 06:24:00 * Test Item Value Reference Range Interpretation Comments Neutrophils (%) (Auto) (test code = 73125-0) 88.8 38.7-80.0 H [facility] HospitalLymphocytes (%) (Auto)2017-12-15 06:24:00 * Test Item Value Reference Range Interpretation Comments Lymphocytes (%) (Auto) (test code = 736-9) 4.5 18.0-39.1 L [facility] HospitalMonocytes (%) (Auto)2017-12-15 06:24:00* Test Item Value Reference Range Interpretation Comments Monocytes (%) (Auto) (test code = 5905-5) 6.0 4.4-11.3 [facility] HospitalEosinophils (%) (Auto)2017-12-15 06:24:00 * Test Item Value Reference Range Interpretation Comments Eosinophils (%) (Auto) (test code = 713-8) 0.0 0.0-6.0 [facility] HospitalBasophils (%) (Auto)2017-12-15 06:24:00* Test Item Value Reference Range Interpretation Comments Basophils (%) (Auto) (test code = 706-2) 0.2 0.0-1.0 [facility] HospitalIM GRANULOCYTES %2017-12-15 06:24:00* Test Item Value Reference Range Interpretation Comments IM GRANULOCYTES % (test code = IM GRANULOCYTES %) 0.5 0.0- 1.0 [facility] HospitalNeutrophils # (Auto)2017-12-15 06:24:00* Test Item Value Reference Range Interpretation Comments Neutrophils # (Auto) (test code = 751-8) 13.7 2.1-6.9 H [facility] HospitalLymphocytes # (Auto)2017-12-15 06:24:00* Test Item Value Reference Range Interpretation Comments Lymphocytes # (Auto) (test code = 62715-1) 0.7 1.0-3.2 L [facility] HospitalMonocytes # (Auto)2017-12-15 06:24:00* Test Item Value Reference Range Interpretation Comments Monocytes # (Auto) (test code = 742-7) 0.9 0.2-0.8 H [facility] HospitalEosinophils # (Auto)2017-12-15 06:24:00* Test Item Value Reference Range Interpretation Comments Eosinophils # (Auto) (test code = 711-2) 0.0 0.0-0.4 [facility] HospitalBasophils # (Auto)2017-12-15 06:24:00* Test Item Value Reference Range Interpretation Comments Basophils # (Auto) (test code = 704-7) 0.0 0.0-0.1 [facility] HospitalAbsolute Immature Granulocyte (auto 2017-12-15 06:24:00* Test Item Value Reference Range Interpretation Comments Absolute Immature Granulocyte (auto (prosper t code = Absolute Immature Granulocyte (auto) 0.07 0-0.1 [facility] HospitalCHEST 2 ZQTQX3692-83-53 12:05:00 [facility] [address] [place] [address] Patient Name: ROXANNA PENNY MR #: [id number] : 1940 Age/Sex: 77/F Req #: [id number] Adm Physician: Ordered by: DIANA LEES MD Report #: [id number] Location: OR Room/Bed: Procedure: [id number] DX/CHEST 2 VIEWS Exam Date: 12/12/17 Exam Time: 1130 REPORT STATUS: Signed EXAMINATION: PA and lateral views of the chest. COMPARISON: Portable chest 08/29/2015 CLINICAL HISTORY: Hiatal hernia, GERD, hernia repair DISCUSSION: Lines/tubes: None. Lungs: Lungs are well-inflated. Stable coarsening of the pulmonary interstitium, likely reflecting chronic int erstitial changes. No consolidation or effusion. Pleura: There is no ple ural effusion or pneumothorax. Heart and mediastinum: Cardiac silhouette i s unremarkable. Mild central venous congestion. A large hiatal hernia is agai n identified. Bones and soft tissues: No acute bony abnormalities. Degene rative changes in the thoracic spine IMPRESSION: 1. Stable coarseni ng of the interstitium, likely reflecting chronic interstitial changes. No con solidation or effusion. 2. Mild central venous congestion. 3. Large hi atal hernia. Signed by: Dr. Woody Kowalski M.D. on 12/12/2017 12:0 7 PM Dictated By: WOODY KOWALSKI MD 06 Transcribed By: MARY KAY on 12/12/171206 COPY TO : DIANA LEES MD Sodium Byvyp9706-64-89 11:44:00* Test Item Value Reference Range Interpretation Comments Sodium Level (test code = 2951-2) 140 136-145 [facility] HospitalPotassium Qdjfg8567-35-35 11:44:00* Test Item Value Reference Range Interpretation Comments Potassium Level (test code = 2823-3) 4.3 3.5-5.1 [facility] HospitalChloride Idbpt0917-20-12 11:44:00* Test Item Value Reference Range Interpretation Comments Chloride Level (test code = 2075-0) 99 98-107 [facility] HospitalCarbon Dioxide Alcik2175-34-09 11:44:00* Test Item Value Reference Range Interpretation Comments Carbon Dioxide Level (test code = 2028-9) 32 22-29 H [facility] HospitalAnion Wzp1485-30-05 11:44:00* Test Item Value Reference Range Interpretation Comments Anion Gap (test code = 98674-0) 13.3 8-16 [facility] HospitalBlood Urea Lxjvwxmw1931-44-33 11:44:00* Test Item Value Reference Range Interpretation Comments Blood Urea Nitrogen (test code = 3094-0) 13 7-26 [facility] HospitalCreatinine2018-09-11 11:44:00* Test Item Value Reference Range Interpretation Comments Creatinine (test code = 2160-0) 0.76 0.57-1.11 [facility] HospitalBUN/Creatinine Qcuvx4522-93-23 11:44:00* Test Item Value Reference Range Interpretation Comments BUN/Creatinine Ratio (test code = 3097-3) 17 6-25 [facility] HospitalEstimat Glomerular Filtration Rate 2017-12-12 11:44:00* Test Item Value Reference Range Interpretation Comments Estimat Glomerular Filtration Rate (test code = 50375-2) 60- >60 Ranges were taken from the National Kidney Disease Education Program and the [facility] literature.Reference ranges:60 or greater: Jjjerc57-12 ( for 3 consecutive months): Chronic kidney disease 15 or less: Kidney failureNocona General HospitalGlucose Juizb5068-52-70 11:44:00* Test Item Value Reference Range Interpretation Comments Glucose Level (test code = XBY8159) 81 74-118 [facility] HospitalCalcium Bwiwy9665-41-55 11:44:00* Test Item Value Reference Range Interpretation Comments Calcium Level (test code = 05056-7) 9.9 8.4-10.2 [facility]
== END 2019-11-08 16:03 | disposition home or self-care (01) ==
LOC: ER 10:51
DX: R51 Headache (principal); I10 Essential (primary) hypertension; E78.5 Hyperlipidemia, unspecified; J44.9 Chronic obstructive pulmonary disease, unspecified; F41.9 Anxiety disorder, unspecified; H81.09 Meniere's disease, unspecified ear
CPT/HCPCS: 36415; 71045; 80048; 80053; 80061; 82550; 82553; 84484; 85025; 93005; 99284; J0360; J7070

== ENCOUNTER 2019-12-25 06:04 | Emergency (ER) | payer OTHER ==
[~2019-12-25] VITALS: Ht 167.6 cm; Wt 81.2 kg
[2019-12-25] MEDS ORDERED: PANTOPRAZOLE 40 MG 10ML VIAL IV STA (06:11)
[2019-12-25] MEDS ORDERED: SODIUM CHLORIDE 0.9% 1000ML 1,000 ML IV STA (06:11)
[2019-12-25] MEDS ORDERED: ONDANSETRON HCL INJ 2MG/ML 2ML 2 MG/ML VIAL IV STA (06:11)
[2019-12-25] MEDS ORDERED: LORAZEPAM INJ 2 MG/ML VIAL IV ONE (06:30)
[2019-12-25 06:43] LABS: BASOPHILS # (AUTO) 0.1 (0.0-0.1); BASOPHILS % 0.5 % (0.0-1.0); EOSINOPHILS # (AUTO) 0.1 (0.0-0.4); EOSINOPHILS % 0.5 % (0.0-6.0); HEMATOCRIT 36.9 % (34.2-44.1); HEMOGLOBIN 12.5 g/dL (12.0-16.0); LYMPHOCYTES # (AUTO) 0.8 (1.0-3.2); LYMPHOCYTES % 7.8 % (18.0-39.1); MEAN CORPUSCULAR HEMOGLOBIN 32.6 pg (28-32); MEAN CORPUSCULAR HGB CONC 33.9 g/dL (31-35); MEAN CORPUSCULAR VOLUME 96.3 fL (81-99); MONOCYTES # (AUTO) 0.5 (0.2-0.8); MONOCYTES % 4.7 % (4.4-11.3); NEUTROPHILS # (AUTO) 8.8 (2.1-6.9); NEUTROPHILS % 86.1 % (38.7-80.0); PLATELET COUNT 232 x10e3/uL (140-360); RED BLOOD COUNT 3.83 x10e6/uL (3.6-5.1); RED CELL DISTRIBUTION WIDTH 11.9 % (11.7-14.4)
[2019-12-25 06:49] LABS: BILIRUBIN,URINE NEGATIVE (NEGATIVE); CLARITY,URINE CLEAR (CLEAR); COLOR,URINE YELLOW (YELLOW); KETONES,URINE NEGATIVE (NEGATIVE); LEUKOCYTE ESTERASE ,URINE TRACE (NEGATIVE); NITRITE,URINE NEGATIVE (NEGATIVE); PROTEIN,URINE DIPSTICK 1+ (NEGATIVE); URINE UROBILINOGEN 0.2 mg/dL (0.2 - 1)
[2019-12-25 06:56] LABS: INR 0.91; PROTHROMBIN TIME 12.7 seconds (11.9-14.5)
[2019-12-25 06:57] LABS: PARTIAL THROMBOPLASTIN TIME 33.2 seconds (23.8-35.5)
[2019-12-25 07:08] LABS: BACTERIA,URINE FEW /HPF; EPITHELIAL CELLS,URINE RARE /LPF; WBC,URINE (MAN) 0-5 /HPF (0-5)
--- NOTE | 2019-12-25 07:08 | Diagnostic Imaging Report ---
EXAMINATION: CHEST SINGLE (PORTABLE) INDICATION: ^ABD PAIN, N/V ^[id number] ^[id number] COMPARISON: 11/08/2019 FINDINGS: AP view TUBES and LINES: None. LUNGS: Lungs are well inflated. Prominent facial lung markings. PLEURA: No significant pleural effusion or pneumothorax. HEART AND MEDIASTINUM: The cardiac silhouette is enlarged. BONES AND SOFT TISSUES: No acute osseous lesion. Soft tissues are unremarkable. UPPER ABDOMEN: No free air under the diaphragm. IMPRESSION: Prominent interstitial lung markings, could be chronic or represent mild interstitial edema. Underlying pneumonia in the lower lung jules cannot be excluded in the appropriate clinical context. Signed by: Dr. Valentino Young MD on 12/25/2019 7:04 AM
--- NOTE | 2019-12-25 07:12 | NUR ---
Patient states she did not want the IV ativan at this time. Ativan wasted.
--- NOTE | 2019-12-25 07:14 | NUR ---
Report to GILMA Wells
--- NOTE | 2019-12-25 07:15 | NUR ---
RECEIVED REPORT FROM OFF GOING NURSE. PATIENT IN ROOM IN BED. AWAKE AND ALERT. NO S/S OF ACUTE DISTRESS. PENDING LAB AND RADIOLOGY REPORTS FOR DISPO.
--- NOTE | 2019-12-25 07:21 | Emergency Department Note ---
History of Present Illnes History of Present Illness Chief Complaint: General Medicine Complaints History of Present Illness This is a 79 year old female 79 Y/O FEMALE PT AAOX3 PRESENTS TO THE ER VIA EMS FROM HOME C/O ABD PAIN/N/V ONSET THIS AM AROUND 0300; PT STATES SHE SAW HER PCP YESTERDAY AND TOLD TO START TAKING HER LOSARTAN AFTER NOT TAKING MEDICATION FOR X2 WEEKS; PT NOW REPORTS UPPER ABD PAIN D/T VOMITING; PT STATES SHE TOOK X1 4MG ZOFRAN ODT AT HOME PRIOR TO EMS ARRIVING WITH NO RELIEF; NAD NOTED AT THIS TIME; PT RECEIVED 4MG ZOFRAN IV; 20G IV CATH PLACED IN LT AC BY EMS ADJUNCT PROFESSOR OF ENGLISH; PT ATTACHED TO BS/HAT BLOCKING OPERATOR; RESP EVEN/UNLABORED; EKG PERFORMED AND GIVEN TO ER MD FOR REVIEW; ER MD AT BEDSIDE FOR INITIAL EVAL. Historian: Patient Arrival Mode: [facility] Treatment ADJUNCT PROFESSOR OF ENGLISH: IV Additional Treatment ADJUNCT PROFESSOR OF ENGLISH: 20G IV LT AC; 4MG IV ZOFRAN Shear Scrapman Required: No Onset (how long ago): hour(s) Location: YAIR ABD PAIN Quality: PAIN Radiation: Reports non-radiation Severity: moderate Timing of current episode: constant Progression: waxing and waning Chronicity: recurrent Context: Denies recent illness Relieving factors: none Exacerbating factors: none Associated symptoms: Reports nausea/vomiting (X 3 THIS AM) Past Medical/Family History Physician Review I have reviewed the patient's past medical and family history. Any updates have been documented here. Past Medical History Recent Fever: No Clinical Suspicion of Infectio: No New/Unexplained Change in Ment: No Past Medical History: Hypertension, COPD, Anxiety, Hyperlipedemia Other Medical History: MENIERES DISEASE DEPRESSION ANXIETY HIATAL HERNIA RA EMPHYSEMA ISCHEMIC BOWEL Past Surgical History: Cholecysctectomy, Hysterectomy Other Surgery: SMALL INTESTINE SURGERY CATARACT SURGERY Social History Smoking Cessation: Former smoker Counseling Performed: No Alcohol Use: None Any Illegal Drug Use: No TB Exposure/Symptoms: No Physically hurt or threatened: No Family History Family history of heart diseas: No Other Last Tetanus: NA Any Pre-Existing Lines (PICC,: No Review of Systems Review of Systems Constitutional: Reports no symptoms EENTM: Reports no symptoms Cardiovascular: Reports no symptoms Respiratory: Reports no symptoms Gastrointestinal: Reports as per HPI, Reports abdominal pain, Reports nausea, Reports vomiting Genitourinary: Reports no symptoms Musculoskeletal: Reports no symptoms Integumentary: Reports no symptoms Neurological: Reports no symptoms Psychological: Reports no symptoms Endocrine: Reports no symptoms Hematological/Lymphatic: Reports no symptoms Physical Exam Related Data Allergies: Coded Allergies: codeine (Verified Allergy, Intermediate, VOMTING, SWEATS, 12/12/17) naproxen (Verified Allergy, Intermediate, HIGH BLOOD PRESSURE, 12/12/17) trazodone (Verified Allergy, Intermediate, HIGH BLOOD PRESSURE, 12/14/17) penicillin (Verified Allergy, Mild, RASH, 12/12/17) pentazocine (Verified Allergy, Mild, RASH, 12/12/17) Iodinated Contrast Media (Verified Allergy, Unknown, 12/14/17) butorphanol (Verified Allergy, Unknown, 12/12/17) caffeine (Verified Allergy, Unknown, 08/31/15) cimetidine (Verified Allergy, Unknown, 12/12/17) ergotamine (Verified Allergy, Unknown, 08/31/15) meperidine (Verified Allergy, Unknown, 12/12/17) promethazine (Verified Allergy, Unknown, 12/12/17) sertraline (Verified Allergy, Unknown, 02/02/19) Triage Vital Signs Vital Signs Date Time Temp Pulse Resp B/P (MAP) Pulse Ox O2 Delivery O2 Flow Rate FiO2 12/25/19 06:05 98.2 64 18 162/73 100 Room Air Vital signs reviewed: Yes Physical Exam CONSTITUTIONAL Constitutional: Present well-developed, Present well-nourished HENT HENT: Present normocephalic, Present atraumatic, Present oropharynx clear/moist, Present nose normal HENT L/R: Present left ext ear normal, Present right ext ear normal EYES Eyes: Reports PERRL, Reports conjunctivae normal NECK Neck: Present ROM normal PULMONARY Pulmonary: Present effort normal, Present breath sounds normal CARDIOVASCULAR Cardiovascular: Present regular rhythm, Present heart sounds normal, Present capillary refill normal, Present normal rate GASTROINTESTINAL Abdominal: Present soft, Present bowel sounds normal, Present tender (MILD YAIR TENDERNESS WITHOUT R/G); Absent guarding, Absent mass, Absent rebound, Absent hernia, Absent left CVA tenderness, Absent right CVA tenderness GENITOURINARY Genitourinary: Present exam deferred SKIN Skin: Present warm, Present dry MUSCULOSKELETAL Musculoskeletal: Present ROM normal NEUROLOGICAL Neurological: Present alert, Present oriented x 3, Present no gross motor or sensory deficits PSYCHOLOGICAL Psychological: Present mood/affect normal, Present judgement normal Results Laboratory Result Diagram: 12/25/19 0618 Laboratory Laboratory Tests Test 12/25/19 06:57 12/25/19 06:18 Sodium Level 138 mmol/L (136-145) Potassium Level 3.9 mmol/L (3.5-5.1) Chloride Level 99 mmol/L (98-107) Carbon Dioxide Level 28 mmol/L (22-29) Anion Gap 14.9 mmol/L (8-16) Blood Urea Nitrogen 12 mg/dL (7-26) Creatinine 0.72 mg/dL (0.57-1.11) Estimat Glomerular Filtration Rate > 60 ML/MIN (60-) BUN/Creatinine Ratio 17 (6-25) Glucose Level 139 mg/dL (74-118) Calcium Level 8.3 mg/dL (8.4-10.2) Magnesium Level 1.9 MG/DL (1.3-2.1) Total Bilirubin 0.4 mg/dL (0.2-1.2) Aspartate Amino Transf (AST/SGOT) 23 IU/L (5-34) Alanine Aminotransferase (ALT/SGPT) 17 IU/L (0-55) Alkaline Phosphatase 70 IU/L (40-150) Creatine Kinase 73 IU/L (29-168) Creatine Kinase MB 1.50 ng/mL (0-5.0) Troponin I 0.032 ng/mL (0-0.300) Total Protein 6.8 g/dL (6.5-8.1) Albumin 4.2 g/dL (3.5-5.0) Globulin 2.6 g/dL (2.3-3.5) Albumin/Globulin Ratio 1.6 (0.8-2.0) Amylase Level 47 U/L (25-125) Lipase 43 U/L (8-78) White Blood Count 10.23 x10e3/uL (4.8-10.8) Red Blood Count 3.83 x10e6/uL (3.6-5.1) Hemoglobin 12.5 g/dL (12.0-16.0) Hematocrit 36.9 % (34.2-44.1) Mean Corpuscular Volume 96.3 fL (81-99) Mean Corpuscular Hemoglobin 32.6 pg (28-32) Mean Corpuscular Hemoglobin Concent 33.9 g/dL (31-35) Red Cell Distribution Width 11.9 % (11.7-14.4) Platelet Count 232 x10e3/uL (140-360) Neutrophils (%) (Auto) 86.1 % (38.7-80.0) Lymphocytes (%) (Auto) 7.8 % (18.0-39.1) Monocytes (%) (Auto) 4.7 % (4.4-11.3) Eosinophils (%) (Auto) 0.5 % (0.0-6.0) Basophils (%) (Auto) 0.5 % (0.0-1.0) Neutrophils # (Auto) 8.8 (2.1-6.9) Lymphocytes # (Auto) 0.8 (1.0-3.2) Monocytes # (Auto) 0.5 (0.2-0.8) Eosinophils # (Auto) 0.1 (0.0-0.4) Basophils # (Auto) 0.1 (0.0-0.1) Absolute Immature Granulocyte (auto 0.04 x10e3/uL (0-0.1) Prothrombin Time 12.7 seconds (11.9-14.5) Prothromb Time International Ratio 0.91 Activated Partial Thromboplast Time 33.2 seconds (23.8-35.5) Urine Color Yellow (YELLOW) Urine Clarity Clear (CLEAR) Urine pH 7.5 (5 - 7) Urine Specific [place] 1.020 (1.010-1.025) Urine Protein 1+ (NEGATIVE) Urine Glucose (UA) Negative (NEGATIVE) Urine Ketones Negative (NEGATIVE) Urine Blood Trace (NEGATIVE) Urine Nitrite Negative (NEGATIVE) Urine Bilirubin Negative (NEGATIVE) Urine Urobilinogen 0.2 mg/dL (0.2 - 1) Urine Leukocyte Esterase Trace (NEGATIVE) Urine RBC 6-10 /HPF (0-5) Urine WBC 0-5 /HPF (0-5) Urine Epithelial Cells Rare /LPF (NONE) Urine Bacteria Few /HPF (NONE) Laboratory Tests Test 12/25/19 06:57 12/25/19 06:18 White Blood Count 10.23 x10e3/uL (4.8-10.8) Red Blood Count 3.83 x10e6/uL (3.6-5.1) Hemoglobin 12.5 g/dL (12.0-16.0) Hematocrit 36.9 % (34.2-44.1) Mean Corpuscular Volume 96.3 fL (81-99) Mean Corpuscular Hemoglobin 32.6 pg (28-32) Mean Corpuscular Hemoglobin Concent 33.9 g/dL (31-35) Red Cell Distribution Width 11.9 % (11.7-14.4) Platelet Count 232 x10e3/uL (140-360) Neutrophils (%) (Auto) 86.1 % (38.7-80.0) Lymphocytes (%) (Auto) 7.8 % (18.0-39.1) Monocytes (%) (Auto) 4.7 % (4.4-11.3) Eosinophils (%) (Auto) 0.5 % (0.0-6.0) Basophils (%) (Auto) 0.5 % (0.0-1.0) Neutrophils # (Auto) 8.8 (2.1-6.9) Lymphocytes # (Auto) 0.8 (1.0-3.2) Monocytes # (Auto) 0.5 (0.2-0.8) Eosinophils # (Auto) 0.1 (0.0-0.4) Basophils # (Auto) 0.1 (0.0-0.1) Absolute Immature Granulocyte (auto 0.04 x10e3/uL (0-0.1) Urine Color Yellow (YELLOW) Urine Clarity Clear (CLEAR) Urine pH 7.5 (5 - 7) Urine Specific [place] 1.020 (1.010-1.025) Urine Protein 1+ (NEGATIVE) Urine Glucose (UA) Negative (NEGATIVE) Urine Ketones Negative (NEGATIVE) Urine Blood Trace (NEGATIVE) Urine Nitrite Negative (NEGATIVE) Urine Bilirubin Negative (NEGATIVE) Urine Urobilinogen 0.2 mg/dL (0.2 - 1) Urine Leukocyte Esterase Trace (NEGATIVE) Lab results reviewed: Yes Imaging Imaging results reviewed: Yes Procedures 12 Lead ECG Interpretation ECG Interpretation : ECG: ECG 1 Shear Scrapman: Interpreted by ED physician Date: Dec 25, 2019 Time: 06:22 Rhythm: sinus rhythm Rate: normal BPM: 63 QRS axis: normal ST segments normal: Yes T wave elevation: all Clinical Impression: normal ECG Assessment & Plan Medical Decision Making MDM YAIR ABD PAIN WITH N/V - CHECK CBC, CHEM's, ECG, CARDIACS, AMYLASE/LIPASE, UA, CT ABD/PELVIS - R/O PANCREATITIS, HIATAL HERNIA, RENAL INSUFF, ELECTROLYTE ABNL, STEMI/NSTEMI, UTI, SBO, CONSTIPATION Reassessment Reassessment DC HOME, MIRALAX DIRECTED, ZOFRAN ODT, CLEAR LIQUIDS AND ADVANCE TOLERATED, F/U PCP AND DR Jaileen HOWELL, CONTINUE PPI Assessment & Plan Final Impression: (1) Hiatal hernia (2) Constipation Depart Disposition: HOME, SELF-CARE Last Vital Signs Date Time Temp Pulse Resp B/P (MAP) Pulse Ox O2 Delivery O2 Flow Rate FiO2 12/25/19 06:47 67 18 145/49 100 Room Air 12/25/19 06:05 98.2 Home Meds Reported Medications Hydrocodone Bit/Acetaminophen (NORCO 5-325 TABLET) 1 Each Tablet, 1 EACH PO Q4HR PRN for PAIN, TAB 12/15/17 [Fluticasone] No Conflict Check, 50 MCG NA PRN 12/12/17 Ipratropium/Albuterol Sulfate (COMBIVENT RESPIMAT INHAL SPRAY) 4 Gm Aer.w.adap, 4 GM IH PRN, INH 12/12/17 Paroxetine Hcl (PAROXETINE HCL) 20 Mg Tablet, 40 MG PO DAILY, #30 TAB 12/12/17 Benzonatate (BENZONATATE) 100 Mg Capsule, 100 MG PO TID, CAP 12/12/17 Levothyroxine Sodium (LEVOTHYROXINE SODIUM) 50 Mcg Tablet, 50 MCG PO DAILY, #30 TAB 08/20/15 Acetaminophen (ACETAMINOPHEN) 650 Mg Tablet, 500 MG PO 08/20/15 Alprazolam (ALPRAZOLAM) 1 Mg Tablet, 1 MG PO TID PRN for ANXIETY, #30 TAB 08/20/15 Fluoxetine Hcl (FLUOXETINE HCL) 20 Mg Capsule, 20 MG PO BID, #30 CAP 08/20/15 Medications in the ED Pantoprazole Sodium 40 mg ONCE STAT IV Last administered on 12/25/19at 06:41; Admin Dose 40 MG; Start 12/25/19 at 06:11; Stop 12/25/19 at 06:29; Status DC Ondansetron HCl 4 mg ONCE STAT IV Last administered on 12/25/19at 06:41; Admin Dose 4 MG; Start 12/25/19 at 06:11; Stop 12/25/19 at 06:29; Status DC Sodium Chloride 1,000 ml @ 0 mls/hr Q0M STAT IV Last administered on 12/25/19at 06:41; Admin Dose 999 MLS/HR; Start 12/25/19 at 06:11; Stop 12/25/19 at 06:29; Status DC Lorazepam 0.5 mg ONCE ONCE IV ; Start 12/25/19 at 06:30; Stop 12/25/19 at 06:37; Status DC YAMILA SANDRA MD Dec 25, 2019 07:21
[2019-12-25 07:42] LABS: ALANINE AMINOTRANSFERASE 17 IU/L (0-55); ALBUMIN 4.2 g/dL (3.5-5.0); ALBUMIN/GLOBULIN RATIO 1.6 (0.8-2.0); ALKALINE PHOSPHATASE 70 IU/L (40-150); AMYLASE 47 U/L (25-125); ANION GAP 14.9 mmol/L (8-16); BLOOD UREA NITROGEN 12 mg/dL (7-26); BUN/CREATININE RATIO 17 (6-25); CALCIUM 8.3 mg/dL (8.4-10.2); CARBON DIOXIDE 28 mmol/L (22-29); CHLORIDE 99 mmol/L (98-107); CREATINE KINASE 73 IU/L (29-168); CREATININE, SERUM 0.72 mg/dL (0.57-1.11); EST GLOMERULAR FILTRATION RATE > 60 ML/MIN (60-); GLUCOSE 139 mg/dL (74-118); LIPASE 43 U/L (8-78); MAGNESIUM 1.9 MG/DL (1.3-2.1); POTASSIUM 3.9 mmol/L (3.5-5.1); SODIUM 138 mmol/L (136-145)
--- NOTE | 2019-12-25 07:49 | NUR ---
0.5 MG ATIVAN GIVEN IV PUSH PER ORDERS.
[2019-12-25] MEDS ORDERED: BELLADONNA ALK/PHENOBARBITAL 5 ML UDC PO ONE (08:30)
[2019-12-25] MEDS ORDERED: MAGNESIUM/ALUMINUM/SIMETHICONE 30 ML UDC PO ONE (08:30)
[2019-12-25] MEDS ORDERED: LIDOCAINE VISC 2% SOLN 15 ML UDC PO ONE (08:30)
--- NOTE | 2019-12-25 08:41 | Diagnostic Imaging Report ---
EXAM: CT Abdomen and Pelvis WITHOUT intravenous contrast INDICATION: Abdominal pain COMPARISON: CT abdomen and pelvis of 08/20/2015 TECHNIQUE: Abdomen and pelvis were scanned utilizing a multidetector helical scanner from the lung base to the pubic symphysis without administration of IV contrast. Coronal and sagittal reformations were obtained. IV CONTRAST: None ORAL CONTRAST: Gastrografin COMPLICATIONS: None RADIATION DOSE: Total DLP: 406 mGy*cm Dose modulation, iterative reconstruction, and/or weight based adjustment of the mA/kV was utilized to reduce the radiation dose to as low as reasonably achievable. FINDINGS: LOWER THORAX: Mild bibasilar subsegmental atelectasis. No focal lung base consolidation. HEPATOBILIARY: No focal liver lesion. Status post cholecystectomy. SPLEEN: No splenomegaly. PANCREAS: No focal masses or ductal dilatation. ADRENALS: No adrenal nodules. KIDNEYS/URETERS: 3 mm right upper pole nonobstructive renal calculus. No hydronephrosis or hydroureter. No solid renal mass lesion. PELVIC ORGANS/BLADDER: Hysterectomy. Distended bladder. PERITONEUM / RETROPERITONEUM: No free air or fluid. LYMPH NODES: No lymphadenopathy. VESSELS: Diffuse atherosclerotic calcifications of the nonaneurysmal abdominal aorta and major branches. GI TRACT: Moderate hiatal hernia with residual oral contrast material in the intrathoracic portion of the stomach. Findings of prior fundoplication. No abnormal bowel thickening. No bowel obstruction. Diverticulosis without CT evidence of diverticulitis. Increased stool burden throughout the colon, compatible with constipation. BONES AND SOFT TISSUES: No acute osseous injury. Mild diffuse osteopenia. Grade 1 anterolisthesis at L4-5. Multilevel degenerative changes of the visualized spine. Degenerative changes of both hip joints. IMPRESSION: Moderate hiatal hernia with pooling of residual oral contrast material in the intrathoracic portion of the stomach. Findings of prior fundoplication. Diverticulosis without CT evidence of diverticulitis. Increased stool burden throughout the colon, compatible with constipation. 3 mm right upper pole nonobstructive renal calculus. No hydronephrosis. Signed by: Adina Esquivel MD on 12/25/2019 8:38 AM
== END 2019-12-25 09:48 | disposition home or self-care (01) ==
LOC: ER 07:10
DX: K59.00 Constipation, unspecified (principal); K44.9 Diaphragmatic hernia without obstruction or gangrene; R10.9 Unspecified abdominal pain; R11.2 Nausea with vomiting, unspecified; I10 Essential (primary) hypertension; E78.5 Hyperlipidemia, unspecified; J44.9 Chronic obstructive pulmonary disease, unspecified; F41.9 Anxiety disorder, unspecified; H81.09 Meniere's disease, unspecified ear
CPT/HCPCS: 36415; 71045; 74176; 80053; 81001; 82150; 82550; 82553; 83690; 83735; 84484; 85025; 85610; 85730; 87086; 93005; 99284; J2060; J2405; J7030

== ENCOUNTER 2019-12-30 02:54 | Inpatient (IN) | payer OTHER ==
[~2019-12-30] VITALS: Ht 157.5 cm; Wt 64.0 kg
[2019-12-30] MEDS ORDERED: PANTOPRAZOLE 40 MG 10ML VIAL IV STA (03:05)
[2019-12-30] MEDS ORDERED: ONDANSETRON HCL INJ 2MG/ML 2ML 2 MG/ML VIAL IV STA (03:05)
[2019-12-30] MEDS ORDERED: HYDRALAZINE HCL 20 MG/ML VIAL IV STA (03:10)
[2019-12-30 03:19] LABS: BASOPHILS # (AUTO) 0.1 (0.0-0.1); BASOPHILS % 0.5 % (0.0-1.0); EOSINOPHILS # (AUTO) 0.3 (0.0-0.4); EOSINOPHILS % 2.3 % (0.0-6.0); HEMATOCRIT 36.6 % (34.2-44.1); HEMOGLOBIN 12.2 g/dL (12.0-16.0); LYMPHOCYTES # (AUTO) 1.7 (1.0-3.2); LYMPHOCYTES % 14.7 % (18.0-39.1); MEAN CORPUSCULAR HEMOGLOBIN 32.4 pg (28-32); MEAN CORPUSCULAR HGB CONC 33.3 g/dL (31-35); MEAN CORPUSCULAR VOLUME 97.3 fL (81-99); MONOCYTES # (AUTO) 0.7 (0.2-0.8); MONOCYTES % 6.1 % (4.4-11.3); NEUTROPHILS # (AUTO) 8.8 (2.1-6.9); PLATELET COUNT 233 x10e3/uL (140-360); RED BLOOD COUNT 3.76 x10e6/uL (3.6-5.1); RED CELL DISTRIBUTION WIDTH 11.9 % (11.7-14.4)
--- NOTE | 2019-12-30 03:22 | Emergency Department Note ---
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 Historian: Patient, Psychiatry Adult Physician/EMS Arrival Mode: [facility] Additional Treatment RESULTS ENGINEER: 20G IV CATH LT AC Patroller Required: No Onset (how long ago): hour(s) (2) Location: NONE Quality: ELEVATED BLOOD PRESSURE Radiation: Reports non-radiation Severity: moderate Onset quality: unable to specify Duration (how long): hour(s) (2) Timing of current episode: constant Progression: unchanged Chronicity: recurrent Context: Denies recent illness, Denies recent surgery, Denies trauma/injury Relieving factors: none Exacerbating factors: none Associated symptoms: Reports nausea/vomiting (THAT STARTED WHEN SHE GOT MOTION SICK IN AMBULANCE) Treatments prior to arrival: none Past Medical/Family History Physician Review I have reviewed the patient's past medical and family history. Any updates have been documented here. Past Medical History Recent Fever: No Clinical Suspicion of Infectio: No New/Unexplained Change in Ment: No Past Medical History: Hypertension, COPD, Anxiety, Hyperlipedemia Other Medical History: MENIERES DISEASE DEPRESSION ANXIETY HIATAL HERNIA RA EMPHYSEMA ISCHEMIC BOWEL Past Surgical History: Cholecysctectomy, Hysterectomy Other Surgery: SMALL INTESTINE SURGERY CATARACT SURGERY Social History Smoking Cessation: Former smoker Alcohol Use: None Any Illegal Drug Use: No Family History Family history of heart diseas: No Other Last Tetanus: NA Review of Systems Review of Systems Constitutional: Reports no symptoms EENTM: Reports no symptoms Cardiovascular: Reports no symptoms Respiratory: Reports no symptoms Gastrointestinal: Reports nausea, Reports vomiting Genitourinary: Reports no symptoms Musculoskeletal: Reports no symptoms Integumentary: Reports no symptoms Neurological: Reports no symptoms Psychological: Reports no symptoms Endocrine: Reports no symptoms Hematological/Lymphatic: Reports no symptoms Physical Exam Related Data Allergies: Coded Allergies: codeine (Verified Allergy, Intermediate, VOMTING, SWEATS, 12/12/17) naproxen (Verified Allergy, Intermediate, HIGH BLOOD PRESSURE, 12/12/17) trazodone (Verified Allergy, Intermediate, HIGH BLOOD PRESSURE, 12/14/17) penicillin (Verified Allergy, Mild, RASH, 12/12/17) pentazocine (Verified Allergy, Mild, RASH, 12/12/17) Iodinated Contrast Media (Verified Allergy, Unknown, 12/14/17) butorphanol (Verified Allergy, Unknown, 12/12/17) caffeine (Verified Allergy, Unknown, 08/31/15) cimetidine (Verified Allergy, Unknown, 12/12/17) ergotamine (Verified Allergy, Unknown, 08/31/15) meperidine (Verified Allergy, Unknown, 12/12/17) promethazine (Verified Allergy, Unknown, 12/12/17) sertraline (Verified Allergy, Unknown, 02/02/19) Triage Vital Signs Vital Signs Date Time Temp Pulse Resp B/P (MAP) Pulse Ox O2 Delivery O2 Flow Rate FiO2 12/30/19 02:54 98.5 74 20 216/95 95 Room Air Vital signs reviewed: Yes Physical Exam CONSTITUTIONAL Constitutional: Present well-developed, Present well-nourished HENT HENT: Present normocephalic, Present atraumatic, Present oropharynx clear/moist, Present nose normal HENT L/R: Present left ext ear normal, Present right ext ear normal EYES Eyes: Reports PERRL, Reports conjunctivae normal NECK Neck: Present ROM normal PULMONARY Pulmonary: Present effort normal, Present breath sounds normal CARDIOVASCULAR Cardiovascular: Present regular rhythm, Present heart sounds normal, Present capillary refill normal, Present normal rate GASTROINTESTINAL Abdominal: Present soft, Present nontender, Present bowel sounds normal GENITOURINARY Genitourinary: Present exam deferred SKIN Skin: Present warm, Present dry MUSCULOSKELETAL Musculoskeletal: Present ROM normal NEUROLOGICAL Neurological: Present alert, Present oriented x 3, Present no gross motor or sensory deficits PSYCHOLOGICAL Psychological: Present mood/affect normal, Present judgement normal Results Laboratory Laboratory Laboratory Tests Test 12/30/19 03:03 White Blood Count 11.60 x10e3/uL (4.8-10.8) Red Blood Count 3.76 x10e6/uL (3.6-5.1) Hemoglobin 12.2 g/dL (12.0-16.0) Hematocrit 36.6 % (34.2-44.1) Mean Corpuscular Volume 97.3 fL (81-99) Mean Corpuscular Hemoglobin 32.4 pg (28-32) Mean Corpuscular Hemoglobin Concent 33.3 g/dL (31-35) Red Cell Distribution Width 11.9 % (11.7-14.4) Platelet Count 233 x10e3/uL (140-360) Neutrophils (%) (Auto) 76.0 % (38.7-80.0) Lymphocytes (%) (Auto) 14.7 % (18.0-39.1) Monocytes (%) (Auto) 6.1 % (4.4-11.3) Eosinophils (%) (Auto) 2.3 % (0.0-6.0) Basophils (%) (Auto) 0.5 % (0.0-1.0) Neutrophils # (Auto) 8.8 (2.1-6.9) Lymphocytes # (Auto) 1.7 (1.0-3.2) Monocytes # (Auto) 0.7 (0.2-0.8) Eosinophils # (Auto) 0.3 (0.0-0.4) Basophils # (Auto) 0.1 (0.0-0.1) Absolute Immature Granulocyte (auto 0.05 x10e3/uL (0-0.1) Sodium Level 136 mmol/L (136-145) Potassium Level 3.6 mmol/L (3.5-5.1) Chloride Level 96 mmol/L (98-107) Carbon Dioxide Level 27 mmol/L (22-29) Anion Gap 16.6 mmol/L (8-16) Blood Urea Nitrogen 12 mg/dL (7-26) Creatinine 0.75 mg/dL (0.57-1.11) Estimat Glomerular Filtration Rate > 60 ML/MIN (60-) BUN/Creatinine Ratio 16 (6-25) Glucose Level 117 mg/dL (74-118) Calcium Level 9.2 mg/dL (8.4-10.2) Total Bilirubin 0.5 mg/dL (0.2-1.2) Aspartate Amino Transf (AST/SGOT) 22 IU/L (5-34) Alanine Aminotransferase (ALT/SGPT) 16 IU/L (0-55) Alkaline Phosphatase 65 IU/L (40-150) Creatine Kinase 67 IU/L (29-168) Creatine Kinase MB 1.10 ng/mL (0-5.0) Troponin I 0.009 ng/mL (0-0.300) Total Protein 7.3 g/dL (6.5-8.1) Albumin 4.6 g/dL (3.5-5.0) Globulin 2.7 g/dL (2.3-3.5) Albumin/Globulin Ratio 1.7 (0.8-2.0) Amylase Level 44 U/L (25-125) Lipase 34 U/L (8-78) Lab results reviewed: Yes Imaging Imaging results reviewed: Yes Impressions Procedure: [id number] CT/CT BRAIN WO Exam Date: 12/30/19 Exam Time: 339 REPORT STATUS: Signed EXAMINATION: Head CT HISTORY: 79-year-old female with headache and hypertension COMPARISON: None. TECHNIQUE: Helical axial images of the head were obtained. Reformatted coronal and sagittal images from the axial data. Dose modulation, iterative reconstruction, and/or weight based adjustment of the mA/kV was utilized to reduce the radiation dose to as low as reasonably achievable. FINDINGS: Parenchyma: 1. A few scattered white matter hypodensities, most likely age-related minimal chronic microvascular ischemic changes. Possible tiny chronic lacunar infarct in the left thalamocapsular region. 2. No mass or hemorrhage. No CT evidence of acute territorial vascular insult. Extra-axial spaces:No abnormal density. No extra-axial fluid collections Brain volume: Normal for age. Ventricles: No hydrocephalus or displacement. Arteries: No density suggestive of thrombus. Dural sinuses: No abnormal density. Foramen magnum: No mass, Chiari malformation, or basilar invagination. Sella: No obvious mass. Paranasal/mastoid sinuses: Imaged portions unremarkable. Skull/Scalp: No lytic or blastic lesions. No fractures. IMPRESSION: No acute intracranial abnormalities, particularly no hemorrhage. Signed by: Dr. Darby Garces M.D. on 12/30/2019 4:29 AM Dictated By: DARBY GARCES MD 8 Transcribed By: MARY KAY on 12/30/19428 COPY TO: JONY CHONG MD~ Procedures 12 Lead ECG Interpretation ECG Interpretation : ECG: ECG 1 Patroller: Interpreted by ED physician Date: Dec 30, 2019 Time: 03:02 Rhythm: sinus rhythm Rate: normal BPM: 75 QRS axis: normal ST segments normal: Yes T waves normal: Yes Clinical Impression: normal ECG Assessment & Plan Medical Decision Making MDM PT WITH ELEVATED BLOOD PRESSURE AND DEVELOPED N/V WHILE IN AMBULANCE ON THE WAY TO THE ER EKG, CBC, CMP, CARDIAC ENZYMES, CT BRAIN ORDERED TO EVAL FOR MYOCARDIAL INFARCTION, ELECTROLYTE ABNORMALITY, INTRACRANIAL ABNORMALITY, ZOFRAN 4 MG IV ORDERED PROTONIX 40 MG IV ORDERED HYDRALAZINE 10 MG IV ORDERED Assessment & Plan Final Impression: (1) Nausea (2) Hypertensive urgency (3) UTI (urinary tract infection) (4) Vomiting Depart Disposition: ADMITTED Last Vital Signs Date Time Temp Pulse Resp B/P (MAP) Pulse Ox O2 Delivery O2 Flow Rate FiO2 12/30/19 02:54 98.5 74 20 216/95 95 Room Air Home Meds Reported Medications Hydrocodone Bit/Acetaminophen (NORCO 5-325 TABLET) 1 Each Tablet, 1 EACH PO Q4HR PRN for PAIN, TAB 12/15/17 [Fluticasone] No Conflict Check, 50 MCG NA PRN 12/12/17 Ipratropium/Albuterol Sulfate (COMBIVENT RESPIMAT INHAL SPRAY) 4 Gm Aer.w.adap, 4 GM IH PRN, INH 12/12/17 Paroxetine Hcl (PAROXETINE HCL) 20 Mg Tablet, 40 MG PO DAILY, #30 TAB 12/12/17 Benzonatate (BENZONATATE) 100 Mg Capsule, 100 MG PO TID, CAP 12/12/17 Levothyroxine Sodium (LEVOTHYROXINE SODIUM) 50 Mcg Tablet, 50 MCG PO DAILY, #30 TAB 08/20/15 Acetaminophen (ACETAMINOPHEN) 650 Mg Tablet, 500 MG PO 08/20/15 Alprazolam (ALPRAZOLAM) 1 Mg Tablet, 1 MG PO TID PRN for ANXIETY, #30 TAB 08/20/15 Fluoxetine Hcl (FLUOXETINE HCL) 20 Mg Capsule, 20 MG PO BID, #30 CAP 08/20/15 Medications in the ED Ondansetron HCl 4 mg NOW STAT IV ; Start 12/30/19 at 03:05; Stop 12/30/19 at 03:12; Status DC Pantoprazole Sodium 40 mg NOW STAT IV ; Start 12/30/19 at 03:05; Stop 12/30/19 at 03:12; Status DC Hydralazine HCl 10 mg NOW STAT IV ; Start 12/30/19 at 03:10; Stop 12/30/19 at 03:12; Status DC JONY CHONG MD Dec 30, 2019 03:22
--- OUTSIDE RECORDS SUMMARY | 2019-12-30 03:23 | XMS REPORT | Continuity of Care Document ---
Author Author [facility] t Organization [facility] Address 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 Name Role Phone Nano LINO PCP Darby SANDRA Attphys Unavailable SANDHIRSuzi Attphys Unavailable DIANA LEES Attphys Unavailable Payers Payer Name Policy Type Policy Number Effective Date Expiration Date Suzi Leyva Plus [id number] 2017 00:00:00 DARLENE [facility] Problems Condition Name Condition Details Condition Category Status Onset Date Resolution Date Last Treatment Date Treating Clinician Comments Source Hypothyroidism Hypothyroidism Problem Active 2019-12-04 00:00:00 [facility] Anxiety Anxiety Problem Active 2019-12-04 00:00:00 [facility] Essential hypertension Essential Hypertension Problem Active 2019-12-04 00:00:00 [facility] Seasonal allergic rhinitis Seasonal Allergic Rhinitis Problem Active 2019-12-04 00:00:00 [facility] Chronic obstructive lung disease Chronic Obstructive Lung Diseas e Problem Active 2019-12-04 00:00:00 [facility] Gastroesophageal reflux disease Gastroesophageal Reflux Disease Pro blem Active 2019-12-04 00:00:00 [facility] Small intestinal infarction Small Intestinal Infarction Problem Active 2015-08-20 00:00:00 [facility] Headache Problem Active [facility] Hiatal hernia Problem Active [facility] Constipation Problem Active [facility] Allergies, Adverse Reactions, Alerts Allergy Name Allergy Type Status Severity Reaction(s) Onset Date Inacti ve Date Treating Clinician Comments Source nifedipine DA Active U 2019-09-28 00:00:00 [facility] escitalopram DA Active U 2019-09-28 00:00:00 [facility] ergotamine tartrate DA Active U 2019-07-25 00:00:00 [facility] meperidine HCl DA Active U 2019-07-25 00:00:00 [facility] butorphanol tartrate DA Active U 2019-07-25 00:00:00 [facility] Pentazocine Lactate DA Active U 2019-07-25 00:00:00 [facility] caffeine FA Active U 2019-07-25 00:00:00 [facility] codeine DA Active U 2019-07-25 00:00:00 [facility] naproxen DA Active U 2019-07-25 00:00:00 [facility] cimetidine DA Active U 2019-07-25 00:00:00 [facility] trazodone DA Active U 2019-07-25 00:00:00 [facility] sertraline DA Active U 2019-07-25 00:00:00 [facility] penicillin G DA Active U 2019-07-25 00:00:00 [facility] ergotamine tartrate DA Active U 2019-07-24 00:00:00 [facility] meperidine HCl DA Active U 2019-07-24 00:00:00 [facility] butorphanol tartrate DA Active U 2019-07-24 00:00:00 [facility] Pentazocine Lactate DA Active U 2019-07-24 00:00:00 [facility] caffeine FA Active U 2019-07-24 00:00:00 [facility] iodine DA Active U 2019-07-24 00:00:00 [facility] codeine DA Active U 2019-07-24 00:00:00 [facility] naproxen DA Active U 2019-07-24 00:00:00 [facility] cimetidine DA Active U 2019-07-24 00:00:00 [facility] trazodone DA Active U 2019-07-24 00:00:00 [facility] sertraline DA Active U 2019-07-24 00:00:00 [facility] penicillin G DA Active U 2019-07-24 00:00:00 [facility] Sertraline Allergy to substance Active 2019-02-02 00:00:00 [facility] Trazodone Allergy to substance Active 2017-12-14 00:00:00 [facility] Iodinated Contrast Media Allergy to substance Active 20 19-12-12 00:00:00 [facility] Codeine Allergy to substance Active 2017-12-12 00:00:00 [facility] Butorphanol Allergy to substance Active 2017-12-12 00:00:00 [facility] Cimetidine Allergy to substance Active 2017-12-12 00:00:00 [facility] Meperidine Allergy to substance Active 2017-12-12 00:00:00 [facility] Naproxen Allergy to substance Active 2017-12-12 00:00:00 [facility] Pentazocine Allergy to substance Active 2017-12-12 00:00:00 [facility] Promethazine Allergy to substance Active 2017-12-12 00:00:0 0 [facility] penicillin Allergy to substance Active Mild RASH 2017-12-12 00:00:00 [facility] Caffeine Allergy to substance Active 2015-08-31 00:00:00 [facility] Ergotamine Allergy to substance Active 2015-08-31 00:00:00 [facility] ergotamine tartrate DA Active U 2010-02-03 00:00:00 [facility] meperidine HCl DA Active U 2010-02-03 00:00:00 [facility] butorphanol tartrate DA Active U 2010-02-03 00:00:00 [facility] Pentazocine Lactate DA Active U 2010-02-03 00:00:00 [facility] caffeine FA Active U 2010-02-03 00:00:00 [facility] iodine DA Active U 2010-02-03 00:00:00 [facility] codeine DA Active U 2010-02-03 00:00:00 [facility] penicillin G DA Active U 2010-02-03 00:00:00 [facility] TUNA DA Active U 2010-02-03 00:00:00 [facility] Demerol Allergy to substance Active [facility] Estradiol Allergy to substance Active [facility] PENICILLINS Allergy to substance Active [facility] Phenergan Allergy to substance Active [facility] Talwin Allergy to substance Active [facility] Zoloft Allergy to substance Active [facility] Zithromax Allergy to substance Active Moderate Vomiting [facility] Social History Social Habit Start Date Stop Date Quantity Comments Source Sex Assigned At 1940 00:00:00 1940 00:00:00 Female [facility] Smoking Status Start Date Stop Date Source Former Smoker [facility] ractice Medications Ordered Medication Name Filled Medication Name Start Date Stop Da te Current Medication? Ordering Clinician Indication Dosage Frequency Signature (SIG) Comments Components Source alprazolam 1 mg tablet Take 1 tablet twice a day by or al route for 30 days. alprazolam 1 mg tablet Take 1 tablet twice a day by oral route for 30 days. No 1 BID alprazolam 1 mg tablet Take 1 tablet twice a day by oral route for 30 days. [facility] 100 mg tablet Take 1 tablet twice a day by oral route for 7 days. doxycycline hyclate 100 mg tablet Take 1 tablet twice a day by oral route for 7 days. No doxycycline hyclate 100 mg tablet Take 1 tablet twice a day by oral route for 7 days. [facility] fluoxetine 10 mg capsule Take 1 capsule every day by o ral route for 30 days. fluoxetine 10 mg capsule Take 1 capsule every day by oral route for 30 days. No 1capsule(s) Q1D fluoxetine 10 mg capsule Take 1 capsule every day by oral route for 30 days. [facility] fluticasone propionate 50 mcg/actuation nasal spray,suspension 1 spray each nostril twice a day fluticasone propionate 50 mcg/actuation nasal spray,suspension 1 spray each nostril twice a day No fluticasone propionate 50 mcg/actuation nasal spray,suspension 1 spray each nostril twice a day [facility] lansoprazole 30 mg capsule,delayed relea se Take 1 capsule twice a day by oral route before meals. lansoprazole 30 mg capsule,delayed relea se Take 1 capsule twice a day by oral route before meals. No 1capsule(s) BID lansoprazole 30 mg capsule,delayed release Take 1 capsule twice a day by oral route before meals. [facility] levothyroxine 50 mcg tablet Take 1 tablet every day by oral route. levothyroxine 50 mcg tablet Take 1 tablet every day by oral route. No 1 Q1D levothyroxine 50 mcg tablet Take 1 tablet every day by oral route. [facility] losartan 25 mg tablet Take 1 tablet twice a day by ora l route. losartan 25 mg tablet Take 1 tablet twice a day by oral route. No 1 BID losartan 25 mg tablet Take 1 tablet twice a day by oral route. [facility] Tylenol Extra Strength 500 mg tablet Itz e 2 tablets every 6 hours by oral route. Tylenol Extra Strength 500 mg tablet Itz e 2 tablets every 6 hours by oral route. No [address] rength 500 mg tablet Take 2 tablets every 6 hours by oral route. [facility] karam Acetaminophen Acetaminophen Yes 500 [facility] Alprazolam Alprazolam Yes 1 Three Time s A Day as needed for Anxiety [facility] Benzonatate Benzonatate Yes 100 Three Times A Da y [facility] Fluoxetine Hcl Fluoxetine Hcl Yes 20 Twice A Da y [facility] Fluticasone Fluticasone Yes 50 As Needed [facility] Hydrocodone Bit/Acetaminophen ([place] 5-325 Tablet) 1 E ach TABLET Hydrocodone Bit/Acetaminophen ([place] 5-325 Tablet) 1 Each TABLET Yes 1 Every 4 Hours as needed for Pain [facility] Ipratropium/Albuterol Sulfate (Combivent Respimat Inha l [place]) 4 Gm AER.W.ADAP Ipratropium/Albuterol Sulfate (Combivent Respimat Inhal [place]) 4 Gm AER.W.ADAP Yes 4 As Needed [facility] Levothyroxine Sodium Levothyroxine Sodium Yes 50 Daily [facility] Paroxetine Hcl Paroxetine Hcl Yes 40 Daily [facility] Lansoprazole Lansoprazole 2017-12-15 00:00:00 No 30 Daily [facility] Fexofenadine Hcl (Raegan Allergy) 60 Mg TABLET Fexofe bruce Hcl (Raegan Allergy) 60 Mg TABLET 2017-12-12 00:00:00 No 20 Tw ice A Day [facility] Fexofenadine Hcl (Raegan Allergy) 60 Mg TABLET Fexofe bruce Hcl (Raegan Allergy) 60 Mg TABLET 2017-12-12 00:00:00 No 60 [facility] Furosemide Furosemide 2017-12-12 00:00:00 No 20 Lissette ly [facility] Potassium Chloride Potassium Chloride 2017-12-12 00:00:00 No 10 Daily [facility] Vital Signs Vital Name Observation Time Observation Value Comments Source Height 2019-12-24 00:00:00 62.5 [in_i] [facility] BP Diastolic 2019-12-16 00:00:00 67 mm[Hg] [facility] Height 2019-12-16 00:00:00 62.5 [in_i] [facility] BP Systolic 2019-12-16 00:00:00 123 mm[Hg] [facility] BP Diastolic 2019-12-10 00:00:00 61 mm[Hg] [facility] Height 2019-12-10 00:00:00 62.5 [in_i] [facility] BMI (Body Mass Index) 2019-12-10 00:00:00 27 kg/m2 [facility] BP Systolic 2019-12-10 00:00:00 97 mm[Hg] [facility] Body Weight 2019-12-10 00:00:00 150 [lb_av] [facility] Weight 2019-12-25 06:05:00 179 [lb_av] [facility] BMI (Body Mass Index) 2019-12-25 06:05:00 28.9 kg/m2 [facility] Weight 2019-11-08 10:36:00 179 [lb_av] [facility] BMI (Body Mass Index) 2019-11-08 10:36:00 28.9 kg/m2 [facility] Procedures Procedure Date / Time Performed Performing Clinician [facility] geovany CT of abdomen and pelvis without contrast 2019-12-25 00:00:00 [facility] EMERGENCY DEPT VISIT 2019-11-08 00:00:00 [facility] Plan of Care Planned Activity Planned Date Details Comments Source Future Appointment 2020-01-21 00:00:00 Soni Lino, [address]; [address], [place] [address] [facility] Instructions Abdominal Pain - Adult [facility] Instructions Constipation - Adult [facility] Instructions Vomiting - Adult [facility] Encounters Start Date/Time End Date/Time Encounter Type Admission Type [facility] Facility Care Department Encounter ID Source 2019-12-25 07:10:00 2019-12-25 09:48:00 Departed Emergency Room 1 BOAZYAMILA [facility] [id number] [facility] 2019-12-24 00:00:00 2019-12-24 00:00:00 Soni Lino MD: [address], [address], [place] [address], Ph. [facility] - VM_KEVIN_Eleazar (WAG) [id number] [facility] e 2019-12-17 00:00:00 2019-12-17 00:00:00 Armani elizalde MD: [address] [facility] [address], [place] [address], Ph. [facility] - VM_HOU_[place] [id number] [facility] 2019-12-16 00:00:00 2019-12-16 00:00:00 Soni Lino MD: [address], [address], [place] [address], Ph. [facility] [place] [facility] - VM_HOU_[place] (WAG) [id number] [facility] 2019-12-10 00:00:00 2019-12-10 00:00:00 Soni Lino MD: [address], [address], [place] [address], Ph. [facility] [place] [facility] - VM_HOU_[place] (WAG) [id number] [facility] 2019-12-04 00:00:00 2019-12-04 00:00:00 Soni Lino MD: [address], [address], [place] [address], Ph. [facility] [place] [facility] - VM_HOU_[place] (WAG) [id number] [facility] 2019-11-08 10:51:00 2019-11-08 16:03:00 Departed Emergency Room INESSA MITTAL [facility] [id number] Chris [facility] 2019-02-02 09:30:00 2019-02-02 13:12:00 Departed Emergency Room 1 YAMILA SANDRA [facility] [id number] [facility] 2017-12-14 18:16:00 2017-12-15 16:24:00 [id number] Results Test Description Test Time Test Comments Results Result Comments Source CT ABDOMEN/PELVIS WO 2019-12-25 08:30:00 [facility] [address] [place] [address] Patient Name: ROXANNA PENNY MR #: [id number] : 1940 Age/Sex: 79/F Req #: [id number] Adm Physician: Ordered by: YAMILA SANDRA MD Report #: [id number] Location: ER Room/Bed: Procedure: [id number] CT/CT ABDOMEN/PELVIS WO Exam Date: 12/25/19 Exam Time: 0800 REPORT STATUS: Signed EXAM: CT Abdomen and Pelvis WITHOUT intravenous contrast INDICATION: Abdominal pain COMPARISON: CT abdomen and pelvis of 08/20/2015 TECHNIQUE: Abdomen and pelvis were scanned utilizing a multidetector helical scanner from the lung base to the pubic symphysis without administration of IV contrast. Coronal and sagittal reformations were obtained. IV CONTRAST: None ORAL CONTRAST: Gastrografin COMPLICATIONS: None RADIATION DOSE: Total DLP: 406 mGy*cm Dose modulation, iterative reconstruction, and/or weight based adjustment of the mA/kV was utilized to reduce the radiation dose to as low as reasonably achievable. FINDINGS: LOWER THORAX: Mild bibasilar subsegmental atelectasis. No focal lung base consolidation. HEPATOBILIARY: No focal liver lesion. Status post cholecystectomy. SPLEEN: No splenomegaly. PANCREAS: No focal masses or ductal dilatation. ADRENALS: No adrenal nodules. KIDNEYS/URETERS: 3 mm right upper pole nonobstructive renal calculus. No hydronephrosis or hydroureter. No solid renal mass lesion. PELVIC ORGANS/BLADDER: Hysterectomy. Distended bladder. PERITONEUM / RETROPERITONEUM: No free air or fluid. LYMPH NODES: No lymphadenopathy. VESSELS: Diffuse atherosclerotic calcifications of the nonaneurysmal abdominal aorta and major branches. GI TRACT: Moderate hiatal hernia with residual oral contrast material in the intrathoracic por tion of the stomach. Findings of prior fundoplication. No abnormal bowel thickening. No bowel obstruction. Diverticulosis without CT evidence of diverticulitis. Increased stool burden throughout the colon, compatible with constipation. BONES AND SOFT TISSUES: No acute osseous injury. Mild diffuse osteopenia. Grade 1 anterolisthesis at L4-5. Multilevel degenerative changes of the visualized spine. Degenerative changes of both hip joints. IMPRESSION: Moderate hiatal hernia with pooling of residual oral contrast material in the intrathoracic portion of the stomach. Findings of prior fundoplication. Diverticulosis without CT evidence of diverticulitis. Increased stool burden throughout the colon, compatible with constipation. 3 mm right upper pole nonobstructive renal calculus. No hydronephrosis. Signed by: Emily Zarate MD on 12/25/2019 8:38 AM Dictated By: EMILY ZARATE MD 7 Transcribed By: SARAH BADILLO on 12/25/19837 COPY TO: YAMILA SANDRA MD CHEST SINGLE (PORTABLE) 2019-12-25 07:02:00 [place] [address] Patient Name: ROXANNA PENNY MR #: [id number] : 1940 Age/Sex: 79/F Req #: [id number] Adm Physician: Ordered by: YAMILA SANDRA MD Report #: [id number] Location: ER Room/Bed: Procedure: [id number] DX/CHEST SINGLE (PORTABLE) Exam Date: 12/25/19 Exam Time: 644 REPORT STATUS: Signed EXAMINATION: CHEST SINGLE (PORTABLE) INDICATION: ABD PAIN, N/V [id number] COMPARISON: 11/08/2019 FINDINGS: AP view TUBES and LINES: None. LUNGS: Lungs are well inflated. Prominent facial lung markings. PLEURA: No significant pleural effusion or pneumothorax. HEART AND MEDIASTINUM: The cardiac silhouette is enlarged. BONES AND SOFT TISSUES: No acute osseous lesion. Soft tissues are unremarkable. UPPER ABDOMEN: No free air under the diaphragm. IMPRESSION: Prominent interstitial lung markings, could be chronic or represent mild interstitial edema. Underlying pneumonia in the lower lung jules cannot be excluded in the appropriate clinical context. Signed by: Dr. Valentino Contreras MD on 12/25/2019 7:04 AM Dictated By: VALENTINO CONTRERAS MD 3 Transcribed By: MARY KAY on 12/25/19703 COPY TO: YAMILA SANDRA MD Serum or plasma sodium measurement (moles/volume) 2019-12-25 06:57:00 Test Item Sodium Level (test code = 2951-2) 138 136-145 [facility] potassium [facility] (moles/volume)2019-12-25 06:57:00* Test Item Value Reference Range Interpretation Comments Potassium Level (test code = 2823-3) 3.9 3.5-5.1 [facility] chloride measurement (moles/volume)2019-12-25 06:57:00* Test Item Value Reference Range Interpretation Comments Chloride Level (test code = 2075-0) 99 98-107 [facility] plasma carbon dioxide, total measurement (moles/volume)2019-12-25 06:57:00* Test Item Value Reference Range Interpretation Comments Carbon Dioxide Level (test code = 2028-9) 28 22-29 [facility] plasma anion [id number] 06:57:00* Test Item Value Reference Range Interpretation Comments Anion Gap (test code = 21159-0) 14.9 8-16 [facility] urea nitrogen measurement (mass/volume)2019-12-25 06:57:00* Test Item Value Reference Range Interpretation Comments Blood Urea Nitrogen (test code = 3094-0) 12 7-26 [facility] plasma creatinine measurement (mass/volume)2019-12-25 06:57:00* Test Item Value Reference Range Interpretation Comments Creatinine (test code = 2160-0) 0.72 0.57-1.11 [facility] plasma urea nitrogen/creatinine mass [id number] 06:57:00* Test Item Value Reference Range Interpretation Comments BUN/Creatinine Ratio (test code = 3097-3) 17 6-25 [facility] (GFR) [id number] 06:57:00* Test Item Value Reference Range Interpretation Comments Estimat Glomerular Filtration Rate (test code = 845742325) > 60 >60 Ranges were taken from the National Kidney Disease Education Program and the [facility] Kidney Foundation literature.Reference ranges:60 or greater: Eegcul84-66 ( for 3 consecutive months): Chronic kidney disease 15 or less: Kidney failureSeymour HospitalGlucose [id number] 06:57:00* Test Item Value Reference Range Interpretation Comments Glucose Level (test code = KNW8151) 139 74-118 [facility] plasma calcium measurement (mass/volume)2019-12-25 06:57:00* Test Item Value Reference Range Interpretation Comments Calcium Level (test code = 63341-7) 8.3 8.4-10.2 [facility] plasma magnesium measurement (mass/volume)2019-12-25 06:57:00* Test Item Value Reference Range Interpretation Comments Magnesium Level (test code = 56353-9) 1.9 1.3-2.1 [facility] plasma total bilirubin measurement (mass/volume)2019-12-25 06:57:00* Test Item Value Reference Range Interpretation Comments Total Bilirubin (test code = 1975-2) 0.4 0.2-1.2 [facility]or[facility] procedure less than one hour [id number] 06:57:00* Test Item Value Reference Range Interpretation Comments Aspartate Amino Transf (AST/SGOT) (test code = Aspartate Amino Transf (AST/SGOT)) 23 5-34 [facility] plasma alanine aminotransferase measurement (enzymatic activity/volume)2019-12-25 06:57:00* Test Item Value Reference Range Interpretation Comments Alanine Aminotransferase (ALT/SGPT) (test code = 1742-6) 17 0-55 [facility] plasma protein measurement (mass/volume)2019-12-25 06:57:00* Test Item Value Reference Range Interpretation Comments Total Protein (test code = 2885-2) 6.8 6.5-8.1 [facility] albumin measurement (mass/volume)2019-12-25 06:57:00* Test Item Value Reference Range Interpretation Comments Albumin (test code = 1751-7) 4.2 3.5-5.0 [facility] globulin measurement (mass/volume) 2019-12-25 06:57:00* Test Item Value Reference Range Interpretation Comments Globulin (test code = 98028-0) 2.6 2.3-3.5 [facility] plasma albumin/globulin mass [id number] 06:57:00* Test Item Value Reference Range Interpretation Comments Albumin/Globulin Ratio (test code = 1759-0) 1.6 0.8-2.0 [facility] plasma alkaline phosphatase measurement (enzymatic activity/volume)2019-12-25 06:57:00* Test Item Value Reference Range Interpretation Comments Alkaline Phosphatase (test code = 6768-6) 70 40-150 [facility] plasma creatine kinase measurement (enzymatic activity/volume)2019-12-25 06:57:00* Test Item Value Reference Range Interpretation Comments Creatine Kinase (test code = 2157-6) 73 29-168 [facility] plasma creatine kinase MB measurement (mass/volume)2019-12-25 06:57:00* Test Item Value Reference Range Interpretation Comments Creatine Kinase MB (test code = 67987-1) 1.50 0-5.0 [facility] HospitalTroponin I measurement by highly sensitive enzyme [id number] 06:57:00* Test Item Value Reference Range Interpretation Comments Troponin I (test code = 43547-8) 0.032 0-0.300 [facility] plasma amylase measurement (enzymatic activity/volume)2019-12-25 06:57:00* Test Item Value Reference Range Interpretation Comments Amylase Level (test code = 1798-8) 47 25-125 [facility] plasma lipase measurement (enzymatic activity/volume)2019-12-25 06:57:00* Test Item Value Reference Range Interpretation Comments Lipase (test code = 3040-3) 43 8-78 [facility] leukocytes automated count (number/volume)2019-12-25 06:18:00* Test Item Value Reference Range Interpretation Comments White Blood Count (test code = 6690-2) 10.23 4.8-10.8 [facility] erythrocytes automated count (number/volume)2019-12-25 06:18:00* Test Item Value Reference Range Interpretation Comments Red Blood Count (test code = 789-8) 3.83 3.6-5.1 [facility] hemoglobin measurement (moles/volume)2019-12-25 06:18:00* Test Item Value Reference Range Interpretation Comments Hemoglobin (test code = 30319-5) 12.5 12.0-16.0 [facility] HospitalAutomated blood hematocrit (volume fraction)2019-12-25 06:18:00* Test Item Value Reference Range Interpretation Comments Hematocrit (test code = 4544-3) 36.9 34.2-44.1 [facility]Automated erythrocyte mean corpuscular hhwatc8146-81-16 06:18:00* Test Item Value Reference Range Interpretation Comments Mean Corpuscular Volume (test code = 787-2) 96.3 81-99 [facility]Automated erythrocyte mean corpuscular hemoglobin (mass per erythrocyte)2019-12-25 06:18:00* Test Item Value Reference Range Interpretation Comments Mean Corpuscular Hemoglobin (test code = 785-6) 32.6 28-32 [facility]Automated erythrocyte mean corpuscular hemoglobin concentration measurement (mass/volume)2019-12-25 06:18:00* Test Item Value Reference Range Interpretation Comments Mean Corpuscular Hemoglobin Concent (test code = 786-4) 33.9 31-35 [facility] HospitalRDW UgvLh-Pes9843-01-23 06:18:00* Test Item Value Reference Range Interpretation Comments Red Cell Distribution Width (test code = 34103-8) 11.9 11.7 -14.4 [facility]Automated blood platelet count (count/volume)2019-12-25 06:18:00* Test Item Value Reference Range Interpretation Comments Platelet Count (test code = 777-3) 232 140-360 [facility] HospitalAutomated blood segmented neutrophil count as percentage of total trpvzcgxij4669-15-08 06:18:00* Test Item Value Reference Range Interpretation Comments Neutrophils (%) (Auto) (test code = 33957-9) 86.1 38.7-80.0 [facility] HospitalAutomated blood lymphocyte count as percentage ot total expkxkoeix2978-27-72 06:18:00* Test Item Value Reference Range Interpretation Comments Lymphocytes (%) (Auto) (test code = 736-9) 7.8 18.0-39.1 [facility] HospitalAutomated blood monocyte count as percentage of total dtyhvscrvo7533-49-75 06:18:00* Test Item Value Reference Range Interpretation Comments Monocytes (%) (Auto) (test code = 5905-5) 4.7 4.4-11.3 [facility] HospitalAutomated blood eosinophil count as percentage of total kjdihkujon3657-58-43 06:18:00* Test Item Value Reference Range Interpretation Comments Eosinophils (%) (Auto) (test code = 713-8) 0.5 0.0-6.0 [facility] HospitalAutomated blood basophil count as percentage of total afhgntksyh7850-28-62 06:18:00* Test Item Value Reference Range Interpretation Comments Basophils (%) (Auto) (test code = 706-2) 0.5 0.0-1.0 [facility] HospitalFluoroscopic procedure less than one hour ucuyxbys0194-92-18 06:18:00* Test Item Value Reference Range Interpretation Comments IM GRANULOCYTES % (test code = IM GRANULOCYTES %) 0.4 0.0- 1.0 [facility]Automated blood neutrophil count 2019-12-25 06:18:00* Test Item Value Reference Range Interpretation Comments Neutrophils # (Auto) (test code = 751-8) 8.8 2.1-6.9 [facility] HospitalBlood lymphocytes count (number/volume) 2019-12-25 06:18:00* Test Item Value Reference Range Interpretation Comments Lymphocytes # (Auto) (test code = 37913-5) 0.8 1.0-3.2 [facility] HospitalBlood monocytes automated count (number/volume)2019-12-25 06:18:00* Test Item Value Reference Range Interpretation Comments Monocytes # (Auto) (test code = 742-7) 0.5 0.2-0.8 [facility] HospitalAutomated blood eosinophil count 2019-12-25 06:18:00* Test Item Value Reference Range Interpretation Comments Eosinophils # (Auto) (test code = 711-2) 0.1 0.0-0.4 [facility] HospitalAutomated blood basophil count (count/volume)2019-12-25 06:18:00* Test Item Value Reference Range Interpretation Comments Basophils # (Auto) (test code = 704-7) 0.1 0.0-0.1 [facility] HospitalFluoroscopic procedure less than one hour oknoqmhh4670-93-31 06:18:00* Test Item Value Reference Range Interpretation Comments Absolute Immature Granulocyte (auto (prosper t code = Absolute Immature Granulocyte (auto) 0.04 0-0.1 [facility] HospitalProthrombin time (PT) in platelet poor plasma by coagulation osvgc2270-70-76 06:18:00* Test Item Value Reference Range Interpretation Comments Prothrombin Time (test code = 5902-2) 12.7 11.9-14.5 [facility] HospitalINR in Platelet poor plasma by Coagulation jrdol5932-73-56 06:18:00* Test Item Value Reference Range Interpretation Comments Prothromb Time International Ratio (test code = 6301-6) 0.91 Oral Anticoagulant Therapy INR Values:1. Low Intensity Therapy 1.5 - 2.02 . Moderate Intensity Therapy 2.0 - 3.03. High Intensity Therapy(1) 2.5 - 3. 54. High Intensity Therapy(2) 3.0 - 4.05. Panic Value INR > 5.0 [facility] HospitalActivated partial thromboplastin time (aPTT) in platelet poor plasma by coagulation vjcug0745-02-26 06:18:00* Test Item Value Reference Range Interpretation Comments Activated Partial Thromboplast Time (test code = 90867-7) 33.2 23.8-35.5 [facility] HospitalUrine color cheteduwaoxys3470-92-63 06:18:00* Test Item Value Reference Range Interpretation Comments Urine Color (test code = 5778-6) YELLOW YELLOW [facility] HospitalUrine iyqfbkv9285-34-80 06:18:00* Test Item Value Reference Range Interpretation Comments Urine Clarity (test code = 15167-1) CLEAR CLEAR [facility] gravity of Urine by Test strip 2019-12-25 06:18:00* Test Item Value Reference Range Interpretation Comments Urine Specific [place] (test code = 5811-5) 1.020 1.010-1.02 5 [facility] HospitalUrine pH measurement by automated test ixcuj7826-63-90 06:18:00* Test Item Value Reference Range Interpretation Comments Urine pH (test code = 27236-0) 7.5 5-7 [facility] HospitalUrine leukocyte esterase detection by rfgnzjwo0538-41-11 06:18:00* Test Item Value Reference Range Interpretation Comments Urine Leukocyte Esterase (test code = 5799-2) TRACE NEGATIVE [facility] HospitalUrine nitrite lhaelqxub4222-19-34 06:18:00* Test Item Value Reference Range Interpretation Comments Urine Nitrite (test code = 56794-6) NEGATIVE NEGATIVE [facility] HospitalUrine protein measurement by test strip (mass/volume)2019-12-25 06:18:00* Test Item Value Reference Range Interpretation Comments Urine Protein (test code = 5804-0) 1+ NEGATIVE [facility] HospitalUrine glucose xblykoejo5183-38-68 06:18:00* Test Item Value Reference Range Interpretation Comments Urine Glucose (UA) (test code = 2349-9) NEGATIVE NEGATIVE [facility] HospitalUrine ketones detection by automated test ureiv6789-24-40 06:18:00* Test Item Value Reference Range Interpretation Comments Urine Ketones (test code = 36672-6) NEGATIVE NEGATIVE [facility] HospitalUrine urobilinogen measurement by test strip (mass/volume)2019-12-25 06:18:00* Test Item Value Reference Range Interpretation Comments Urine Urobilinogen (test code = 53314-6) 0.2 0.2-1 [facility] HospitalUrine total bilirubin measurement (mass/volume)2019-12-25 06:18:00* Test Item Value Reference Range Interpretation Comments Urine Bilirubin (test code = 1978-6) NEGATIVE NEGATIVE [facility] HospitalUrine erythrocytes pgkkydzjp6641-19-19 06:18:00* Test Item Value Reference Range Interpretation Comments Urine Blood (test code = 37128-0) TRACE NEGATIVE [facility] HospitalAutomated urine sediment leukocyte count by microscopy (number/high power field)2019-12-25 06:18:00* Test Item Value Reference Range Interpretation Comments Urine WBC (test code = 5821-4) 0-5 0-5 [facility] HospitalErythrocytes detection in urine sediment by light lalegpihgt3484-28-90 06:18:00* Test Item Value Reference Range Interpretation Comments Urine RBC (test code = 85894-6) 6-10 0-5 [facility] HospitalBacteria detection in urine sediment by light zzojghzunv1083-51-03 06:18:00* Test Item Value Reference Range Interpretation Comments Urine Bacteria (test code = 02275-4) FEW NONE [facility] HospitalEpithelial cells detection in urine sediment by light ewqpeasrks4454-14-32 06:18:00* Test Item Value Reference Range Interpretation Comments Urine Epithelial Cells (test code = 01787-7) RARE NONE [facility] Hospitalerum or plasma sodium measurement (moles/volume)2019-11-08 13:25:00* Test Item Value Reference Range Interpretation Comments Sodium Level (test code = 2951-2) 142 136-145 [facility] Hospitalerum or plasma potassium measurement (moles/volume)2019-11-08 13:25:00* Test Item Value Reference Range Interpretation Comments Potassium Level (test code = 2823-3) 3.2 3.5-5.1 [facility] Hospitalerum or plasma chloride measurement (moles/volume)2019-11-08 13:25:00* Test Item Value Reference Range Interpretation Comments Chloride Level (test code = 2075-0) 107 98-107 [facility] Hospitalerum or plasma carbon dioxide, total measurement (moles/volume)2019-11-08 13:25:00* Test Item Value Reference Range Interpretation Comments Carbon Dioxide Level (test code = 2028-9) 27 22-29 [facility] Hospitalerum or plasma anion wjp6232-10-98 13:25:00* Test Item Value Reference Range Interpretation Comments Anion Gap (test code = 75096-1) 11.2 8-16 [facility] Hospitalerum or plasma urea nitrogen measurement (mass/volume)2019-11-08 13:25:00* Test Item Value Reference Range Interpretation Comments Blood Urea Nitrogen (test code = 3094-0) 6 7-26 [facility] Hospitalerum or plasma creatinine measurement (mass/volume)2019-11-08 13:25:00* Test Item Value Reference Range Interpretation Comments Creatinine (test code = 2160-0) 0.75 0.57-1.11 [facility] Hospitalerum or plasma urea nitrogen/creatinine mass powpm8242-71-33 13:25:00* Test Item Value Reference Range Interpretation Comments BUN/Creatinine Ratio (test code = 3097-3) 8 6-25 [facility] HospitalEstimated glomerular filtration rate (GFR) gdwlqhmtfltit8197-53-73 13:25:00* Test Item Value Reference Range Interpretation Comments Estimat Glomerular Filtration Rate (test code = 544567780) > 60 >60 Ranges were taken from the National Kidney Disease Education Program and the [facility]ney Foundation literature.Reference ranges:60 or greater: Efmxos12-15 ( for 3 consecutive months): Chronic kidney disease 15 or less: Kidney failureSeymour HospitalGlucose ddeaodjapig1262-86-71 13:25:00* Test Item Value Reference Range Interpretation Comments Glucose Level (test code = HMN4337) 240 74-118 [facility] Hospitalerum or plasma calcium measurement (mass/volume)2019-11-08 13:25:00* Test Item Value Reference Range Interpretation Comments Calcium Level (test code = 80403-9) 8.9 8.4-10.2 [facility]2019-11-08 11:39:00 [facility] [address] [address] Patient Name: ROXANNA PENNY MR #: [id number] : 1940 Age/Sex: 79/F Req #: [id number] Adm Physician: Ordered by: INESSA MITTAL DO Report #: [id number] Location: ER Room/Bed: Procedure: [id number] DX/CHEST SINGLE (PORTABLE) Exam Date: 11/08/19 Exam Time: 112 2 REPORT STATUS: Signed EXAMINAT ION: CHEST SINGLE (PORTABLE) INDICATION: Hypertension, headache C OMPARISON: None FINDINGS: LINES/TUBES:None LUNGS:The lungs a re moderately inflated. There is perihilar fullness and indistinctness of the pulmonary vasculature. PLEURA:No pleural effusion or pneumothorax. MED IASTINUM:Cardiomediastinal silhouette is stably enlarged. Atherosclerotic calc ifications of the thoracic aorta. BONES/SOFT TISSUES:No acute osseous injur y. ABDOMEN:No free air under the diaphragm. IMPRESSION: Cardiome rachael and pulmonary interstitial edema. Signed by: Emily Zarate MD on 0 11:41 AM Dictated By: EMILY ZARATE MD 1141 Transcribed By: MARY KAY on 11/08/19 1141 COPY TO: INESSA MITTAL DO Blood leukocytes automated count (number/volume) 2019-11-08 10:44:00* Test Item Value Reference Range Interpretation Comments White Blood Count (test code = 6690-2) 8.32 4.8-10.8 [facility] HospitalBlood erythrocytes automated count (number/volume)2019-11-08 10:44:00* Test Item Value Reference Range Interpretation Comments Red Blood Count (test code = 789-8) 3.83 3.6-5.1 [facility] hemoglobin measurement (moles/volume)2019-11-08 10:44:00* Test Item Value Reference Range Interpretation Comments Hemoglobin (test code = 78036-9) 12.3 12.0-16.0 [facility] HospitalAutomated blood hematocrit (volume fraction)2019-11-08 10:44:00* Test Item Value Reference Range Interpretation Comments Hematocrit (test code = 4544-3) 37.8 34.2-44.1 [facility] HospitalAutomated erythrocyte mean corpuscular ommfla8926-94-29 10:44:00* Test Item Value Reference Range Interpretation Comments Mean Corpuscular Volume (test code = 787-2) 98.7 81-99 [facility] HospitalAutomated erythrocyte mean corpuscular hemoglobin (mass per erythrocyte)2019-11-08 10:44:00* Test Item Value Reference Range Interpretation Comments Mean Corpuscular Hemoglobin (test code = 785-6) 32.1 28-32 [facility] HospitalAutomated erythrocyte mean corpuscular hemoglobin concentration measurement (mass/volume)2019-11-08 10:44:00* Test Item Value Reference Range Interpretation Comments Mean Corpuscular Hemoglobin Concent (test code = 786-4) 32.5 31-35 [facility] HospitalRDW BahOc-Zaa3127-78-07 10:44:00* Test Item Value Reference Range Interpretation Comments Red Cell Distribution Width (test code = 05907-7) 12.4 11.7 -14.4 [facility] HospitalAutomated blood platelet count (count/volume)2019-11-08 10:44:00* Test Item Value Reference Range Interpretation Comments Platelet Count (test code = 777-3) 219 140-360 [facility] neutrophil count as percentage of total hrikctdwtn8747-92-45 10:44:00* Test Item Value Reference Range Interpretation Comments Neutrophils (%) (Auto) (test code = 47181-4) 72.2 38.7-80.0 [facility] HospitalAutomated blood lymphocyte count as percentage ot total uwltsalemv1788-67-06 10:44:00* Test Item Value Reference Range Interpretation Comments Lymphocytes (%) (Auto) (test code = 736-9) 16.3 18.0-39.1 [facility] HospitalAutomated blood monocyte count as percentage of total xffkjsinmz6962-46-58 10:44:00* Test Item Value Reference Range Interpretation Comments Monocytes (%) (Auto) (test code = 5905-5) 8.1 4.4-11.3 [facility] HospitalAutomated blood eosinophil count as percentage of total umejcnfbcy3751-10-15 10:44:00* Test Item Value Reference Range Interpretation Comments Eosinophils (%) (Auto) (test code = 713-8) 2.5 0.0-6.0 [facility] HospitalAutomated blood basophil count as percentage of total yqwmsdseix4556-34-99 10:44:00* Test Item Value Reference Range Interpretation Comments Basophils (%) (Auto) (test code = 706-2) 0.7 0.0-1.0 [facility] HospitalFluoroscopic procedure less than one hour fovkpmfg1763-48-67 10:44:00* Test Item Value Reference Range Interpretation Comments IM GRANULOCYTES % (test code = IM GRANULOCYTES %) 0.2 0.0- 1.0 [facility] HospitalAutomated blood neutrophil count 2019-11-08 10:44:00* Test Item Value Reference Range Interpretation Comments Neutrophils # (Auto) (test code = 751-8) 6.0 2.1-6.9 [facility] HospitalBlood lymphocytes count (number/volume) 2019-11-08 10:44:00* Test Item Value Reference Range Interpretation Comments Lymphocytes # (Auto) (test code = 94842-8) 1.4 1.0-3.2 [facility] HospitalBlood monocytes automated count (number/volume)2019-11-08 10:44:00* Test Item Value Reference Range Interpretation Comments Monocytes # (Auto) (test code = 742-7) 0.7 0.2-0.8 [facility]Automated blood eosinophil count 2019-11-08 10:44:00* Test Item Value Reference Range Interpretation Comments Eosinophils # (Auto) (test code = 711-2) 0.2 0.0-0.4 [facility] HospitalAutomated blood basophil count (count/volume)2019-11-08 10:44:00* Test Item Value Reference Range Interpretation Comments Basophils # (Auto) (test code = 704-7) 0.1 0.0-0.1 [facility] HospitalFluoroscopic procedure less than one hour tmyeafwi7339-95-40 10:44:00* Test Item Value Reference Range Interpretation Comments Absolute Immature Granulocyte (auto (prosper t code = Absolute Immature Granulocyte (auto) 0.02 0-0.1 [facility]er[facility] or plasma total bilirubin measurement (mass/volume)2019-11-08 10:44:00* Test Item Value Reference Range Interpretation Comments Total Bilirubin (test code = 1975-2) 0.4 0.2-1.2 [facility] HospitalFluoroscopic procedure less than one hour ipkvrxms7551-95-04 10:44:00* Test Item Value Reference Range Interpretation Comments Aspartate Amino Transf (AST/SGOT) (test code = Aspartate Amino Transf (AST/SGOT)) 24 5-34 [facility] Hospitalerum or plasma alanine aminotransferase measurement (enzymatic activity/volume)2019-11-08 10:44:00* Test Item Value Reference Range Interpretation Comments Alanine Aminotransferase (ALT/SGPT) (test code = 1742-6) 20 0-55 [facility] Hospitalerum or plasma protein measurement (mass/volume)2019-11-08 10:44:00* Test Item Value Reference Range Interpretation Comments Total Protein (test code = 2885-2) 7.6 6.5-8.1 [facility]er[facility] or plasma albumin measurement (mass/volume)2019-11-08 10:44:00* Test Item Value Reference Range Interpretation Comments Albumin (test code = 1751-7) 4.3 3.5-5.0 [facility] HospitalPlasma globulin measurement (mass/volume) 2019-11-08 10:44:00* Test Item Value Reference Range Interpretation Comments Globulin (test code = 48210-0) 3.3 2.3-3.5 [facility]erum or plasma albumin/globulin mass ydgja1423-32-02 10:44:00* Test Item Value Reference Range Interpretation Comments Albumin/Globulin Ratio (test code = 1759-0) 1.3 0.8-2.0 [facility]erum or plasma alkaline phosphatase measurement (enzymatic activity/volume)2019-11-08 10:44:00* Test Item Value Reference Range Interpretation Comments Alkaline Phosphatase (test code = 6768-6) 71 40-150 [facility] Hospitalerum or plasma triglyceride measurement (mass/volume)2019-11-08 10:44:00* Test Item Value Reference Range Interpretation Comments Triglycerides Level (test code = 2571-8) 82 0-149 [facility]erum or plasma cholesterol measurement (mass/volume)2019-11-08 10:44:00* Test Item Value Reference Range Interpretation Comments Cholesterol Level (test code = 2093-3) 94 0-199 Less than 200 mg/dL Low Gsoj089 - 239 mg/dL Borderline Lqxt764 m g/dl and greater High Risk [facility]er[facility] or plasma cholesterol in LDL measurement (mass/volume) 2019-11-08 10:44:00* Test Item Value Reference Range Interpretation Comments LDL Cholesterol (test code = 2089-1) 45 60-130 [facility]erum or plasma cholesterol in HDL measurement (mass/volume)2019-11-08 10:44:00* Test Item Value Reference Range Interpretation Comments HDL Cholesterol (test code = 2085-9) 33 40-60 [facility]erum or plasma total cholesterol/cholesterol in HDL mass eexbc2078-24-46 10:44:00* Test Item Value Reference Range Interpretation Comments Cholesterol/HDL Ratio (test code = 9830-1) 2.8 3.0-3.6 [facility]er[facility] or plasma creatine kinase measurement (enzymatic activity/volume)2019-11-08 10:44:00* Test Item Value Reference Range Interpretation Comments Creatine Kinase (test code = 2157-6) 77 29-168 [facility] Hospitalerum or plasma creatine kinase MB measurement (mass/volume)2019-11-08 10:44:00* Test Item Value Reference Range Interpretation Comments Creatine Kinase MB (test code = 58107-5) 1.20 0-5.0 [facility] HospitalTroponin I measurement by highly sensitive enzyme ahnkwfjalmq3920-73-91 10:44:00* Test Item Value Reference Range Interpretation Comments Troponin I (test code = 69804-4) < 0.001 0-0.300 [facility]er[facility] or plasma triglyceride measurement (mass/volume)2019-11-08 10:44:00* Test Item Value Reference Range Interpretation Comments Triglycerides Level (test code = 2571-8) 82 0-149 [facility] Hospitalerum or plasma cholesterol measurement (mass/volume)2019-11-08 10:44:00* Test Item Value Reference Range Interpretation Comments Cholesterol Level (test code = 2093-3) 94 0-199 Less than 200 mg/dL Low Bunv538 - 239 mg/dL Borderline Hzoz552 m g/dl and greater High Risk [facility] Hospitalerum or plasma cholesterol in LDL measurement (mass/volume) 2019-11-08 10:44:00* Test Item Value Reference Range Interpretation Comments LDL Cholesterol (test code = 2089-1) 45 60-130 [facility] Hospitalerum or plasma cholesterol in HDL measurement (mass/volume)2019-11-08 10:44:00* Test Item Value Reference Range Interpretation Comments HDL Cholesterol (test code = 2085-9) 33 40-60 [facility]erum or plasma total cholesterol/cholesterol in HDL mass vfumf9140-17-11 10:44:00* Test Item Value Reference Range Interpretation Comments Cholesterol/HDL Ratio (test code = 9830-1) 2.8 3.0-3.6 [facility] HospitalBASIC METABOLIC ODENE9241-36-14 12:09:00 * Test Item Value Reference Range Interpretation [...] CA) 8.8 mg/dL 8.5-10.1 N BASIC METABOLIC EYDXG3356-56-79 12:04:00* Test Item Value Reference Range Interpretation [...] code = CA) mg/dL 8.5-10.1 CBC W/O XLJK4460-81-89 11:46:00* Test Item Value Reference Range Interpretation [...] MPV) 10.8 fL 6.7-11.0 N CBC W/O TGYN2156-37-31 11:45:00* Test Item Value Reference Range Interpretation [...] MPV) fL 6.7-11.0 - XR UGI DBL KLSDERAC0965-50-43 13:56:00 FAX: Anuel Rivers MD [phone] [place]: [address]: REG Name: GEOFF MCNULTY [facility] : [birth year] Age/S: 79/F [address] Unit #: [id number] Loc: [place] [address] Phys: Diana Lees MD Acct: [id number] Dis Date: Status: REG CLI PHONE #: [phone] Exam Date: 09/18/2019 1050 FAX #: [phone] Reason: VOMITING EXAMS: CPT CODE: [id number] XR UGI DBL CONTRAST [id number] REASON FOR EXAM: VOMITING Exam Order Date: 09/18/2019 12:00 AM Ordering: Diana Lees MD Attending:Diana Lees MD [facility] CEDURE: Upper GI examination FINDINGS: The patient was brought to radiology and placed in the right lateral decubitus position on the table. The oil distributor radiograph shows scattered small bowel gas without [...] signed by: Miguel Hatch M.D. CC: Anuel Rivers MD Technologist: SAIDA LANTIGUA RT(R) Trnscrd Date/Time/By: 09/18/2019 (5386) : By: Alina L Orig Print D/T: S: 09/18/2019 (4087) PAGE 1 Signed Report TROPONIN-I 2019-07-25 13:59:00* Test Item Value Reference Range Interpretation Comments TROPONIN-I (test code = TROPI) 0.098 ng/mL 0-0.045 HH Results called to [id number] by AVELINAKPNoam 07/25/19 1359Critical results verified and read back [...] This LDL result is a direct measurement.========= UCCZVJZM-Z5477-11-23 08:35:00* Test Item Value Reference Range Interpretation Comments TROPONIN-I (test code = TROPI) 0.179 ng/mL 0-0.045 HH Results called to [id number] by [email or web address] 07/25/19 0834Critical results verified and read back by Nurse? YES COMMENTS TO MARKETING REPORTING ANALYST: COLLECT 3 HOURS AFTER PREVIOUS ZZRUHTSUAOOFCW-Y6439-82-23 05:37:00* Test Item Value Reference Range Interpretation Comments TROPONIN-I (test code = TROPI) 0.187 ng/mL 0-0.045 HH Results called to [id number] by V.[email or web address].[email or web address] 07/25/19 0536Critical results verified and read back by Nurse? Y COMMENTS TO MARKETING REPORTING ANALYST: COLLECT 3 HOURS AFTER PREVIOUS SAMPLE- CTA VHUWV0714-07-52 01:41:00 Name: GEOFF PENNY [facility] : 1940 Age/S: 79 / F [address] [facility] Unit #: [id number] Loc: [place] [address] Phys: Tejas Duran MD Acct: [id number] Dis Date: Status: ADM IN PHONE #: [phone] Exam Date: 07/24/20195 FAX #: [phone] Reason: chest pain shortness of breath EXAMS: CPT CODE: [id number] CTA CHEST 43005 EXAM: -CTA Chest , CT ABD PELVIS [...] Atherosclerosis. Hiatal hernia. PAGE 1 Signed Report (C ONTINUED) Name: GEOFF PENNY [facility] : 1940 Age/S: 79 / F [address] [facility]: [id number] Loc: [place] [address] Phys: Tejas Duran MD Acct: [id number] Dis Date: Status: ADM IN PHONE #: [phone] Exam Date: 07/24/20192214 FAX #: [phone] Reason: chest pain shortness of breath E XAMS: CPT CODE: [id number] CTA CHEST 26086 <Continued> at 0141 Reported and signed by: Titi Andrews MD CC: Tejas Duran MD Te chnologist:Nannette Muro RT(R); ESTEVAN Mcgovern CTDI: DLP: Trnscb Date/ Time: 07/25/2019 (014) [email or web address] Orig Print D/T: S: 07/03 (0144) PAGE 2 Signed Report - CT ABD PELVIS W/MLUH4386-77-49 01:12:00 Name: GEOFF PENNY [facility] : 1940 Age/S: 79 / F [address] [facility] Unit #: [id number] Loc: [place] [address] Phys: Tejas Duran MD Acct: [id number] Dis Date: Status: ADM IN PHONE #: [phone] Exam Date: 07/24/20192214 FAX #: [phone] Reason: abd pain h/o aneurysm Report Has Been Amended EXAMS: CPT CODE: [id number] CT ABD PELVIS W/CONT 03846 Addendum - 07/25/2019 SIGNED 07/25/2019 ADDENDUM: [id number] CT/CTABPLW These findings were discussed with Dr. Velásquez in ED at 10:50 PM. at 0112 Reported and signed by: Titi Andrews MD Transcribed: 07/25/2019 (0112) [email or web address] Report EXAM: -CTA Chest , CT ABD [...] evidence of pulmonary embolism. There is no evidenc e of aortic aneurysm or dissection. 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 Calcific plaques in aorta and [...] 1 Signed Report (CONTINUED) Name: GEOFF PENNY [facility] : 1940 Age/S: 79 / F [address] Unit #: [id number] Loc: [place] [address] Phys: Tejas Duran MD Acct: [id number] Dis Date: Status: ADM IN PHONE #: [phone] Exam Date: 07/24/2019 221 5 FAX #: [phone] Reason: abd pain h/o aneurysm Report Has Been Amended EXAMS: CPT CODE: [id number] CT ABD PELVIS W/CONT 27261 <Continued> significant abnormalities. The appendix has a [...] Mcgovern CTDI: DLP: Trnscb Date/ Time: 07/24/2019 (717) [email or web address] Orig Print D/T: S: 07/03 (7029) PAGE 2 Signed Report - CT ABD PELVIS W/QKZG7380-49-55 22:59:00 Name: GEOFF PENNY [facility] : 1940 Age/S: 79 / F [address] [facility] Unit #: [id number] Loc: [place] [address] Phys: Tejas Duran MD Acct: [id number] Dis Date: Status: REG ER PHONE #: [phone] Exam Date: 07/24/20192214 FAX #: [phone] Reason: abd pain h/o aneurysm EXAMS: CPT CODE: [id number] CT ABD PELVIS W/CONT 52842 EXAM: -CTA Chest , CT ABD PELVIS W/CONT HISTORY: Pain. TECHNIQUE: Axial tomograms through the chest, abdomen and pelvis were obtained after intravenous contrast. Coronal and sagittal reformatted images are provided. This exam was performed according to our departmental dose-optimization program, which includes automated exposure control, adjustment of the mA and/or kV according to patient size and/or use of iterative reconstruction te chnilukas. COMPARISON: December 06, 2012. FINDINGS: There is [...] evidence of pulmonary embolus. No evidence of aorti c aneurysm. Atherosclerosis. Hiatal hernia. PAGE 1 Signed Report (CONTINUED) [facility] : 1940 Age/S: 79 / F [address] [facility] Unit #: [id number] Loc: [place] [address] Phys: Tejas Duran MD Acct: [id number] Dis Date: Status: REG ER PHONE #: [phone] Exa m Date: 07/24/20192214 FAX #: [phone] Reason: ab d pain h/o aneurysm EXAMS: CPT CODE: [id number] CT ABD PELVIS W/CONT 55798 <Continued> at 2259 Reported and signed by: Titi Andrews MD CC: Tejas Duran MD Technologist:Nannette Muro RT(R); ESTEVAN Mcgovern CTDI: DLP: Trnscb Date/Time: 07/24/2019 (2258) [email or web address] Orig Print D/T: S: 07/24/2019 (6713) PAGE 2 Signed Report B- TYPE NATRIURETIC [id number] 21:07:00* Test Item Value Reference Range Interpretation Comments B-TYPE NATRIURETIC PEPTIDE (test code = BNP) 49.53 pgram/mL 0-100 N BASIC METABOLIC HUMPE7988-02-68 21:01:00* Test Item Value Reference Range Interpretation [...] code = CA) 8.8 mg/dL 8.5-10.1 N WJHIDBMJ-H6793-32-22 21:01:00* Test Item Value Reference Range Interpretation Comments TROPONIN-I (test code = TROPI) <0.015 ng/mL 0-0.045 N BASIC METABOLIC KMBGG5075-68-73 20:50:00* Test Item Value Reference Range Interpretation [...] CALCIUM (test code = CA) mg/dL 8.5-10.1 EKZIONZV-A0631-59-22 20:50:00* Test Item Value Reference Range Interpretation Comments TROPONIN-I (test code = TROPI) ng/mL 0-0.045 CBC W/O [id number] 20:37:00* Test Item Value Reference Range Interpretation [...] code = MPV) fL 6.7-11.0 CBC W/O [id number] 20:37:00* Test Item Value Reference Range Interpretation [...] fL 6.7-11.0 N - XR CHEST 1 [id number] 20:21:00 FAX: Tejas Duran MD [phone] [place]: B St: REG Name: Liz WOODALLGEOFF ROXANNA [facility] : [birth year] Age/S: 79/F [address] [facility] Unit #: [id number] Loc: [place] [address] Phys: Tejas Duran MD Acct: [id number] Dis Date: Status: REG ER PHONE #: [phone] Exam Date: 07/24/20192014 FAX #: [phone] Reason: Shortness of Breath EXAMS: CPT CODE: [id number] XR CHEST 1 V 34836 REASON FOR EXAM: Shortness of Breath Exam Order Date: 07/24/2019 7:51 PM Orderi laura Mcgill: Tejas Duran MD PROCEDURE: - XR CHEST [...] limits. Retrocardiac lucency may represent the hiatal herni a seen on the prior CT scan Degenerative changes are seen througho ut the thoracic spine and are also present in the acromioclavicular joints . The visualized upper abdomen is within normal limits. IMPRESSION: Hyperinflation of the bilateral lungs may repr esent an air-trapping process. Parenchymal scarring in the bilat eral lung bases. Hiatal hernia. Location: [facility] A at 2020 Reported and signed by: Lamberto Ha MD CC: Tejas Duran MD Technologist: Nish Roldan a, RT(R; Rae Rush RT(R) Trnscrd Date/Time/By: 07/24/2019 (2020) : By: [email or web address] Orig Print D/T: S: 07/24/2019 (2024) P AGE 1 Signed Report Creatine Kinase [id number] 10:57:00* Test Item Value Reference Range Interpretation Comments Creatine Kinase MB (test code = 90894-1) 1.50 0-5.0 [facility] Q4458-63-95 10:57:00* Test Item Value Reference Range Interpretation Comments Troponin I (test code = SHB2626) 0.008 0-0.300 [facility] SINGLE (PORTABLE)2019-02-02 10:54:00 [facility] [address] [address] Patient Name: ROXANNA PENNY MR #: [id number] : 1940 Age/Sex: 79/F Req #: [id number] Adm Physician: Ordered by: YAMILA SANDRA MD Report #: [id number] Location: ER Room/Bed: Procedure: [id number] D X/CHEST SINGLE (PORTABLE) Exam Date: 02/02/19 [...] 1056 COPY TO: YAMILA SANDRA MD Sodium Pqlhk9546-38-57 10:52:00* Test Item Value Reference Range Interpretation Comments Sodium Level (test code = 2951-2) 137 136-145 [facility] Ayjgd7494-89-53 10:52:00* Test Item Value Reference Range Interpretation Comments Potassium Level (test code = 2823-3) 3.4 3.5-5.1 L [facility] HospitalChloride Xsedg6531-90-21 10:52:00* Test Item Value Reference Range Interpretation Comments Chloride Level (test code = 2075-0) 98 98-107 [facility] HospitalCarbon Dioxide Kaaaw7251-68-60 10:52:00* Test Item Value Reference Range Interpretation Comments Carbon Dioxide Level (test code = 2028-9) 30 22-29 H [facility] HospitalAnion Koy2172-41-83 10:52:00* Test Item Value Reference Range Interpretation Comments Anion Gap (test code = 25140-9) 12.4 8-16 [facility] HospitalBlood Urea Zpihmivk8844-99-60 10:52:00* Test Item Value Reference Range Interpretation Comments Blood Urea Nitrogen (test code = 3094-0) 12 7-26 [facility] HospitalCreatinine2019-11-02 10:52:00* Test Item Value Reference Range Interpretation Comments Creatinine (test code = 2160-0) 0.73 0.57-1.11 [facility] HospitalBUN/Creatinine Vyhhq5517-32-27 10:52:00* Test Item Value Reference Range Interpretation Comments BUN/Creatinine Ratio (test code = 3097-3) 16 6-25 [facility] HospitalEstimat Glomerular Filtration Rate 2019-02-02 10:52:00* Test Item Value Reference Range Interpretation Comments Estimat Glomerular Filtration Rate (test code = 800333766) > 60 >60 Ranges were taken from the National Kidney Disease Education Program and the [facility] [employer] literature.Reference ranges:60 or greater: Sfooki43-05 ( for 3 consecutive months): Chronic kidney disease 15 or less: Kidney failureSeymour HospitalGlucose Bkukp1768-53-80 10:52:00* Test Item Value Reference Range Interpretation Comments Glucose Level (test code = AFK0965) 97 74-118 [facility] HospitalCalcium Vfxze8066-60-78 10:52:00* Test Item Value Reference Range Interpretation Comments Calcium Level (test code = 41577-6) 9.5 8.4-10.2 [facility] HospitalMagnesium Tnwrr4863-40-59 10:52:00* Test Item Value Reference Range Interpretation Comments Magnesium Level (test code = 11603-1) 1.8 1.3-2.1 [facility] HospitalTotal Yhehtdqax9639-98-43 10:52:00* Test Item Value Reference Range Interpretation Comments Total Bilirubin (test code = 1975-2) 0.5 0.2-1.2 [facility] HospitalAspartate Amino Transf (AST/SGOT) 2019-02-02 10:52:00* Test Item Value Reference Range Interpretation Comments Aspartate Amino Transf (AST/SGOT) (test code = Aspartate Amino Transf (AST/SGOT)) 24 5-34 [facility] HospitalAlanine Aminotransferase (ALT/SGPT) 2019-02-02 10:52:00* Test Item Value Reference Range Interpretation Comments Alanine Aminotransferase (ALT/SGPT) (test code = 1742-6) 19 0-55 [facility] HospitalTotal Fxaqrfq4565-57-71 10:52:00* Test Item Value Reference Range Interpretation Comments Total Protein (test code = 2885-2) 7.4 6.5-8.1 [facility] HospitalAlbumin2019-11-02 10:52:00* Test Item Value Reference Range Interpretation Comments Albumin (test code = 1751-7) 4.2 3.5-5.0 [facility] HospitalGlobulin2019-11-02 10:52:00* Test Item Value Reference Range Interpretation Comments Globulin (test code = 44149-1) 3.2 2.3-3.5 [facility] HospitalAlbumin/Globulin Xvbwy6937-21-98 10:52:00 * Test Item Value Reference Range Interpretation Comments Albumin/Globulin Ratio (test code = 1759-0) 1.3 0.8-2.0 [facility] HospitalAlkaline Vgafprkqxkq8290-58-32 10:52:00* Test Item Value Reference Range Interpretation Comments Alkaline Phosphatase (test code = 6768-6) 72 40-150 [facility] HospitalCreatine Carmdl1313-61-49 10:52:00* Test Item Value Reference Range Interpretation Comments Creatine Kinase (test code = 2157-6) 76 29-168 [facility] HospitalUrine ZDI1792-69-99 10:40:00* Test Item Value Reference Range Interpretation Comments Urine WBC (test code = 5821-4) 0-5 0-5 [facility] HospitalUrine VUN9339-00-75 10:40:00* Test Item Value Reference Range Interpretation Comments Urine RBC (test code = 85080-0) 0-5 0-5 [facility] HospitalUrine Oxaycsxn2234-14-74 10:40:00* Test Item Value Reference Range Interpretation Comments Urine Bacteria (test code = 80036-1) NONE NONE [facility] HospitalUrine Epithelial Vzorf7527-65-29 10:40:00 * Test Item Value Reference Range Interpretation Comments Urine Epithelial Cells (test code = 36962-8) FEW NONE [facility] HospitalWhite Blood Plokh6020-75-30 10:29:00* Test Item Value Reference Range Interpretation Comments White Blood Count (test code = 6690-2) 10.89 4.8-10.8 H [facility] HospitalRed Blood Wsylz8614-15-31 10:29:00* Test Item Value Reference Range Interpretation Comments Red Blood Count (test code = 789-8) 3.85 3.6-5.1 [facility] HospitalHemoglobin2019-11-02 10:29:00* Test Item Value Reference Range Interpretation Comments Hemoglobin (test code = 45819-3) 12.7 12.0-16.0 [facility] HospitalHematocrit2019-11-02 10:29:00* Test Item Value Reference Range Interpretation Comments Hematocrit (test code = 4544-3) 37.6 34.2-44.1 [facility] HospitalMean Corpuscular Idaflm1743-17-64 10:29:00* Test Item Value Reference Range Interpretation Comments Mean Corpuscular Volume (test code = 787-2) 97.7 81-99 [facility] HospitalMean Corpuscular Yezfuzeqow9543-23-99 10:29:00* Test Item Value Reference Range Interpretation Comments Mean Corpuscular Hemoglobin (test code = 785-6) 33.0 28-32 H [facility] HospitalMean Corpuscular Hemoglobin Concent 2019-02-02 10:29:00* Test Item Value Reference Range Interpretation Comments Mean Corpuscular Hemoglobin Concent (test code = 786-4) 33.8 31-35 [facility] HospitalRed Cell Distribution Uvklo6891-16-72 10:29:00* Test Item Value Reference Range Interpretation Comments Red Cell Distribution Width (test code = 82716-1) 12.0 11.7 -14.4 [facility] HospitalPlatelet Pdgux6393-18-12 10:29:00* Test Item Value Reference Range Interpretation Comments Platelet Count (test code = 777-3) 234 140-360 [facility] HospitalNeutrophils (%) (Auto)2019-02-02 10:29:00 * Test Item Value Reference Range Interpretation Comments Neutrophils (%) (Auto) (test code = 71784-5) 82.6 38.7-80.0 H [facility] HospitalLymphocytes (%) (Auto)2019-02-02 10:29:00 * Test Item Value Reference Range Interpretation Comments Lymphocytes (%) (Auto) (test code = 736-9) 10.5 18.0-39.1 L [facility] HospitalMonocytes (%) (Auto)2019-02-02 10:29:00* Test Item Value Reference Range Interpretation Comments Monocytes (%) (Auto) (test code = 5905-5) 5.6 4.4-11.3 [facility] HospitalEosinophils (%) (Auto)2019-02-02 10:29:00 * Test Item Value Reference Range Interpretation Comments Eosinophils (%) (Auto) (test code = 713-8) 0.6 0.0-6.0 [facility] HospitalBasophils (%) (Auto)2019-02-02 10:29:00* Test Item Value Reference Range Interpretation Comments Basophils (%) (Auto) (test code = 706-2) 0.4 0.0-1.0 [facility] HospitalIM GRANULOCYTES %2019-02-02 10:29:00* Test Item Value Reference Range Interpretation Comments IM GRANULOCYTES % (test code = IM GRANULOCYTES %) 0.3 0.0- 1.0 [facility] HospitalNeutrophils # (Auto)2019-02-02 10:29:00* Test Item Value Reference Range Interpretation Comments Neutrophils # (Auto) (test code = 751-8) 9.0 2.1-6.9 H [facility] HospitalLymphocytes # (Auto)2019-02-02 10:29:00* Test Item Value Reference Range Interpretation Comments Lymphocytes # (Auto) (test code = 30393-1) 1.1 1.0-3.2 [facility] HospitalMonocytes # (Auto)2019-02-02 10:29:00* Test Item Value Reference Range Interpretation Comments Monocytes # (Auto) (test code = 742-7) 0.6 0.2-0.8 [facility] HospitalEosinophils # (Auto)2019-02-02 10:29:00* Test Item Value Reference Range Interpretation Comments Eosinophils # (Auto) (test code = 711-2) 0.1 0.0-0.4 [facility] HospitalBasophils # (Auto)2019-02-02 10:29:00* Test Item Value Reference Range Interpretation Comments Basophils # (Auto) (test code = 704-7) 0.0 0.0-0.1 [facility] HospitalAbsolute Immature Granulocyte (auto 2019-02-02 10:29:00* Test Item Value Reference Range Interpretation Comments Absolute Immature Granulocyte (auto (prosper t code = Absolute Immature Granulocyte (auto) 0.03 0-0.1 [facility] HospitalUrine Albsc0370-92-30 10:29:00* Test Item Value Reference Range Interpretation Comments Urine Color (test code = 5778-6) YELLOW YELLOW [facility] HospitalUrine Ijcgtgt8282-16-55 10:29:00* Test Item Value Reference Range Interpretation Comments Urine Clarity (test code = 05815-8) CLEAR CLEAR [facility] Specific Qluedcm1972-52-53 10:29:00 * Test Item Value Reference Range Interpretation Comments Urine Specific [place] (test code = 5811-5) <=1.005 1.010-1.02 5 [facility] HospitalUrine sS6477-58-32 10:29:00* Test Item Value Reference Range Interpretation Comments Urine pH (test code = 28347-8) 7 5-7 [facility] Leukocyte Njgeozpw6122-36-66 10:29:00* Test Item Value Reference Range Interpretation Comments Urine Leukocyte Esterase (test code = 07574-5) TRACE NEGATIV E H [facility] Hdqoqfj2572-00-90 10:29:00* Test Item Value Reference Range Interpretation Comments Urine Nitrite (test code = 13480-0) NEGATIVE NEGATIVE [facility] Tptdbre3781-68-91 10:29:00* Test Item Value Reference Range Interpretation Comments Urine Protein (test code = 24400-0) NEGATIVE NEGATIVE [facility] Glucose (UA)2019-02-02 10:29:00* Test Item Value Reference Range Interpretation Comments Urine Glucose (UA) (test code = 29059-8) NEGATIVE NEGATIVE [facility] Stsnixg4689-37-93 10:29:00* Test Item Value Reference Range Interpretation Comments Urine Ketones (test code = 60236-5) NEGATIVE NEGATIVE [facility] Dczynevilyyb3907-14-74 10:29:00* Test Item Value Reference Range Interpretation Comments Urine Urobilinogen (test code = 73066-0) 0.2 0.2-1 [facility] Cnnsrkzfm6440-60-73 10:29:00* Test Item Value Reference Range Interpretation Comments Urine Bilirubin (test code = 1977-8) NEGATIVE NEGATIVE [facility] Guuxz9734-46-03 10:29:00* Test Item Value Reference Range Interpretation Comments Urine Blood (test code = 65726-3) 1+ NEGATIVE [facility] HospitalUrine color wbbmmznvxkgto3723-69-03 09:38:00* Test Item Value Reference Range Interpretation Comments Urine Color (test code = 5778-6) YELLOW YELLOW [facility] HospitalUrine jtfuszl8034-86-83 09:38:00* Test Item Value Reference Range Interpretation Comments Urine Clarity (test code = 05104-8) CLEAR CLEAR [facility] gravity of Urine by Test strip 2019-02-02 09:38:00* Test Item Value Reference Range Interpretation Comments Urine Specific [place] (test code = 5811-5) <=1.005 1.010-1.02 5 [facility] HospitalUrine pH measurement by automated test klgnw8400-99-39 09:38:00* Test Item Value Reference Range Interpretation Comments Urine pH (test code = 11953-4) 7 5-7 [facility] HospitalUrine leukocyte esterase detection by automated test xibqe4758-05-89 09:38:00* Test Item Value Reference Range Interpretation Comments Urine Leukocyte Esterase (test code = 90648-7) TRACE NEGATIV E [facility] HospitalUrine nitrite detection by automated test azcqk1166-24-72 09:38:00* Test Item Value Reference Range Interpretation Comments Urine Nitrite (test code = 74175-0) NEGATIVE NEGATIVE [facility] HospitalUrine protein detection by automated test pwmqi6951-20-66 09:38:00* Test Item Value Reference Range Interpretation Comments Urine Protein (test code = 93724-8) NEGATIVE NEGATIVE [facility] HospitalUrine glucose detection by automated test dkmgf7733-74-98 09:38:00* Test Item Value Reference Range Interpretation Comments Urine Glucose (UA) (test code = 07753-6) NEGATIVE NEGATIVE [facility] HospitalUrine ketones detection by automated test jyezn8987-74-06 09:38:00* Test Item Value Reference Range Interpretation Comments Urine Ketones (test code = 07173-8) NEGATIVE NEGATIVE [facility] HospitalUrine urobilinogen measurement by test strip (mass/volume)2019-02-02 09:38:00* Test Item Value Reference Range Interpretation Comments Urine Urobilinogen (test code = 10957-6) 0.2 0.2-1 [facility] HospitalUrine total bilirubin lujbbncjp8984-05-09 09:38:00* Test Item Value Reference Range Interpretation Comments Urine Bilirubin (test code = 1977-8) NEGATIVE NEGATIVE [facility] HospitalUrine erythrocytes ggzkjhfst5214-22-25 09:38:00* Test Item Value Reference Range Interpretation Comments Urine Blood (test code = 29001-7) 1+ NEGATIVE [facility] HospitalAutomated urine sediment leukocyte count by microscopy (number/high power field)2019-02-02 09:38:00* Test Item Value Reference Range Interpretation Comments Urine WBC (test code = 5821-4) 0-5 0-5 [facility] HospitalErythrocytes detection in urine sediment by light hhndypacoc1240-99-44 09:38:00* Test Item Value Reference Range Interpretation Comments Urine RBC (test code = 29207-5) 0-5 0-5 [facility] HospitalBacteria detection in urine sediment by light dqovuhrkcy2552-22-74 09:38:00* Test Item Value Reference Range Interpretation Comments Urine Bacteria (test code = 84791-3) NONE NONE [facility] HospitalEpithelial cells detection in urine sediment by light bbxccctodp4878-65-58 09:38:00* Test Item Value Reference Range Interpretation Comments Urine Epithelial Cells (test code = 36028-9) FEW NONE [facility] Hospitalerum or plasma magnesium measurement (mass/volume)2019-02-02 09:38:00* Test Item Value Reference Range Interpretation Comments Magnesium Level (test code = 73012-7) 1.8 1.3-2.1 [facility] HospitalWhite Blood Pqplf9228-23-82 06:24:00* Test Item Value Reference Range Interpretation Comments White Blood Count (test code = 6690-2) 15.38 4.8-10.8 H [facility] HospitalRed Blood Bmmcv6696-95-84 06:24:00* Test Item Value Reference Range Interpretation Comments Red Blood Count (test code = 789-8) 3.28 3.6-5.1 L [facility] HospitalHemoglobin2018-09-14 06:24:00* Test Item Value Reference Range Interpretation Comments Hemoglobin (test code = 60319-1) 10.7 12.0-16.0 L [facility] HospitalHematocrit2018-09-14 06:24:00* Test Item Value Reference Range Interpretation Comments Hematocrit (test code = 4544-3) 33.0 34.2-44.1 L [facility] HospitalMean Corpuscular Mharui2721-07-88 06:24:00* Test Item Value Reference Range Interpretation Comments Mean Corpuscular Volume (test code = 787-2) 100.6 81-99 H [facility] HospitalMean Corpuscular Xlsxoskwjk7384-38-90 06:24:00* Test Item Value Reference Range Interpretation Comments Mean Corpuscular Hemoglobin (test code = 785-6) 32.6 28-32 H [facility] HospitalMean Corpuscular Hemoglobin Concent 2017-12-15 06:24:00* Test Item Value Reference Range Interpretation Comments Mean Corpuscular Hemoglobin Concent (test code = 786-4) 32.4 31-35 [facility] HospitalRed Cell Distribution Bjrie6661-59-85 06:24:00* Test Item Value Reference Range Interpretation Comments Red Cell Distribution Width (test code = 28533-5) 11.9 11.7 -14.4 [facility] HospitalPlatelet Cgmft0144-59-65 06:24:00* Test Item Value Reference Range Interpretation Comments Platelet Count (test code = 777-3) 194 140-360 [facility] HospitalNeutrophils (%) (Auto)2017-12-15 06:24:00 * Test Item Value Reference Range Interpretation Comments Neutrophils (%) (Auto) (test code = 13738-6) 88.8 38.7-80.0 H [facility] HospitalLymphocytes (%) (Auto)2017-12-15 06:24:00 * Test Item Value Reference Range Interpretation Comments Lymphocytes (%) (Auto) (test code = 736-9) 4.5 18.0-39.1 L [facility] HospitalMonocytes (%) (Auto)2017-12-15 06:24:00* Test Item Value Reference Range Interpretation Comments Monocytes (%) (Auto) (test code = 5905-5) 6.0 4.4-11.3 [facility] HospitalEosinophils (%) (Auto)2017-12-15 06:24:00 * Test Item Value Reference Range Interpretation Comments Eosinophils (%) (Auto) (test code = 713-8) 0.0 0.0-6.0 [facility] HospitalBasophils (%) (Auto)2017-12-15 06:24:00* Test Item Value Reference Range Interpretation Comments Basophils (%) (Auto) (test code = 706-2) 0.2 0.0-1.0 [facility] HospitalIM GRANULOCYTES %2017-12-15 06:24:00* Test Item Value Reference Range Interpretation Comments IM GRANULOCYTES % (test code = IM GRANULOCYTES %) 0.5 0.0- 1.0 [facility] HospitalNeutrophils # (Auto)2017-12-15 06:24:00* Test Item Value Reference Range Interpretation Comments Neutrophils # (Auto) (test code = 751-8) 13.7 2.1-6.9 H [facility] HospitalLymphocytes # (Auto)2017-12-15 06:24:00* Test Item Value Reference Range Interpretation Comments Lymphocytes # (Auto) (test code = 39644-7) 0.7 1.0-3.2 L [facility] HospitalMonocytes # (Auto)2017-12-15 06:24:00* Test Item Value Reference Range Interpretation Comments Monocytes # (Auto) (test code = 742-7) 0.9 0.2-0.8 H [facility] HospitalEosinophils # (Auto)2017-12-15 06:24:00* Test Item Value Reference Range Interpretation Comments Eosinophils # (Auto) (test code = 711-2) 0.0 0.0-0.4 [facility] HospitalBasophils # (Auto)2017-12-15 06:24:00* Test Item Value Reference Range Interpretation Comments Basophils # (Auto) (test code = 704-7) 0.0 0.0-0.1 [facility] HospitalAbsolute Immature Granulocyte (auto 2017-12-15 06:24:00* Test Item Value Reference Range Interpretation Comments Absolute Immature Granulocyte (auto (prosper t code = Absolute Immature Granulocyte (auto) 0.07 0-0.1 [facility] HospitalCHEST 2 QQGUA7126-81-52 12:05:00 [facility] [address] [address] Patient Name: ROXANNA PENNY MR #: [id number] : 1940 Age/Sex: 77/F Req #: [id number] Adm Physician: Ordered by: DIANA LEES MD Report #: [id number] Location: OR Room/Bed: Procedure: [id number] DX/CHEST 2 VIEWS Exam Date: 12/12/17 Exam [...] MD 06 Transcribed By: MARY KAY on 12/12/17 1207 COPY TO : DIANA LEES MD Sodium Xchxl2253-06-96 11:44:00* Test Item Value Reference Range Interpretation Comments Sodium Level (test code = 2951-2) 140 136-145 [facility] HospitalPotassium Lglxk6080-82-50 11:44:00* Test Item Value Reference Range Interpretation Comments Potassium Level (test code = 2823-3) 4.3 3.5-5.1 [facility] HospitalChloride Rmxlo9600-21-50 11:44:00* Test Item Value Reference Range Interpretation Comments Chloride Level (test code = 2075-0) 99 98-107 [facility] D[facility]ide [id number] 11:44:00* Test Item Value Reference Range Interpretation Comments Carbon Dioxide Level (test code = 2028-9) 32 22-29 H [facility] HospitalAnion [id number] 11:44:00* Test Item Value Reference Range Interpretation Comments Anion Gap (test code = 92041-2) 13.3 8-16 [facility]Blood Urea [id number] 11:44:00* Test Item Value Reference Range Interpretation Comments Blood Urea Nitrogen (test code = 3094-0) 13 7-26 [facility] HospitalCreatinine2018-09-11 11:44:00* Test Item Value Reference Range Interpretation Comments Creatinine (test code = 2160-0) 0.76 0.57-1.11 [facility] HospitalBUN/Creatinine [id number] 11:44:00* Test Item Value Reference Range Interpretation Comments BUN/Creatinine Ratio (test code = 3097-3) 17 6-25 [facility] HospitalEstimat Glomerular Filtration Rate 2017-12-12 11:44:00* Test Item Value Reference Range Interpretation Comments Estimat Glomerular Filtration Rate (test code = 17667-2) 60- >60 Ranges were taken from the National Kidney Disease Education Program and the [facility] [employer] literature.Reference ranges:60 or greater: Llswzl41-94 ( for 3 consecutive months): Chronic kidney disease 15 or less: Kidney failureSeymour HospitalGlucose [id number] 11:44:00* Test Item Value Reference Range Interpretation Comments Glucose Level (test code = ZWW8497) 81 74-118 [facility] HospitalCalcium [id number] 11:44:00* Test Item Value Reference Range Interpretation Comments Calcium Level (test code = 10341-9) 9.9 8.4-10.2 [facility]
[2019-12-30 03:37] LABS: AMYLASE 44 U/L (25-125); LIPASE 34 U/L (8-78)
[2019-12-30 03:40] LABS: ALANINE AMINOTRANSFERASE 16 IU/L (0-55); ALBUMIN 4.6 g/dL (3.5-5.0); ALBUMIN/GLOBULIN RATIO 1.7 (0.8-2.0); ALKALINE PHOSPHATASE 65 IU/L (40-150); ANION GAP 16.6 mmol/L (8-16); BLOOD UREA NITROGEN 12 mg/dL (7-26); BUN/CREATININE RATIO 16 (6-25); CALCIUM 9.2 mg/dL (8.4-10.2); CARBON DIOXIDE 27 mmol/L (22-29); CHLORIDE 96 mmol/L (98-107); CREATINE KINASE 67 IU/L (29-168); CREATININE, SERUM 0.75 mg/dL (0.57-1.11); EST GLOMERULAR FILTRATION RATE > 60 ML/MIN (60-); GLUCOSE 117 mg/dL (74-118); POTASSIUM 3.6 mmol/L (3.5-5.1); SODIUM 136 mmol/L (136-145)
[2019-12-30] MEDS ORDERED: LORAZEPAM INJ 2 MG/ML VIAL IV ONE (04:00)
[2019-12-30] MEDS ORDERED: MECLIZINE HCL 12.5 MG TAB PO ONE (04:00)
--- NOTE | 2019-12-30 04:33 | Diagnostic Imaging Report ---
EXAMINATION: Head CT HISTORY: 79-year-old female with headache and hypertension COMPARISON: None. TECHNIQUE: Helical axial images of the head were obtained. Reformatted coronal and sagittal images from the axial data. Dose modulation, iterative reconstruction, and/or weight based adjustment of the mA/kV was utilized to reduce the radiation dose to as low as reasonably achievable. FINDINGS: Parenchyma: 1. A few scattered white matter hypodensities, most likely age-related minimal chronic microvascular ischemic changes. Possible tiny chronic lacunar infarct in the left thalamocapsular region. 2. No mass or hemorrhage. No CT evidence of acute territorial vascular insult. Extra-axial spaces:No abnormal density. No extra-axial fluid collections Brain volume: Normal for age. Ventricles: No hydrocephalus or displacement. Arteries: No density suggestive of thrombus. Dural sinuses: No abnormal density. Foramen magnum: No mass, Chiari malformation, or basilar invagination. Sella: No obvious mass. Paranasal/mastoid sinuses: Imaged portions unremarkable. Skull/Scalp: No lytic or blastic lesions. No fractures. IMPRESSION: No acute intracranial abnormalities, particularly no hemorrhage. Signed by: Dr. Darby Garces M.D. on 12/30/2019 4:29 AM
[2019-12-30 05:39] LABS: CLARITY,URINE CLOUDY (CLEAR); COLOR,URINE YELLOW (YELLOW); LEUKOCYTE ESTERASE ,URINE SMALL (NEGATIVE); NITRITE,URINE NEGATIVE (NEGATIVE); PROTEIN,URINE DIPSTICK 2+ (NEGATIVE)
[2019-12-30 05:40] LABS: BILIRUBIN,URINE NEGATIVE (NEGATIVE); KETONES,URINE 1+ (NEGATIVE); URINE UROBILINOGEN 0.2 mg/dL (0.2 - 1)
[2019-12-30 05:49] LABS: BACTERIA,URINE MANY /HPF; EPITHELIAL CELLS,URINE FEW /LPF; RENAL EPITHELIAL CELLS,URINE FEW; TRANSITIONAL EPI CELLS,URINE FEW; WBC,URINE (MAN) 21-50 /HPF (0-5)
[2019-12-30] MEDS ORDERED: ONDANSETRON HCL INJ 2MG/ML 2ML 2 MG/ML VIAL IV PRN (06:00)
[2019-12-30] MEDS ORDERED: LEVOFLOXACIN 500MG/D5W 100ML 100 ML IV SCH (06:00)
--- OUTSIDE RECORDS SUMMARY | 2019-12-30 06:06 | XMS REPORT | Continuity of Care Document ---
Author Author [facility] t Organization [facility] Address [address] [place] [address] Phone Unavailable Care Team Providers Care Sales Marketing Coordinator Name Role Phone Nano LINO PCP Edwar CHONG Attphys Unavailable BOAZ, Darby LAIGABI Attphys Unavailable Suzi MITTAL Attphys Unavailable DIANA LEES Attphys Unavailable Payers Payer Name Policy Type Policy Number Effective Date Expiration Date Suzi Leyva Plus [id number] 2017 00:00:00 DARLENE poe [facility] Problems Condition Name Condition Details Condition Category Status Onset Date Resolution Date Last Treatment Date Treating Clinician Comments Source Hypothyroidism Hypothyroidism Problem Active 2019-12-04 00:00:00 [facility] Anxiety Anxiety Problem Active 2019-12-04 00:00:00 [facility] Essential hypertension Essential Hypertension Problem Active 2019-12-04 00:00:00 [facility] Seasonal allergic rhinitis Seasonal Allergic Rhinitis Problem Active 2019-12-04 00:00:00 [facility] Chronic obstructive lung disease Chronic Obstructive Lung Diseas e Problem Active 2019-12-04 00:00:00 [facility] Gastroesophageal reflux disease Gastroesophageal Reflux Disease Pro blem Active 2019-12-04 00:00:00 [facility] Small intestinal infarction Small Intestinal Infarction Problem Active 2015-08-20 00:00:00 [facility] Headache Problem Active [facility] Hiatal hernia Problem Active [facility] Constipation Problem Active [facility] Allergies, Adverse Reactions, Alerts Allergy Name Allergy Type Status Severity Reaction(s) Onset Date Inacti ve Date Treating Clinician Comments Source nifedipine DA Active U 2019-09-28 00:00:00 [facility] escitalopram DA Active U 2019-09-28 00:00:00 [facility] ergotamine tartrate DA Active U 2019-07-25 00:00:00 [facility] meperidine HCl DA Active U 2019-07-25 00:00:00 [facility] butorphanol tartrate DA Active U 2019-07-25 00:00:00 [facility] Pentazocine Lactate DA Active U 2019-07-25 00:00:00 [facility] caffeine FA Active U 2019-07-25 00:00:00 [facility] codeine DA Active U 2019-07-25 00:00:00 [facility] naproxen DA Active U 2019-07-25 00:00:00 [facility] cimetidine DA Active U 2019-07-25 00:00:00 [facility] trazodone DA Active U 2019-07-25 00:00:00 [facility] sertraline DA Active U 2019-07-25 00:00:00 [facility] penicillin G DA Active U 2019-07-25 00:00:00 [facility] ergotamine tartrate DA Active U 2019-07-24 00:00:00 [facility] meperidine HCl DA Active U 2019-07-24 00:00:00 [facility] butorphanol tartrate DA Active U 2019-07-24 00:00:00 [facility] Pentazocine Lactate DA Active U 2019-07-24 00:00:00 [facility] caffeine FA Active U 2019-07-24 00:00:00 [facility] iodine DA Active U 2019-07-24 00:00:00 [facility] codeine DA Active U 2019-07-24 00:00:00 [facility] naproxen DA Active U 2019-07-24 00:00:00 [facility] cimetidine DA Active U 2019-07-24 00:00:00 [facility] trazodone DA Active U 2019-07-24 00:00:00 [facility] sertraline DA Active U 2019-07-24 00:00:00 [facility] penicillin G DA Active U 2019-07-24 00:00:00 [facility] Sertraline Allergy to substance Active 2019-02-02 00:00:00 [facility] Trazodone Allergy to substance Active 2017-12-14 00:00:00 [facility] Iodinated Contrast Media Allergy to substance Active 20 19-12-12 00:00:00 [facility] Codeine Allergy to substance Active 2017-12-12 00:00:00 [facility] Butorphanol Allergy to substance Active 2017-12-12 00:00:00 [facility] Cimetidine Allergy to substance Active 2017-12-12 00:00:00 [facility] Meperidine Allergy to substance Active 2017-12-12 00:00:00 [facility] Naproxen Allergy to substance Active 2017-12-12 00:00:00 [facility] Pentazocine Allergy to substance Active 2017-12-12 00:00:00 [facility] Promethazine Allergy to substance Active 2017-12-12 00:00:0 0 [facility] penicillin Allergy to substance Active Mild RASH 2017-12-12 00:00:00 [facility] Caffeine Allergy to substance Active 2015-08-31 00:00:00 [facility] Ergotamine Allergy to substance Active 2015-08-31 00:00:00 [facility] ergotamine tartrate DA Active U 2010-02-03 00:00:00 [facility] meperidine HCl DA Active U 2010-02-03 00:00:00 [facility] butorphanol tartrate DA Active U 2010-02-03 00:00:00 [facility] Pentazocine Lactate DA Active U 2010-02-03 00:00:00 [facility] caffeine FA Active U 2010-02-03 00:00:00 [facility] iodine DA Active U 2010-02-03 00:00:00 [facility] codeine DA Active U 2010-02-03 00:00:00 [facility] penicillin G DA Active U 2010-02-03 00:00:00 [facility] TUNA DA Active U 2010-02-03 00:00:00 [facility] Demerol Allergy to substance Active [facility] Estradiol Allergy to substance Active [facility] PENICILLINS Allergy to substance Active [facility] Phenergan Allergy to substance Active [facility] Talwin Allergy to substance Active [facility] Zoloft Allergy to substance Active [facility] Zithromax Allergy to substance Active Moderate Vomiting [facility] Social History Social Habit Start Date Stop Date Quantity Comments Source Sex Ass[birth year] At 1940 00:00:00 1940 00:00:00 Female [facility] Smoking Status Start Date Stop Date Source Former Smoker [facility] Medications Ordered Medication Name Filled Medication [...] day by oral route for [facility] days. [facility] 100 mg tablet Take 1 tablet twice a day by oral route for 7 days. doxycycline hyclate 100 mg tablet Take 1 tablet twice a day by oral route for 7 days. No doxycycline hyclate 100 mg tablet Take 1 tablet twice a day by oral route for 7 days. [facility] fluoxetine 10 mg capsule Take 1 capsule every day by o ral route for 30 days. fluoxetine 10 mg capsule Take 1 capsule every day by oral route for 30 days. No 1capsule(s) Q1D fluoxetine 10 mg capsule Take 1 capsule every day by oral route for 30 days. [facility] ice fluticasone propionate 50 mcg/actuation nasal spray,suspension 1 spray each nostril twice a day fluticasone propionate 50 mcg/actuation nasal spray,suspension 1 spray each nostril twice a day No fluticasone propionate 50 mcg/actuation nasal spray,suspension 1 spray each nostril twice a day [facility] lansoprazole 30 mg capsule,delayed relea se Take 1 capsule twice a day by oral route before meals. lansoprazole 30 mg capsule,delayed relea se Take 1 capsule twice a day by oral route before meals. No 1capsule(s) BID lansoprazole 30 mg capsule,delayed release Take 1 capsule twice a day by oral route before meals. [facility] ice levothyroxine 50 mcg tablet Take 1 tablet every day by oral route. levothyroxine 50 mcg tablet Take 1 tablet every day by oral route. No 1 Q1D levothyroxine 50 mcg tablet Take 1 tablet every day by oral route. [facility] losartan 25 mg tablet Take 1 tablet twice a day by ora l route. losartan 25 mg tablet Take 1 tablet twice a day by oral route. No 1 BID losartan 25 mg tablet Take 1 tablet twice a day by oral route. [facility] Tylenol Extra Strength 500 mg tablet Itz e 2 tablets every 6 hours by oral route. Tylenol Extra Strength 500 mg tablet Itz e 2 tablets every 6 hours by oral route. No [address] rength 500 mg tablet Take 2 tablets every 6 hours by oral route. [facility] karma Acetaminophen Acetaminophen Yes 500 [facility] Alprazolam Alprazolam Yes 1 Three Time s A Day as needed for Anxiety [facility] Benzonatate Benzonatate Yes 100 Three Times A Da y [facility] Fluoxetine Hcl Fluoxetine Hcl Yes 20 Twice A Da y [facility] Fluticasone Fluticasone Yes 50 As Needed [facility] Hydrocodone Bit/Acetaminophen ([place] 5-325 Tablet) 1 E ach TABLET Hydrocodone Bit/Acetaminophen ([place] 5-325 Tablet) 1 Each TABLET Yes 1 Every 4 Hours as needed for Pain [facility] Ipratropium/Albuterol Sulfate (Combivent Respimat Inha l [place]) 4 Gm AER.W.ADAP Ipratropium/Albuterol Sulfate (Combivent Respimat Inhal [place]) 4 Gm AER.W.ADAP Yes 4 As Needed [facility] Levothyroxine Sodium Levothyroxine Sodium Yes 50 Daily [facility] Paroxetine Hcl Paroxetine Hcl Yes 40 Daily [facility] Lansoprazole Lansoprazole 2017-12-15 00:00:00 No 30 Daily [facility] Fexofenadine Hcl (Raegan Allergy) 60 Mg TABLET Fexofe bruce Hcl (Raegan Allergy) 60 Mg TABLET 2017-12-12 00:00:00 No 20 Tw ice A Day [facility] Fexofenadine Hcl (Raegan Allergy) 60 Mg TABLET Fexofe bruce Hcl (Raegan Allergy) 60 Mg TABLET 2017-12-12 00:00:00 No 60 [facility] Furosemide Furosemide 2017-12-12 00:00:00 No 20 Lissette ly [facility] Potassium Chloride Potassium Chloride 2017-12-12 00:00:00 No 10 Daily [facility] Vital Signs Vital Name Observation Time Observation Value Comments Source Height 2019-12-24 00:00:00 62.5 [in_i] [facility] BP Diastolic 2019-12-16 00:00:00 67 mm[Hg] [facility] Height 2019-12-16 00:00:00 62.5 [in_i] [facility] BP Systolic 2019-12-16 00:00:00 123 mm[Hg] [facility] BP Diastolic 2019-12-10 00:00:00 61 mm[Hg] [facility] Height 2019-12-10 00:00:00 62.5 [in_i] [facility] BMI (Body Mass Index) 2019-12-10 00:00:00 27 kg/m2 [facility] BP Systolic 2019-12-10 00:00:00 97 mm[Hg] [facility] Body Weight 2019-12-10 00:00:00 150 [lb_av] [facility] Weight 2019-12-25 06:05:00 179 [lb_av] [facility] BMI (Body Mass Index) 2019-12-25 06:05:00 28.9 kg/m2 [facility] Weight 2019-11-08 10:36:00 179 [lb_av] [facility] BMI (Body Mass Index) 2019-11-08 10:36:00 28.9 kg/m2 [facility] Procedures Procedure Date / Time Performed Performing Clinician [facility] e CT of abdomen and pelvis without contrast 2019-12-25 00:00:00 [facility] EMERGENCY DEPT VISIT 2019-11-08 00:00:00 [facility] Plan of Care Planned Activity Planned Date Details Comments Source Future Appointment 2020-01-21 00:00:00 Soni Lino, [address]; [address], [place] [address] [facility] Instructions Abdominal Pain - Adult [facility] Instructions Constipation - Adult [facility] Instructions Vomiting - Adult [facility] Encounters Start Date/Time End Date/Time [facility] ID Source 2019-12-25 07:10:00 2019-12-25 09:48:00 Departed Emergency Room 1 YAMILA SANDRA [facility] [id number] [facility] 2019-12-24 00:00:00 2019-12-24 00:00:00 Soni Lino MD: [address], [address], [place] [address], Ph. [facility] (WAG) [id number] [facility] e 2019-12-17 00:00:00 2019-12-17 00:00:00 Armani elizalde MD: [address] [facility] [address], [place] [address], Ph. [facility] [id number] [facility] 2019-12-16 00:00:00 2019-12-16 00:00:00 Soni Lino MD: [address], [address], [place] [address], Ph. [facility] [place] [facility] ([facility]) [id number] [facility] 2019-12-10 00:00:00 2019-12-10 00:00:00 Soni Lino MD: [address], [address], [place] [address], Ph. [facility] - [facility] ([facility]) [id number] [facility] 2019-12-04 00:00:00 2019-12-04 00:00:00 Soni Lino MD: [address], [address], [place] [address], Ph. [facility] - [facility] (W[facility]) [id number] [facility] 2019-11-08 10:51:00 2019-11-08 16:03:00 Departed Emergency Room INESSA MITTAL [facility] [id number] I [facility] 2019-02-02 09:30:00 2019-02-02 13:12:00 Departed Emergency Room 1 YAMILA SANDRA [facility] [id number] [facility] 2017-12-14 18:16:00 2017-12-15 16:24:00 Discharged Inpatient (obs) 3 DIANA LEES [facility] [id number] [facility] Results Test Description Test Time Test Comments Results Result Comments Source CT BRAIN WO 2019-12-30 04:26:00 [facility] [address] [place] [address] Patient Name: ROXANNA PENNY MR #: [id number] : 1940 Age/Sex: 79/F Req #: [id number] Adm Physician: Ordered by: JONY CHONG MD Report #: [id number] Location: Room/Bed: Procedure: [id number] CT/CT BRAIN WO Exam Date: 12/30/19 Exam Time: 339 REPORT STATUS: Signed EXAMINATION: Head CT HISTORY: 79-year-old female with headache and hypertension COMPARISON: None. TECHNIQUE: Helical axial images of the head were obtained. Reformatted coronal and sagittal images from the axial data. Dose modulation, iterative reconstruction, and/or weight based adjustment of the mA/kV was utilized to reduce the radiation dose to as low as reasonably achievable. FINDINGS: Parenchyma: 1. A few scattered white matter hypodensities, most likely age-related minimal chronic microvascular ischemic changes. Possible tiny chronic lacunar infarct in the left thalamocapsular region. 2. No mass or hemorrhage. No CT evidence of acute territorial vascular insult. Extra-axial spaces:No abnormal density. No extra-axial fluid collections Brain volume: Normal for age. Ventricles: No hydrocephalus or displacement. Arteries: No density suggestive of thrombus. Dural sinuses: No abnormal density. Foramen magnum: No mass, Chiari malformation, or basilar invagination. Sella: No obvious mass. Paranasal/mastoid sinuses: Imaged portions unremarkable. Skull/Scalp: No lytic or blastic lesions. No fractures. IMPRESSION: No acute intracranial abnormalities, particularly no hemorrhage. Signed by: Dr. Jevon Garces M.D. on 12/30/2019 4:29 AM Dictated By: JEVON GARCES MD 8 Transcribed By: MARY KAY on 12/30/19428 COPY TO: JONY CHONG MD CT ABDOMEN/PELVIS WO 2019-12-25 08:30:[address] [place] [address] Patient Name: ROXANNA PENNY MR #: [id number] : 1940 Age/Sex: 79/F [facility] #: [id number] Req #: [id number] [facility] Physician: Ordered by: YAMILA SANDRA MD Report #: [id number] Location: ER Room/Bed: Procedure: [id number] CT/CT ABDOMEN/PELVIS WO Exam Date: 12/25/19 Exam [...] SANDRA MD CHEST SINGLE (PORTABLE) 2019-12-25 07:02:00 [place] [address] Patient Name: ROXANNA PENNY MR #: [id number] : 1940 Age/Sex: 79/F Req #: [id number] [facility] Physician: Ordered by: YAMILA SANDRA MD Report #: [id number] Location: ER Room/Bed: Procedure: [id number] DX/CHEST SINGLE (PORTABLE) Exam Date: 12/25/19 Exam [...] Level (test code = 2951-2) 138 136-145 [facility] plasma potassium measurement (moles/volume)2019-12-25 06:57:00* Test Item Value Reference Range Interpretation Comments Potassium Level (test code = 2823-3) 3.9 3.5-5.1 [facility] plasma chloride measurement (moles/volume)2019-12-25 06:57:00* Test Item Value Reference Range Interpretation Comments Chloride Level (test code = 2075-0) 99 98-107 [facility] or plasma carbon dioxide, total measurement (moles/volume)2019-12-25 06:57:00* Test Item Value Reference Range Interpretation Comments Carbon Dioxide Level (test code = 2028-9) 28 22-29 [facility] or plasma anion [id number] 06:57:00* Test Item Value Reference Range Interpretation Comments Anion Gap (test code = 75205-0) 14.9 8-16 [facility] or plasma urea nitrogen measurement (mass/volume)2019-12-25 06:57:00* Test Item Value Reference Range Interpretation Comments Blood Urea Nitrogen (test code = 3094-0) 12 7-26 [facility] or plasma creatinine measurement (mass/volume)2019-12-25 06:57:00* Test Item Value Reference Range Interpretation Comments Creatinine (test code = 2160-0) 0.72 0.57-1.11 [facility] or plasma urea nitrogen/creatinine mass [id number] 06:57:00* Test Item Value Reference Range Interpretation Comments BUN/Creatinine Ratio (test code = 3097-3) 17 6-25 [facility] CenterEstimated glomerular filtration rate (GFR) [id number] 06:57:00* Test Item Value Reference Range Interpretation Comments Estimat Glomerular Filtration Rate (test code = 813573754) > 60 >60 Ranges were taken from the National Kidney Disease Education Program and the [employer] literature.Reference ranges:60 or greater: [id number] ( for 3 consecutive months): Chronic kidney disease 15 or less: Kidney failureMem[facility]–[place] Medical CenterGlucose [id number] 06:57:00* Test Item Value Reference Range Interpretation Comments Glucose Level (test code = FCY1581) 139 74-118 [facility] [facility] Centere[facility] or plasma calcium measurement (mass/volume)2019-12-25 06:57:00* Test Item Value Reference Range Interpretation Comments Calcium Level (test code = 52703-1) 8.3 8.4-10.2 [facility] or plasma magnesium measurement (mass/volume)2019-12-25 06:57:00* Test Item Value Reference Range Interpretation Comments Magnesium Level (test code = 68279-1) 1.9 1.3-2.1 [facility] or plasma total bilirubin measurement (mass/volume)2019-12-25 06:57:00* Test Item Value Reference Range Interpretation Comments Total Bilirubin (test code = 1975-2) 0.4 0.2-1.2 [facility] [facility] CenterFluoroscopic procedure less than one hour [id number] 06:57:00* Test Item Value Reference Range Interpretation Comments Aspartate Amino Transf (AST/SGOT) (test code = Aspartate Amino Transf (AST/SGOT)) 23 5-34 [facility] [facility] Centererum or plasma alanine aminotransferase measurement (enzymatic activity/volume)2019-12-25 06:57:00* Test Item Value Reference Range Interpretation Comments Alanine Aminotransferase (ALT/SGPT) (test code = 1742-6) 17 0-55 [facility] [facility] Centererum or plasma protein measurement (mass/volume)2019-12-25 06:57:00* Test Item Value Reference Range Interpretation Comments Total Protein (test code = 2885-2) 6.8 6.5-8.1 [facility] [facility] Centererum or plasma albumin measurement (mass/volume)2019-12-25 06:57:00* Test Item Value Reference Range Interpretation Comments Albumin (test code = 1751-7) 4.2 3.5-5.0 [facility] [facility] CenterPlasma globulin measurement (mass/volume) 2019-12-25 06:57:00* Test Item Value Reference Range Interpretation Comments Globulin (test code = 69953-9) 2.6 2.3-3.5 [facility] [facility] Centererum or plasma albumin/globulin mass [id number] 06:57:00* Test Item Value Reference Range Interpretation Comments Albumin/Globulin Ratio (test code = 1759-0) 1.6 0.8-2.0 [facility] [facility] Centererum or plasma alkaline phosphatase measurement (enzymatic activity/volume)2019-12-25 06:57:00* Test Item Value Reference Range Interpretation Comments Alkaline Phosphatase (test code = 6768-6) 70 40-150 [facility] [facility] Centererum or plasma creatine kinase measurement (enzymatic activity/volume)2019-12-25 06:57:00* Test Item Value Reference Range Interpretation Comments Creatine Kinase (test code = 2157-6) 73 29-168 [facility] [facility] Centererum or plasma creatine kinase MB measurement (mass/volume)2019-12-25 06:57:00* Test Item Value Reference Range Interpretation Comments Creatine Kinase MB (test code = 65816-5) 1.50 0-5.0 [facility] [facility] CenterTroponin I measurement by highly sensitive enzyme [id number] 06:57:00* Test Item Value Reference Range Interpretation Comments Troponin I (test code = 32081-9) 0.032 0-0.300 [facility] [facility]ere[facility] or plasma amylase measurement (enzymatic activity/volume)2019-12-25 06:57:00* Test Item Value Reference Range Interpretation Comments Amylase Level (test code = 1798-8) 47 25-125 [facility] [facility] Centererum or plasma lipase measurement (enzymatic activity/volume)2019-12-25 06:57:00* Test Item Value Reference Range Interpretation Comments Lipase (test code = 3040-3) 43 8-78 [facility] CenterBlood leukocytes automated count (number/volume)2019-12-25 06:18:00* Test Item Value Reference Range Interpretation Comments White Blood Count (test code = 6690-2) 10.23 4.8-10.8 [facility] Center[facility] erythrocytes automated count (number/volume)2019-12-25 06:18:00* Test Item Value Reference Range Interpretation Comments Red Blood Count (test code = 789-8) 3.83 3.6-5.1 [facility] Center[facility] hemoglobin measurement (moles/volume)2019-12-25 06:18:00* Test Item Value Reference Range Interpretation Comments Hemoglobin (test code = 11153-3) 12.5 12.0-16.0 [facility] [facility] CenterAutomated blood hematocrit (volume fraction)2019-12-25 06:18:00* Test Item Value Reference Range Interpretation Comments Hematocrit (test code = 4544-3) 36.9 34.2-44.1 [facility] [facility] CenterAutomated erythrocyte mean corpuscular [id number] 06:18:00* Test Item Value Reference Range Interpretation Comments Mean Corpuscular Volume (test code = 787-2) 96.3 81-99 [facility] [facility] CenterAutomated erythrocyte mean corpuscular hemoglobin (mass per erythrocyte)2019-12-25 06:18:00* Test Item Value Reference Range Interpretation Comments Mean Corpuscular Hemoglobin (test code = 785-6) 32.6 28-32 [facility] [facility] CenterAutomated erythrocyte mean corpuscular hemoglobin concentration measurement (mass/volume)2019-12-25 06:18:00* Test Item Value Reference Range Interpretation Comments Mean Corpuscular Hemoglobin Concent (test code = 786-4) 33.9 31-35 [facility] [facility] CenterRDW KqsPg-[id number] 06:18:00* Test Item Value Reference Range Interpretation Comments Red Cell Distribution Width (test code = 12373-2) 11.9 11.7 -14.4 [facility] CenterAutomated blood platelet count (count/volume)2019-12-25 06:18:00* Test Item Value Reference Range Interpretation Comments Platelet Count (test code = 777-3) 232 140-360 [facility] CenterAutomated blood segmented neutrophil count as percentage of total pjzchqmqjs4605-83-48 06:18:00* Test Item Value Reference Range Interpretation Comments Neutrophils (%) (Auto) (test code = 40203-0) 86.1 38.7-80.0 [facility] CenterAutomated blood lymphocyte count as percentage ot total lxhkeafogl3696-96-49 06:18:00* Test Item Value Reference Range Interpretation Comments Lymphocytes (%) (Auto) (test code = 736-9) 7.8 18.0-39.1 [facility] CenterAutomated blood monocyte count as percentage of total jluvwyeebi7764-21-11 06:18:00* Test Item Value Reference Range Interpretation Comments Monocytes (%) (Auto) (test code = 5905-5) 4.7 4.4-11.3 [facility] CenterAutomated blood eosinophil count as percentage of total xejhhbzbdz8063-79-62 06:18:00* Test Item Value Reference Range Interpretation Comments Eosinophils (%) (Auto) (test code = 713-8) 0.5 0.0-6.0 [facility] CenterAutomated blood basophil count as percentage of total vsvfikzieo9781-05-14 06:18:00* Test Item Value Reference Range Interpretation Comments Basophils (%) (Auto) (test code = 706-2) 0.5 0.0-1.0 [facility] CenterFluoroscopic procedure less than one hour qcrkoxew8743-40-75 06:18:00* Test Item Value Reference Range Interpretation Comments IM GRANULOCYTES % (test code = IM GRANULOCYTES %) 0.4 0.0- 1.0 [facility] CenterAutomated blood neutrophil count 2019-12-25 06:18:00* Test Item Value Reference Range Interpretation Comments Neutrophils # (Auto) (test code = 751-8) 8.8 2.1-6.9 [facility] CenterBlood lymphocytes count (number/volume) 2019-12-25 06:18:00* Test Item Value Reference Range Interpretation Comments Lymphocytes # (Auto) (test code = 43556-4) 0.8 1.0-3.2 [facility] CenterBlood monocytes automated count (number/volume)2019-12-25 06:18:00* Test Item Value Reference Range Interpretation Comments Monocytes # (Auto) (test code = 742-7) 0.5 0.2-0.8 [facility] CenterAutomated blood eosinophil count 2019-12-25 06:18:00* Test Item Value Reference Range Interpretation Comments Eosinophils # (Auto) (test code = 711-2) 0.1 0.0-0.4 [facility] CenterAutomated blood basophil count (count/volume)2019-12-25 06:18:00* Test Item Value Reference Range Interpretation Comments Basophils # (Auto) (test code = 704-7) 0.1 0.0-0.1 [facility] CenterFluoroscopic procedure less than one hour sxfjtsba0914-02-42 06:18:00* Test Item Value Reference Range Interpretation Comments Absolute Immature Granulocyte (auto (prosper t code = Absolute Immature Granulocyte (auto) 0.04 0-0.1 [facility] CenterProthrombin time (PT) in platelet poor plasma by coagulation dpruj3708-39-31 06:18:00* Test Item Value Reference Range Interpretation Comments Prothrombin Time (test code = 5902-2) 12.7 11.9-14.5 [facility] CenterINR in Platelet poor plasma by Coagulation hmyao4241-40-20 06:18:00* Test Item Value Reference Range Interpretation Comments Prothromb Time International Ratio (test code = 6301-6) 0.91 Oral Anticoagulant Therapy INR Values:1. Low Intensity Therapy 1.5 - 2.02 . Moderate Intensity Therapy 2.0 - 3.03. High Intensity Therapy(1) 2.5 - 3. 54. High Intensity Therapy(2) 3.0 - 4.05. Panic Value INR > 5.0 [facility] CenterActivated partial thromboplastin time (aPTT) in platelet poor plasma by coagulation uyrnf4319-68-32 06:18:00* Test Item Value Reference Range Interpretation Comments Activated Partial Thromboplast Time (test code = 75651-5) 33.2 23.8-35.5 [facility] CenterUrine color npawdjzlnozji0192-65-73 06:18:00* Test Item Value Reference Range Interpretation Comments Urine Color (test code = 5778-6) YELLOW YELLOW [facility] CenterUrine ufbrwji6456-25-01 06:18:00* Test Item Value Reference Range Interpretation Comments Urine Clarity (test code = 72684-1) CLEAR CLEAR [facility] Centerpecific gravity of Urine by Test strip 2019-12-25 06:18:00* Test Item Value Reference Range Interpretation Comments Urine Specific [place] (test code = 5811-5) 1.020 1.010-1.02 5 [facility] CenterUrine pH measurement by automated test bwjxe5110-36-45 06:18:00* Test Item Value Reference Range Interpretation Comments Urine pH (test code = 75718-3) 7.5 5-7 [facility] CenterUrine leukocyte esterase detection by hvalwmii9267-75-12 06:18:00* Test Item Value Reference Range Interpretation Comments Urine Leukocyte Esterase (test code = 5799-2) TRACE NEGATIVE [facility] CenterUrine nitrite bnjbrxktq8388-14-59 06:18:00* Test Item Value Reference Range Interpretation Comments Urine Nitrite (test code = 27914-6) NEGATIVE NEGATIVE [facility] CenterUrine protein measurement by test strip (mass/volume)2019-12-25 06:18:00* Test Item Value Reference Range Interpretation Comments Urine Protein (test code = 5804-0) 1+ NEGATIVE [facility] CenterUrine glucose ljiagxeie9969-89-47 06:18:00* Test Item Value Reference Range Interpretation Comments Urine Glucose (UA) (test code = 2349-9) NEGATIVE NEGATIVE [facility] CenterUrine ketones detection by automated test viova5736-04-75 06:18:00* Test Item Value Reference Range Interpretation Comments Urine Ketones (test code = 68031-1) NEGATIVE NEGATIVE [facility] CenterUrine urobilinogen measurement by test strip (mass/volume)2019-12-25 06:18:00* Test Item Value Reference Range Interpretation Comments Urine Urobilinogen (test code = 25126-1) 0.2 0.2-1 [facility] CenterUrine total bilirubin measurement (mass/volume)2019-12-25 06:18:00* Test Item Value Reference Range Interpretation Comments Urine Bilirubin (test code = 1978-6) NEGATIVE NEGATIVE [facility] CenterUrine erythrocytes hfljqvimd9026-67-03 06:18:00* Test Item Value Reference Range Interpretation Comments Urine Blood (test code = 91542-3) TRACE NEGATIVE [facility] CenterAutomated urine sediment leukocyte count by microscopy (number/high power field)2019-12-25 06:18:00* Test Item Value Reference Range Interpretation Comments Urine WBC (test code = 5821-4) 0-5 0-5 [facility] CenterErythrocytes detection in urine sediment by light zandetyigi2922-27-16 06:18:00* Test Item Value Reference Range Interpretation Comments Urine RBC (test code = 73145-6) 6-10 0-5 [facility] CenterBacteria detection in urine sediment by light thfzekwwec4754-60-24 06:18:00* Test Item Value Reference Range Interpretation Comments Urine Bacteria (test code = 49911-8) FEW NONE [facility] CenterEpithelial cells detection in urine sediment by light tmjfzbeino4868-30-97 06:18:00* Test Item Value Reference Range Interpretation Comments Urine Epithelial Cells (test code = 48696-9) RARE NONE [facility] Centererum or plasma sodium measurement (moles/volume)2019-11-08 13:25:00* Test Item Value Reference Range Interpretation Comments Sodium Level (test code = 2951-2) 142 136-145 [facility] Centererum or plasma potassium measurement (moles/volume)2019-11-08 13:25:00* Test Item Value Reference Range Interpretation Comments Potassium Level (test code = 2823-3) 3.2 3.5-5.1 [facility] Centererum or plasma chloride measurement (moles/volume)2019-11-08 13:25:00* Test Item Value Reference Range Interpretation Comments Chloride Level (test code = 2075-0) 107 98-107 [facility] Centererum or plasma carbon dioxide, total measurement (moles/volume)2019-11-08 13:25:00* Test Item Value Reference Range Interpretation Comments Carbon Dioxide Level (test code = 2028-9) 27 22-29 [facility] Centererum or plasma anion hxa1686-87-91 13:25:00* Test Item Value Reference Range Interpretation Comments Anion Gap (test code = 80126-6) 11.2 8-16 [facility] Centererum or plasma urea nitrogen measurement (mass/volume)2019-11-08 13:25:00* Test Item Value Reference Range Interpretation Comments Blood Urea Nitrogen (test code = 3094-0) 6 7-26 [facility] Centererum or plasma creatinine measurement (mass/volume)2019-11-08 13:25:00* Test Item Value Reference Range Interpretation Comments Creatinine (test code = 2160-0) 0.75 0.57-1.11 [facility] Centererum or plasma urea nitrogen/creatinine mass vaayg3416-67-71 13:25:00* Test Item Value Reference Range Interpretation Comments BUN/Creatinine Ratio (test code = 3097-3) 8 6-25 [facility] CenterEstimated glomerular filtration rate (GFR) cevxchtrmfhdw7166-62-29 13:25:00* Test Item Value Reference Range Interpretation Comments Estimat Glomerular Filtration Rate (test code = 891668488) > 60 >60 Ranges were taken from the National Kidney Disease Education Program and the [facility] literature.Reference ranges:60 or greater: Ilkikf65-14 ( for 3 consecutive months): Chronic kidney disease 15 or less: Kidney failureMemorial Hermann–[facility] Medical CenterGlucose jmybugfconu0589-87-00 13:25:00* Test Item Value Reference Range Interpretation Comments Glucose Level (test code = NRB2992) 240 74-118 [facility] Centererum or plasma calcium measurement (mass/volume)2019-11-08 13:25:00* Test Item Value Reference Range Interpretation Comments Calcium Level (test code = 16531-2) 8.9 8.4-10.2 [facility] CenterCHEST SINGLE (PORTABLE)2019-11-08 11:39:00 [facility] [address] [address] Patient Name: ROXANNA PENNY MR #: [id number] : 1940 Age/Sex: 79/F Req #: [id number] Adm Physician: Ordered by: INESSA MITTAL DO Report #: [id number] Location: ER Room/Bed: Procedure: [id number] DX/CHEST SINGLE (PORTABLE) Exam Date: 11/08/19 Exam [...] KAY on 11/08/19 1141 COPY TO: INESSA MITTAL, DO Blood leukocytes automated count (number/volume) 2019-11-08 10:44:00* Test Item Value Reference Range Interpretation Comments White Blood Count (test code = 6690-2) 8.32 4.8-10.8 [facility] CenterBlood erythrocytes automated count (number/volume)2019-11-08 10:44:00* Test Item Value Reference Range Interpretation Comments Red Blood Count (test code = 789-8) 3.83 3.6-5.1 [facility] CenterBlood hemoglobin measurement (moles/volume)2019-11-08 10:44:00* Test Item Value Reference Range Interpretation Comments Hemoglobin (test code = 81860-0) 12.3 12.0-16.0 [facility] CenterAutomated blood hematocrit (volume fraction)2019-11-08 10:44:00* Test Item Value Reference Range Interpretation Comments Hematocrit (test code = 4544-3) 37.8 34.2-44.1 [facility] CenterAutomated erythrocyte mean corpuscular pedsuy5036-63-48 10:44:00* Test Item Value Reference Range Interpretation Comments Mean Corpuscular Volume (test code = 787-2) 98.7 81-99 [facility] CenterAutomated erythrocyte mean corpuscular hemoglobin (mass per erythrocyte)2019-11-08 10:44:00* Test Item Value Reference Range Interpretation Comments Mean Corpuscular Hemoglobin (test code = 785-6) 32.1 28-32 [facility] CenterAutomated erythrocyte mean corpuscular hemoglobin concentration measurement (mass/volume)2019-11-08 10:44:00* Test Item Value Reference Range Interpretation Comments Mean Corpuscular Hemoglobin Concent (test code = 786-4) 32.5 31-35 [facility] CenterRDW ErbAq-Pga4648-88-07 10:44:00* Test Item Value Reference Range Interpretation Comments Red Cell Distribution Width (test code = 19993-3) 12.4 11.7 -14.4 [facility] CenterAutomated blood platelet count (count/volume)2019-11-08 10:44:00* Test Item Value Reference Range Interpretation Comments Platelet Count (test code = 777-3) 219 140-360 [facility] CenterAutomated blood segmented neutrophil count as percentage of total mrbgfdkxtb7308-75-70 10:44:00* Test Item Value Reference Range Interpretation Comments Neutrophils (%) (Auto) (test code = 74797-2) 72.2 38.7-80.0 [facility] CenterAutomated blood lymphocyte count as percentage ot total volzawpdba7669-21-72 10:44:00* Test Item Value Reference Range Interpretation Comments Lymphocytes (%) (Auto) (test code = 736-9) 16.3 18.0-39.1 [facility] CenterAutomated blood monocyte count as percentage of total sboeevjcdn2737-61-56 10:44:00* Test Item Value Reference Range Interpretation Comments Monocytes (%) (Auto) (test code = 5905-5) 8.1 4.4-11.3 [facility] CenterAutomated blood eosinophil count as percentage of total kdwveshoqj1065-13-88 10:44:00* Test Item Value Reference Range Interpretation Comments Eosinophils (%) (Auto) (test code = 713-8) 2.5 0.0-6.0 [facility] CenterAutomated blood basophil count as percentage of total wrqieavyvz6849-70-95 10:44:00* Test Item Value Reference Range Interpretation Comments Basophils (%) (Auto) (test code = 706-2) 0.7 0.0-1.0 [facility] CenterFluoroscopic procedure less than one hour snuqrpnj2092-71-11 10:44:00* Test Item Value Reference Range Interpretation Comments IM GRANULOCYTES % (test code = IM GRANULOCYTES %) 0.2 0.0- 1.0 [facility] CenterAutomated blood neutrophil count 2019-11-08 10:44:00* Test Item Value Reference Range Interpretation Comments Neutrophils # (Auto) (test code = 751-8) 6.0 2.1-6.9 [facility] CenterBlood lymphocytes count (number/volume) 2019-11-08 10:44:00* Test Item Value Reference Range Interpretation Comments Lymphocytes # (Auto) (test code = 78374-5) 1.4 1.0-3.2 [facility] CenterBlood monocytes automated count (number/volume)2019-11-08 10:44:00* Test Item Value Reference Range Interpretation Comments Monocytes # (Auto) (test code = 742-7) 0.7 0.2-0.8 [facility] CenterAutomated blood eosinophil count 2019-11-08 10:44:00* Test Item Value Reference Range Interpretation Comments Eosinophils # (Auto) (test code = 711-2) 0.2 0.0-0.4 [facility] CenterAutomated blood basophil count (count/volume)2019-11-08 10:44:00* Test Item Value Reference Range Interpretation Comments Basophils # (Auto) (test code = 704-7) 0.1 0.0-0.1 [facility] CenterFluoroscopic procedure less than one hour qulqvzgn3567-45-57 10:44:00* Test Item Value Reference Range Interpretation Comments Absolute Immature Granulocyte (auto (prosper t code = Absolute Immature Granulocyte (auto) 0.02 0-0.1 [facility] Centererum or plasma total bilirubin measurement (mass/volume)2019-11-08 10:44:00* Test Item Value Reference Range Interpretation Comments Total Bilirubin (test code = 1975-2) 0.4 0.2-1.2 [facility] CenterFluoroscopic procedure less than one hour aikbuaic6957-20-33 10:44:00* Test Item Value Reference Range Interpretation Comments Aspartate Amino Transf (AST/SGOT) (test code = Aspartate Amino Transf (AST/SGOT)) 24 5-34 [facility] Centererum or plasma alanine aminotransferase measurement (enzymatic activity/volume)2019-11-08 10:44:00* Test Item Value Reference Range Interpretation Comments Alanine Aminotransferase (ALT/SGPT) (test code = 1742-6) 20 0-55 [facility] Centererum or plasma protein measurement (mass/volume)2019-11-08 10:44:00* Test Item Value Reference Range Interpretation Comments Total Protein (test code = 2885-2) 7.6 6.5-8.1 [facility] Centererum or plasma albumin measurement (mass/volume)2019-11-08 10:44:00* Test Item Value Reference Range Interpretation Comments Albumin (test code = 1751-7) 4.3 3.5-5.0 [facility] CenterPlasma globulin measurement (mass/volume) 2019-11-08 10:44:00* Test Item Value Reference Range Interpretation Comments Globulin (test code = 50728-2) 3.3 2.3-3.5 [facility] Centererum or plasma albumin/globulin mass vysuh4889-75-13 10:44:00* Test Item Value Reference Range Interpretation Comments Albumin/Globulin Ratio (test code = 1759-0) 1.3 0.8-2.0 [facility] Centererum or plasma alkaline phosphatase measurement (enzymatic activity/volume)2019-11-08 10:44:00* Test Item Value Reference Range Interpretation Comments Alkaline Phosphatase (test code = 6768-6) 71 40-150 [facility] Centererum or plasma triglyceride measurement (mass/volume)2019-11-08 10:44:00* Test Item Value Reference Range Interpretation Comments Triglycerides Level (test code = 2571-8) 82 0-149 [facility] Centererum or plasma cholesterol measurement (mass/volume)2019-11-08 10:44:00* Test Item Value Reference Range Interpretation Comments Cholesterol Level (test code = 2093-3) 94 0-199 Less than 200 mg/dL Low Sgqh269 - 239 mg/dL Borderline Lsjw403 m g/dl and greater High Risk [facility] Centererum or plasma cholesterol in LDL measurement (mass/volume) 2019-11-08 10:44:00* Test Item Value Reference Range Interpretation Comments LDL Cholesterol (test code = 2089-1) 45 60-130 [facility] Centererum or plasma cholesterol in HDL measurement (mass/volume)2019-11-08 10:44:00* Test Item Value Reference Range Interpretation Comments HDL Cholesterol (test code = 2085-9) 33 40-60 [facility] Centererum or plasma total cholesterol/cholesterol in HDL mass voeax6380-28-89 10:44:00* Test Item Value Reference Range Interpretation Comments Cholesterol/HDL Ratio (test code = 9830-1) 2.8 3.0-3.6 [facility] Centererum or plasma creatine kinase measurement (enzymatic activity/volume)2019-11-08 10:44:00* Test Item Value Reference Range Interpretation Comments Creatine Kinase (test code = 2157-6) 77 29-168 [facility] Centererum or plasma creatine kinase MB measurement (mass/volume)2019-11-08 10:44:00* Test Item Value Reference Range Interpretation Comments Creatine Kinase MB (test code = 04954-5) 1.20 0-5.0 [facility] CenterTroponin I measurement by highly sensitive enzyme tgagxjqdpcp0628-18-37 10:44:00* Test Item Value Reference Range Interpretation Comments Troponin I (test code = 32345-5) < 0.001 0-0.300 [facility] Centererum or plasma triglyceride measurement (mass/volume)2019-11-08 10:44:00* Test Item Value Reference Range Interpretation Comments Triglycerides Level (test code = 2571-8) 82 0-149 [facility] Centererum or plasma cholesterol measurement (mass/volume)2019-11-08 10:44:00* Test Item Value Reference Range Interpretation Comments Cholesterol Level (test code = 2093-3) 94 0-199 Less than 200 mg/dL Low Wsxu095 - 239 mg/dL Borderline Etym790 m g/dl and greater High Risk [facility] Centererum or plasma cholesterol in LDL measurement (mass/volume) 2019-11-08 10:44:00* Test Item Value Reference Range Interpretation Comments LDL Cholesterol (test code = 2089-1) 45 60-130 [facility] Centererum or plasma cholesterol in HDL measurement (mass/volume)2019-11-08 10:44:00* Test Item Value Reference Range Interpretation Comments HDL Cholesterol (test code = 2085-9) 33 40-60 [facility] Centererum or plasma total cholesterol/cholesterol in HDL mass ydvny6072-15-03 10:44:00* Test Item Value Reference Range Interpretation Comments Cholesterol/HDL Ratio (test code = 9830-1) 2.8 3.0-3.6 [facility] METABOLIC PBOYZ9085-01-22 12:09:00 * Test Item Value Reference Range [...] CA) 8.8 mg/dL 8.5-10.1 N BASIC METABOLIC PYYWA0516-32-97 12:04:00* Test Item Value Reference Range Interpretation [...] code = CA) mg/dL 8.5-10.1 CBC W/O CINJ4330-10-80 11:46:00* Test Item Value Reference Range Interpretation [...] MPV) 10.8 fL 6.7-11.0 N CBC W/O XWTL6298-06-79 11:45:00* Test Item Value Reference Range Interpretation [...] MPV) fL 6.7-11.0 - XR UGI DBL OXZIFBLE4116-64-82 13:56:00 FAX: Anuel Rivers MD [phone] [place]: [address] St: REG Name: GEOFF MCNULTY [facility] : [birth year] Age/S: 79/F [address] Unit [facility]: [id number] Loc: [place] [address] Phys: Diana Lees MD Acct: [id number] Dis Date: Status: REG CLI PHONE #: [phone] Exam Date: 09/18/2019 1050 FAX #: [phone] Reason: VOMITING EXAMS: CPT CODE: [id number] XR UGI DBL CONTRAST 11889 REASON FOR EXAM: VOMITING Exam Order Date: 09/18/2019 12:00 AM Ordering: Diana Lees MD Attending:Diana Lees MD Location:[facility] CEDURE: Upper GI examination FINDINGS: The patient was brought to radiology and placed in the right lateral decubitus position on the table. The haul driver radiograph shows scattered small bowel gas without [...] Technologist: SAIDA LANTIGUA RT(R) Trnscrd Date/Time/By: 09/18/2019 (4604) : By: KristelVT L Orig Print D/T: S: 09/18/2019 (9729) PAGE 1 Signed Report TROPONIN-I 2019-07-25 13:59:00* Test Item Value Reference Range Interpretation Comments TROPONIN-I (test code = TROPI) 0.098 ng/mL 0-0.045 HH Results called to [id number] by [email or web address] 07/25/19 1359Critical results verified and [...] This LDL result is a direct measurement.========= RTIFQMGR-M4782-72-23 08:35:00* Test Item Value Reference Range Interpretation Comments TROPONIN-I (test code = TROPI) 0.179 ng/mL 0-0.045 HH Results called to [id number] by [email or web address] 07/25/19 0834Critical results verified and read back by Nurse? 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 Y COMMENTS TO GAS LEAK INSPECTOR HELPER: COLLECT 3 HOURS AFTER PREVIOUS SAMPLE- CTA VYBOX2169-42-95 01:41:00 Name: EGOFF PENNY [facility] : 1940 Age/S: 79 / F [address] [facility] Unit #: [id number] Loc: [place] [address] Phys: Tejas Duran MD Acct: [id number] Dis Date: Status: ADM IN PHONE #: [phone] Exam Date: 07/24/20192214 FAX #: [phone] Reason: chest pain shortness of breath EXAMS: CPT CODE: [id number] CTA CHEST 97631 EXAM: -CTA Chest , CT ABD PELVIS [...] 1 Signed Report (C ONTINUED) [facility] 1940 Age/S: 79 / F [address] it #: [id number] Loc: [place] [address] Phys: Tejas Duran MD Acct: [id number] Dis Date: Status: ADM IN PHONE #: [phone] Exam Date: 07/24/20192214 FAX #: [phone] Reason: chest pain shortness of breath E XAMS: CPT CODE: [id number] CTA CHEST 54371 <Continued> at 0141 Reported and signed by: Titi Andrews MD CC: Tejas Duran MD Te chnologist:Nannette Muro RT(R); ESTEVAN Mcgovern CTDI: DLP: Trnscb Date/ Time: 07/25/2019 (014) [email or web address] Orig Print D/T: S: 07/03 (0144) PAGE 2 Signed Report - CT ABD PELVIS W/WUDD5674-80-13 01:12:00 Name: GEOFF PENNY [facility] : 1940 Age/S: 79 / F [address] Unit #: [id number] Loc: [place] [address] Phys: Tejas Duran MD Acct: [id number] Dis Date: Status: ADM IN PHONE #: [phone] Exam Date: 07/24/20192214 FAX #: [phone] Reason: abd pain h/o aneurysm Report Has Been Amended EXAMS: CPT CODE: [id number] CT ABD PELVIS W/CONT 04251 Addendum - 07/25/2019 SIGNED 07/25/2019 ADDENDUM: [id number] CT/CTABPLW These findings were discussed with Dr. Velásquez in ED at 10:50 PM. at 0112 Reported and signed by: Titi Andrews MD Transcribed: 07/25/2019 (0112) [email or web address] Report EXAM: -CTA Chest , CT [...] 1 Signed Report (CONTINUED) Name: GEOFF PENNY [facility] : 1940 Age/S: 79 / F [address] Unit #: [id number] Loc: [place] [address] Phys: Tejas Duran MD Acct: [id number] Dis Date: Status: ADM IN PHONE #: [phone] Exam Date: 07/24/2019 221 5 FAX #: [phone] Reason: abd pain h/o aneurysm Report Has Been Amended EXAMS: CPT CODE: [id number] CT ABD PELVIS W/CONT 28802 <Continued> significant abnormalities. The appendix has a [...] Mcgovern CTDI: DLP: Trnscb Date/ Time: 07/24/2019 (2258) [email or web address] Orig Print D/T: S: 07/03 (0498) PAGE 2 Signed Report - CT ABD PELVIS W/JJVO7031-96-10 22:59:00 Name: GEOFF PENNY [facility] : 1940 Age/S: 79 / F [address] [facility] Unit #: [id number] Loc: [place] [address] Phys: Tejas Duran MD Acct: [id number] Dis Date: Status: REG ER PHONE #: [phone] Exam Date: 07/24/20192214 FAX #: [phone] Reason: abd pain h/o aneurysm EXAMS: CPT CODE: [id number] CT ABD PELVIS W/CONT 26543 EXAM: -CTA Chest , CT ABD PELVIS W/CONT HISTORY: Pain. TECHNIQUE: Axial tomograms through the chest, abdomen and pelvis were obtained after intravenous contrast. Coronal and sagittal reformatted images are provided. This exam was performed according to our departmental dose-optimization program, which includes automated exposure control, adjustment of the mA and/or kV according to patient size and/or use of iterative reconstruction pamela david. COMPARISON: December 06, 2012. FINDINGS: There is [...] 1 Signed Report (CONTINUED) Name: GEOFF PENNY [facility] : 1940 Age/S: 79 / F [address] [facility] Unit #: [id number] Loc: [place] [address] Phys: Tejas Duran MD Acct: [id number] Dis Date: Status: REG ER PHONE #: [phone] Exa m Date: 07/24/20192214 FAX #: [phone] Reason: ab d pain h/o aneurysm EXAMS: CPT CODE: [id number] CT ABD PELVIS W/CONT 69585 <Continued> at 2259 Reported and signed by: Titi Andrews MD CC: Tejas Duran MD Technologist:Nannette Muro RT(R); ESTEVAN Mcgovern CTDI: DLP: Trnscb Date/Time: 07/24/2019 (697) [email or web address] Orig Print D/T: S: 07/24/2019 (3644) PAGE 2 Signed Report B- TYPE NATRIURETIC FFJINIS1090-10-05 21:07:00* Test Item Value Reference Range Interpretation Comments B-TYPE NATRIURETIC PEPTIDE (test code = BNP) 49.53 pgram/mL 0-100 N BASIC METABOLIC KWWMI3223-27-56 21:01:00* Test Item Value Reference Range Interpretation [...] code = CA) 8.8 mg/dL 8.5-10.1 N ZZXZWIOA-H8260-84-22 21:01:00* Test Item Value Reference Range Interpretation Comments TROPONIN-I (test code = TROPI) <0.015 ng/mL 0-0.045 N BASIC METABOLIC SDMLP6747-24-39 20:50:00* Test Item Value Reference Range Interpretation [...] CALCIUM (test code = CA) mg/dL 8.5-10.1 NVOQCJRT-P9136-53-22 20:50:00* Test Item Value Reference Range Interpretation Comments TROPONIN-I (test code = TROPI) ng/mL 0-0.045 CBC W/O XEBV9871-32-71 20:37:00* Test Item Value Reference Range Interpretation [...] code = MPV) fL 6.7-11.0 CBC W/O NHJB5768-42-44 20:37:00* Test Item Value Reference Range Interpretation [...] fL 6.7-11.0 N - XR CHEST 1 [id number] 20:21:00 FAX: Tejas Duran MD [phone] [place]: B St: REG Name: GEOFF MCNULTY [facility] : [birth year] Age/S: 79/F Manny Guerrero Unit #: [id number] Loc: [place] [address] Phys: Tejas Duran MD Acct: [id number] Dis Date: Status: REG ER PHONE #: [phone] Exam Date: 07/24/20192014 FAX #: [phone] Reason: Shortness of Breath EXAMS: CPT CODE: [id number] XR CHEST 1 V 70051 REASON FOR EXAM: Shortness of Breath Exam [...] MD CC: Tejas Duran MD Technologist: Nish Matta RT(R; Rae Rush RT(R) Trnscrd Date/Time/By: 07/24/2019 (2020) : By: deepika [email or web address] Orig Print D/T: S: 07/24/2019 (2024) P AGE 1 Signed Report Creatine Kinase [id number] 10:57:00* Test Item Value Reference Range Interpretation Comments Creatine Kinase MB (test code = 57124-7) 1.50 0-5.0 [facility] CenterTroponin [id number] 10:57:00* Test Item Value Reference Range Interpretation Comments Troponin I (test code = AFP2090) 0.008 0-0.300 [facility] CenterCHEST SINGLE (PORTABLE)2019-02-02 10:54:00 [facility] [address] [place] [address] Patient Name: ROXANNA PENNY MR #: [id number] : 1940 Age/Sex: 79/F Req #: [id number] Adm Physician: Ordered by: YAMILA SANDRA MD Report #: [id number] Location: ER Room/Bed: Procedure: [id number] D X/CHEST SINGLE (PORTABLE) Exam Date: 02/02/19 [...] AM Dictated By: RICHARD MELÉNDEZ MD, MD 105 Transcribed By: MARY KAY on 02/02/19 1056 COPY TO: YAMILA SANDRA MD Sodium Njqsw5946-51-38 10:52:00* Test Item Value Reference Range Interpretation Comments Sodium Level (test code = 2951-2) 137 136-145 [facility] CenterPotassium Kgrst0132-98-12 10:52:00* Test Item Value Reference Range Interpretation Comments Potassium Level (test code = 2823-3) 3.4 3.5-5.1 L [facility] CenterChloride Ctulu9717-99-86 10:52:00* Test Item Value Reference Range Interpretation Comments Chloride Level (test code = 2075-0) 98 98-107 [facility] CenterCarbon Dioxide Watlm1914-42-98 10:52:00* Test Item Value Reference Range Interpretation Comments Carbon Dioxide Level (test code = 2028-9) 30 22-29 H [facility] CenterAnion Enl3247-33-00 10:52:00* Test Item Value Reference Range Interpretation Comments Anion Gap (test code = 84480-7) 12.4 8-16 [facility] CenterBlood Urea Jaxayrwt5774-96-58 10:52:00* Test Item Value Reference Range Interpretation Comments Blood Urea Nitrogen (test code = 3094-0) 12 7-26 [facility] CenterCreatinine2019-11-02 10:52:00* Test Item Value Reference Range Interpretation Comments Creatinine (test code = 2160-0) 0.73 0.57-1.11 [facility] CenterBUN/Creatinine Vyosg8291-43-23 10:52:00* Test Item Value Reference Range Interpretation Comments BUN/Creatinine Ratio (test code = 3097-3) 16 6-25 [facility] CenterEstimat Glomerular Filtration Rate 2019-02-02 10:52:00* Test Item Value Reference Range Interpretation Comments Estimat Glomerular Filtration Rate (test code = 536829294) > 60 >60 Ranges were taken from the National Kidney Disease Education Program and the [facility] literature.Reference ranges:60 or greater: Xasigx55-36 ( for 3 consecutive months): Chronic kidney disease 15 or less: Kidney failureMemorial Hermann–Texas Medical CenterGlucose Vqwtl8610-58-15 10:52:00* Test Item Value Reference Range Interpretation Comments Glucose Level (test code = IPP9634) 97 74-118 [facility] CenterCalcium Dwlui9619-21-21 10:52:00* Test Item Value Reference Range Interpretation Comments Calcium Level (test code = 55333-2) 9.5 8.4-10.2 [facility] CenterMagnesium Zgrel2905-13-79 10:52:00* Test Item Value Reference Range Interpretation Comments Magnesium Level (test code = 12643-2) 1.8 1.3-2.1 [facility] CenterTotal Wmrsczlat1854-74-01 10:52:00* Test Item Value Reference Range Interpretation Comments Total Bilirubin (test code = 1975-2) 0.5 0.2-1.2 [facility] CenterAspartate Amino Transf (AST/SGOT) 2019-02-02 10:52:00* Test Item Value Reference Range Interpretation Comments Aspartate Amino Transf (AST/SGOT) (test code = Aspartate Amino Transf (AST/SGOT)) 24 5-34 [facility] CenterAlanine Aminotransferase (ALT/SGPT) 2019-02-02 10:52:00* Test Item Value Reference Range Interpretation Comments Alanine Aminotransferase (ALT/SGPT) (test code = 1742-6) 19 0-55 [facility] CenterTotal Txbrezc7499-66-31 10:52:00* Test Item Value Reference Range Interpretation Comments Total Protein (test code = 2885-2) 7.4 6.5-8.1 [facility] CenterAlbumin2019-11-02 10:52:00* Test Item Value Reference Range Interpretation Comments Albumin (test code = 1751-7) 4.2 3.5-5.0 [facility] CenterGlobulin2019-11-02 10:52:00* Test Item Value Reference Range Interpretation Comments Globulin (test code = 96932-1) 3.2 2.3-3.5 [facility] CenterAlbumin/Globulin Ofqie1845-67-42 10:52:00 * Test Item Value Reference Range Interpretation Comments Albumin/Globulin Ratio (test code = 1759-0) 1.3 0.8-2.0 [facility] CenterAlkaline Ahlilvrhzvy1834-21-64 10:52:00* Test Item Value Reference Range Interpretation Comments Alkaline Phosphatase (test code = 6768-6) 72 40-150 [facility] CenterCreatine Lgvqfl8562-04-68 10:52:00* Test Item Value Reference Range Interpretation Comments Creatine Kinase (test code = 2157-6) 76 29-168 [facility] CenterUrine MRV9245-08-09 10:40:00* Test Item Value Reference Range Interpretation Comments Urine WBC (test code = 5821-4) 0-5 0-5 [facility] CenterUrine YDY9707-59-85 10:40:00* Test Item Value Reference Range Interpretation Comments Urine RBC (test code = 77892-9) 0-5 0-5 [facility] CenterUrine Qkkamrim5259-73-27 10:40:00* Test Item Value Reference Range Interpretation Comments Urine Bacteria (test code = 19318-1) NONE NONE [facility] CenterUrine Epithelial Nuvrm2970-08-83 10:40:00 * Test Item Value Reference Range Interpretation Comments Urine Epithelial Cells (test code = 02631-5) FEW NONE [facility] CenterWhite Blood Pvnwx1096-01-08 10:29:00* Test Item Value Reference Range Interpretation Comments White Blood Count (test code = 6690-2) 10.89 4.8-10.8 H [facility] CenterRed Blood Tlolo6450-08-26 10:29:00* Test Item Value Reference Range Interpretation Comments Red Blood Count (test code = 789-8) 3.85 3.6-5.1 [facility] CenterHemoglobin2019-11-02 10:29:00* Test Item Value Reference Range Interpretation Comments Hemoglobin (test code = 41874-7) 12.7 12.0-16.0 [facility] CenterHematocrit2019-11-02 10:29:00* Test Item Value Reference Range Interpretation Comments Hematocrit (test code = 4544-3) 37.6 34.2-44.1 [facility] CenterMean Corpuscular Ertlvf1962-78-55 10:29:00* Test Item Value Reference Range Interpretation Comments Mean Corpuscular Volume (test code = 787-2) 97.7 81-99 [facility] CenterMean Corpuscular Sqrenusizn5782-53-17 10:29:00* Test Item Value Reference Range Interpretation Comments Mean Corpuscular Hemoglobin (test code = 785-6) 33.0 28-32 H [facility] CenterMean Corpuscular Hemoglobin Concent 2019-02-02 10:29:00* Test Item Value Reference Range Interpretation Comments Mean Corpuscular Hemoglobin Concent (test code = 786-4) 33.8 31-35 [facility] CenterRed Cell Distribution Dxnfm1042-35-47 10:29:00* Test Item Value Reference Range Interpretation Comments Red Cell Distribution Width (test code = 42973-2) 12.0 11.7 -14.4 [facility] CenterPlatelet Hcjaf7596-27-44 10:29:00* Test Item Value Reference Range Interpretation Comments Platelet Count (test code = 777-3) 234 140-360 [facility] CenterNeutrophils (%) (Auto)2019-02-02 10:29:00 * Test Item Value Reference Range Interpretation Comments Neutrophils (%) (Auto) (test code = 65425-5) 82.6 38.7-80.0 H [facility] CenterLymphocytes (%) (Auto)2019-02-02 10:29:00 * Test Item Value Reference Range Interpretation Comments Lymphocytes (%) (Auto) (test code = 736-9) 10.5 18.0-39.1 L [facility] CenterMonocytes (%) (Auto)2019-02-02 10:29:00* Test Item Value Reference Range Interpretation Comments Monocytes (%) (Auto) (test code = 5905-5) 5.6 4.4-11.3 [facility] CenterEosinophils (%) (Auto)2019-02-02 10:29:00 * Test Item Value Reference Range Interpretation Comments Eosinophils (%) (Auto) (test code = 713-8) 0.6 0.0-6.0 [facility] CenterBasophils (%) (Auto)2019-02-02 10:29:00* Test Item Value Reference Range Interpretation Comments Basophils (%) (Auto) (test code = 706-2) 0.4 0.0-1.0 [facility] CenterIM GRANULOCYTES %2019-02-02 10:29:00* Test Item Value Reference Range Interpretation Comments IM GRANULOCYTES % (test code = IM GRANULOCYTES %) 0.3 0.0- 1.0 [facility] CenterNeutrophils # (Auto)2019-02-02 10:29:00* Test Item Value Reference Range Interpretation Comments Neutrophils # (Auto) (test code = 751-8) 9.0 2.1-6.9 H [facility] CenterLymphocytes # (Auto)2019-02-02 10:29:00* Test Item Value Reference Range Interpretation Comments Lymphocytes # (Auto) (test code = 30447-3) 1.1 1.0-3.2 [facility] CenterMonocytes # (Auto)2019-02-02 10:29:00* Test Item Value Reference Range Interpretation Comments Monocytes # (Auto) (test code = 742-7) 0.6 0.2-0.8 [facility] CenterEosinophils # (Auto)2019-02-02 10:29:00* Test Item Value Reference Range Interpretation Comments Eosinophils # (Auto) (test code = 711-2) 0.1 0.0-0.4 [facility] CenterBasophils # (Auto)2019-02-02 10:29:00* Test Item Value Reference Range Interpretation Comments Basophils # (Auto) (test code = 704-7) 0.0 0.0-0.1 [facility] CenterAbsolute Immature Granulocyte (auto 2019-02-02 10:29:00* Test Item Value Reference Range Interpretation Comments Absolute Immature Granulocyte (auto (prosper t code = Absolute Immature Granulocyte (auto) 0.03 0-0.1 [facility] CenterUrine Bcxhz9733-12-44 10:29:00* Test Item Value Reference Range Interpretation Comments Urine Color (test code = 5778-6) YELLOW YELLOW [facility] CenterUrine Lmbygwp5339-22-46 10:29:00* Test Item Value Reference Range Interpretation Comments Urine Clarity (test code = 49815-1) CLEAR CLEAR [facility] Specific Xqyfohv4209-16-99 10:29:00 * Test Item Value Reference Range Interpretation Comments Urine Specific [place] (test code = 5811-5) <=1.005 1.010-1.02 5 [facility] CenterUrine kL2471-57-68 10:29:00* Test Item Value Reference Range Interpretation Comments Urine pH (test code = 52664-4) 7 5-7 [facility] Leukocyte Yxhrdrnc4925-97-67 10:29:00* Test Item Value Reference Range Interpretation Comments Urine Leukocyte Esterase (test code = 57551-4) TRACE NEGATIV E H [facility] CenterUrine Cqhywrq0265-60-20 10:29:00* Test Item Value Reference Range Interpretation Comments Urine Nitrite (test code = 54168-3) NEGATIVE NEGATIVE [facility] CenterUrine Grabdpf0132-36-96 10:29:00* Test Item Value Reference Range Interpretation Comments Urine Protein (test code = 77885-4) NEGATIVE NEGATIVE [facility] CenterUrine Glucose (UA)2019-02-02 10:29:00* Test Item Value Reference Range Interpretation Comments Urine Glucose (UA) (test code = 05764-7) NEGATIVE NEGATIVE [facility] Fhratrk8815-39-25 10:29:00* Test Item Value Reference Range Interpretation Comments Urine Ketones (test code = 68340-8) NEGATIVE NEGATIVE [facility] Flfjpeyqfjdz3681-06-28 10:29:00* Test Item Value Reference Range Interpretation Comments Urine Urobilinogen (test code = 25274-9) 0.2 0.2-1 [facility] CenterUrine Hrqkbecbh7053-84-16 10:29:00* Test Item Value Reference Range Interpretation Comments Urine Bilirubin (test code = 1977-8) NEGATIVE NEGATIVE [facility] CenterUrine Qlhjv9285-61-29 10:29:00* Test Item Value Reference Range Interpretation Comments Urine Blood (test code = 96517-5) 1+ NEGATIVE [facility] CenterUrine color ikddcrgpzzjqu1410-01-02 09:38:00* Test Item Value Reference Range Interpretation Comments Urine Color (test code = 5778-6) YELLOW YELLOW [facility] CenterUrine txwjvfo6467-07-22 09:38:00* Test Item Value Reference Range Interpretation Comments Urine Clarity (test code = 36206-7) CLEAR CLEAR [facility] Centerpecific gravity of Urine by Test strip 2019-02-02 09:38:00* Test Item Value Reference Range Interpretation Comments Urine Specific [place] (test code = 5811-5) <=1.005 1.010-1.02 5 [facility] CenterUrine pH measurement by automated test whdbe2704-91-50 09:38:00* Test Item Value Reference Range Interpretation Comments Urine pH (test code = 67700-8) 7 5-7 [facility] CenterUrine leukocyte esterase detection by automated test rgmaj4736-03-59 09:38:00* Test Item Value Reference Range Interpretation Comments Urine Leukocyte Esterase (test code = 84347-3) TRACE NEGATIV E [facility] CenterUrine nitrite detection by automated test ftgcs3254-47-90 09:38:00* Test Item Value Reference Range Interpretation Comments Urine Nitrite (test code = 26477-1) NEGATIVE NEGATIVE [facility] CenterUrine protein detection by automated test kszfg4397-44-52 09:38:00* Test Item Value Reference Range Interpretation Comments Urine Protein (test code = 67855-7) NEGATIVE NEGATIVE [facility] CenterUrine glucose detection by automated test hylnj6484-87-38 09:38:00* Test Item Value Reference Range Interpretation Comments Urine Glucose (UA) (test code = 13342-2) NEGATIVE NEGATIVE [facility] CenterUrine ketones detection by automated test yfhxm3152-58-04 09:38:00* Test Item Value Reference Range Interpretation Comments Urine Ketones (test code = 62204-0) NEGATIVE NEGATIVE [facility] CenterUrine urobilinogen measurement by test strip (mass/volume)2019-02-02 09:38:00* Test Item Value Reference Range Interpretation Comments Urine Urobilinogen (test code = 96759-0) 0.2 0.2-1 [facility] CenterUrine total bilirubin rvyrxvihf3751-58-07 09:38:00* Test Item Value Reference Range Interpretation Comments Urine Bilirubin (test code = 1977-8) NEGATIVE NEGATIVE [facility] CenterUrine erythrocytes qdernpbyk5027-06-04 09:38:00* Test Item Value Reference Range Interpretation Comments Urine Blood (test code = 73561-5) 1+ NEGATIVE [facility] CenterAutomated urine sediment leukocyte count by microscopy (number/high power field)2019-02-02 09:38:00* Test Item Value Reference Range Interpretation Comments Urine WBC (test code = 5821-4) 0-5 0-5 [facility] CenterErythrocytes detection in urine sediment by light ayrphibilo9160-35-40 09:38:00* Test Item Value Reference Range Interpretation Comments Urine RBC (test code = 83217-7) 0-5 0-5 [facility] CenterBacteria detection in urine sediment by light loldyjcxmx3175-88-43 09:38:00* Test Item Value Reference Range Interpretation Comments Urine Bacteria (test code = 13194-9) NONE NONE [facility] CenterEpithelial cells detection in urine sediment by light sgkzhinlpe0369-90-46 09:38:00* Test Item Value Reference Range Interpretation Comments Urine Epithelial Cells (test code = 24538-6) FEW NONE [facility] Centererum or plasma magnesium measurement (mass/volume)2019-02-02 09:38:00* Test Item Value Reference Range Interpretation Comments Magnesium Level (test code = 01143-1) 1.8 1.3-2.1 [facility] CenterWhite Blood Nrwgu1370-68-22 06:24:00* Test Item Value Reference Range Interpretation Comments White Blood Count (test code = 6690-2) 15.38 4.8-10.8 H [facility] CenterRed Blood Pjvks6869-01-63 06:24:00* Test Item Value Reference Range Interpretation Comments Red Blood Count (test code = 789-8) 3.28 3.6-5.1 L [facility] CenterHemoglobin2018-09-14 06:24:00* Test Item Value Reference Range Interpretation Comments Hemoglobin (test code = 59968-4) 10.7 12.0-16.0 L [facility] CenterHematocrit2018-09-14 06:24:00* Test Item Value Reference Range Interpretation Comments Hematocrit (test code = 4544-3) 33.0 34.2-44.1 L [facility] CenterMean Corpuscular Uihcgm4229-67-14 06:24:00* Test Item Value Reference Range Interpretation Comments Mean Corpuscular Volume (test code = 787-2) 100.6 81-99 H [facility] CenterMean Corpuscular Vvlorapstt1035-33-59 06:24:00* Test Item Value Reference Range Interpretation Comments Mean Corpuscular Hemoglobin (test code = 785-6) 32.6 28-32 [facility]an Corpuscular Hemoglobin Concent 2017-12-15 06:24:00* Test Item Value Reference Range Interpretation Comments Mean Corpuscular Hemoglobin Concent (test code = 786-4) 32.4 31-35 [facility] CenterRed Cell Distribution Iwwro1100-36-55 06:24:00* Test Item Value Reference Range Interpretation Comments Red Cell Distribution Width (test code = 53011-5) 11.9 11.7 -14.4 [facility] CenterPlatelet Jbohg5103-74-39 06:24:00* Test Item Value Reference Range Interpretation Comments Platelet Count (test code = 777-3) 194 140-360 [facility] CenterNeutrophils (%) (Auto)2017-12-15 06:24:00 * Test Item Value Reference Range Interpretation Comments Neutrophils (%) (Auto) (test code = 64978-3) 88.8 38.7-80.0 H [facility] CenterLymphocytes (%) (Auto)2017-12-15 06:24:00 * Test Item Value Reference Range Interpretation Comments Lymphocytes (%) (Auto) (test code = 736-9) 4.5 18.0-39.1 L [facility] CenterMonocytes (%) (Auto)2017-12-15 06:24:00* Test Item Value Reference Range Interpretation Comments Monocytes (%) (Auto) (test code = 5905-5) 6.0 4.4-11.3 [facility] CenterEosinophils (%) (Auto)2017-12-15 06:24:00 * Test Item Value Reference Range Interpretation Comments Eosinophils (%) (Auto) (test code = 713-8) 0.0 0.0-6.0 [facility] CenterBasophils (%) (Auto)2017-12-15 06:24:00* Test Item Value Reference Range Interpretation Comments Basophils (%) (Auto) (test code = 706-2) 0.2 0.0-1.0 [facility] CenterIM GRANULOCYTES %2017-12-15 06:24:00* Test Item Value Reference Range Interpretation Comments IM GRANULOCYTES % (test code = IM GRANULOCYTES %) 0.5 0.0- 1.0 [facility] CenterNeutrophils # (Auto)2017-12-15 06:24:00* Test Item Value Reference Range Interpretation Comments Neutrophils # (Auto) (test code = 751-8) 13.7 2.1-6.9 H [facility] CenterLymphocytes # (Auto)2017-12-15 06:24:00* Test Item Value Reference Range Interpretation Comments Lymphocytes # (Auto) (test code = 20449-0) 0.7 1.0-3.2 L [facility] CenterMonocytes # (Auto)2017-12-15 06:24:00* Test Item Value Reference Range Interpretation Comments Monocytes # (Auto) (test code = 742-7) 0.9 0.2-0.8 H [facility] CenterEosinophils # (Auto)2017-12-15 06:24:00* Test Item Value Reference Range Interpretation Comments Eosinophils # (Auto) (test code = 711-2) 0.0 0.0-0.4 [facility] CenterBasophils # (Auto)2017-12-15 06:24:00* Test Item Value Reference Range Interpretation Comments Basophils # (Auto) (test code = 704-7) 0.0 0.0-0.1 [facility] CenterAbsolute Immature Granulocyte (auto 2017-12-15 06:24:00* Test Item Value Reference Range Interpretation Comments Absolute Immature Granulocyte (auto (prosper t code = Absolute Immature Granulocyte (auto) 0.07 0-0.1 [facility] CenterCHEST 2 PCBWG4929-42-72 12:05:00 [place] [address] Patient Name: ROXANNA PENNY MR #: [id number] : 1940 Age/Sex: 77/F Req #: [id number] Adm Physician: Ordered by: DIANA LEES MD Report #: [id number] Location: OR Room/Bed: Procedure: [id number] DX/CHEST 2 VIEWS Exam Date: 12/12/17 Exam [...] MD 06 Transcribed By: MARY KAY on 12/12/177 COPY TO : DIANA LEES MD Sodium Lnibw8298-96-39 11:44:00* Test Item Value Reference Range Interpretation Comments Sodium Level (test code = 2951-2) 140 136-145 [facility] CenterPotassium Tyjvp1709-74-19 11:44:00* Test Item Value Reference Range Interpretation Comments Potassium Level (test code = 2823-3) 4.3 3.5-5.1 [facility] CenterChloride Pevqt8839-28-82 11:44:00* Test Item Value Reference Range Interpretation Comments Chloride Level (test code = 2075-0) 99 98-107 [facility] CenterCarbon Dioxide Vkolz5008-23-26 11:44:00* Test Item Value Reference Range Interpretation Comments Carbon Dioxide Level (test code = 2028-9) 32 22-29 H [facility] [facility] CenterAnion [id number] 11:44:00* Test Item Value Reference Range Interpretation Comments Anion Gap (test code = 81698-7) 13.3 8-16 [facility] CenterBlood Urea [id number] 11:44:00* Test Item Value Reference Range Interpretation Comments Blood Urea Nitrogen (test code = 3094-0) 13 7-26 [facility] CenterCreatinine2018-09-11 11:44:00* Test Item Value Reference Range Interpretation Comments Creatinine (test code = 2160-0) 0.76 0.57-1.11 [facility] CenterBUN/Creatinine [id number] 11:44:00* Test Item Value Reference Range Interpretation Comments BUN/Creatinine Ratio (test code = 3097-3) 17 6-25 [facility] CenterEstimat Glomerular Filtration Rate 2017-12-12 11:44:00* Test Item Value Reference Range Interpretation Comments Estimat Glomerular Filtration Rate (test code = 51367-8) 60- >60 Ranges were taken from the National Kidney Disease Education Program and the [facility] Kidney Foundation literature.Reference ranges:60 or greater: Ovbxvf59-18 ( for 3 consecutive months): Chronic kidney disease 15 or less: Kidney failureMemorial Hermann–[facility] CenterGlucose [id number] 11:44:00* Test Item Value Reference Range Interpretation Comments Glucose Level (test code = TBA9309) 81 74-118 [facility] CenterCalcium [id number] 11:44:00* Test Item Value Reference Range Interpretation Comments Calcium Level (test code = 21525-1) 9.9 8.4-10.2 [facility]
[2019-12-30] MEDS ORDERED: HYDRALAZINE HCL 20 MG/ML VIAL IV PRN (06:15)
[2019-12-30] MEDS: SODIUM CHLORIDE 0.9% 1000ML 1,000 ML IV SCH ×2 (06:16→16:47)
[2019-12-30] MEDS ORDERED: CHLORTHALIDONE25 MG PO (06:30)
[2019-12-30] MEDS ORDERED: ZOLPIDEM TARTRAT5 MG PO (06:30)
[2019-12-30] MEDS ORDERED: LOSARTAN POTASS25 MG PO (06:30)
[2019-12-30] MEDS ORDERED: LANSOPRAZOLE30 MG PO (06:54)
[2019-12-30] MEDS ORDERED: SIMETHICONE80 MG PO (06:54)
[2019-12-30] MEDS ORDERED: ZOFRAN4 MG PO (06:54)
--- NOTE | 2019-12-30 07:00 | NUR ---
received report from off going nurse. patient in room in bed, awake and alert. reports feeling nausea and is holding emisis bag.
[2019-12-30] MEDS ORDERED: PROMETHAZINE 12.5MG/ NACL 0.9% 12.5 MG/50 ML BAG IV PRN (10:00)
[2019-12-30] MEDS ORDERED: HYDROXYZINE HCL 10 MG TAB PO PRN (10:00)
[2019-12-30] MEDS ORDERED: HYDROCODONE/APAP 5MG-325MG TAB PO PRN (10:00)
[2019-12-30] MEDS ORDERED: ACETAMINOPHEN 325 MG TAB PO PRN (10:00)
[2019-12-30] MEDS ORDERED: BENZONATATE 100 MG CAP PO PRN (10:00)
[2019-12-30] MEDS ORDERED: ALPRAZOLAM 1 MG TAB PO PRN (10:00)
[2019-12-30] MEDS: FLUOXETINE HCL 20 MG CAP PO SCH (13:42)
--- NOTE | 2019-12-30 13:42 | NUR ---
IV TO LEFT AC INFILTRATED. DC'D LEFT AC AND STARTED NEW 20G TO RIGHT AC.
[2019-12-30] MEDS: PANTOPRAZOLE 40 MG 10ML VIAL IV SCH (17:39)
[2019-12-30] MEDS: LOSARTAN POTASSIUM 25 MG TAB PO SCH (17:40)
[2019-12-30] MEDS ORDERED: MECLIZINE HCL 12.5 MG TAB PO PRN (18:15)
[2019-12-30] MEDS: ALPRAZOLAM 1 MG TAB PO SCH (19:00)
--- NOTE | 2019-12-30 20:42 | Diagnostic Imaging Report ---
CT Abdomen and Pelvis without contrast INDICATION: Vomiting, ^ABD PAIN ^20191230 ^2017 TECHNIQUE: Thin collimation axial images obtained from the diaphragm to the level of the pubic symphysis without nonionic intravenous contrast. Dose reduction techniques used: Automated exposure control, adjustment of the mAs and/or kVp according to patient size, standardized low-dose protocol, and/or iterative reconstruction technique. RADIATION DOSE: Total DLP: 322.97 mGy*cm Estimated effective dose: (DLP x 0.015 x size factor) mSv CTDIvol has been reviewed. It is below the limits set by the Radiation Protocol Committee (RPC). COMPARISON: CT abdomen/pelvis 12/25/2019. ABDOMEN FINDINGS: Lung Bases: Diffuse hyperinflation. Diffuse bronchial wall thickening and subsegmental bibasilar scarring. There are a few groundglass nodules in the lower lobes that appear new. Moderate sized hiatal hernia containing enteric contrast. The morphology is suggestive of fundoplication. Liver: Normal in attenuation without mass. Gallbladder: Absent. No ductal dilatation. Pancreas: Normal attenuation without mass. Spleen: Normal size without mass. Adrenal Glands: No evidence for mass. Kidneys: Right: Subcentimeter upper pole calculus is stable. Stable fullness of the renal pelvis. No soft tissue mass or perinephric inflammation. Left: No renal calculus. No cortical mass or hydronephrosis Lymph Nodes: No lymphadenopathy. Aorta: Normal in diameter and diffusely calcified. There are heavy calcifications throughout the visceral arteries. PELVIS FINDINGS: Bowel: Stomach: Contains a small amount of water. No focal mural thickening of the distal stomach. Small Bowel: Postoperative appearance of a proximal small bowel loop is stable. There is a small amount of contrast in the small bowel. No small bowel dilatation. Large Bowel: Scattered diverticula without associated inflammation. Moderate burden of stool throughout. No pericolonic inflammation. Appendix: Not visualized. Bladder: Normal. Ureters: No ureteral dilatation or calculus. The uterus is absent. No adnexal mass. Peritoneum/retroperitoneum: No free fluid or fluid collection. Bones: Mild to moderate degenerative changes of the spine. No focal osseous lesions. Mild degenerative changes of the hips. IMPRESSION: 1. Moderate sized hiatal hernia containing contrast. Small amount of contrast in the distal small bowel. Further evaluation of the esophagus with upper endoscopy is recommended to exclude partial obstruction. 2. Moderate colonic stool burden. Mild burden of diverticulosis coli. No evidence for bowel obstruction or inflammation. 3. Stable nonobstructing right intrarenal calculus. 4. New subcentimeter groundglass nodules in the lower lobes may be secondary to repeated bouts of aspiration. Signed by: Dr. Stefan Nina MD on 12/30/2019 8:39 PM
[2019-12-30 21:25] VITALS: BP 154/57
[2019-12-30 21:36] VITALS: BP 154/57
[2019-12-30 21:46] VITALS: BP 154/57
--- NOTE | 2019-12-30 22:10 | NUR ---
PT IS TRANSFERRED FROM ER AOX3 PT DENIES PAIN ,RESPIRATIONS ARE EVEN AND UNLABORED RT AC 2OG S/L SKIN WARM AND DRY TO TOUCH ORIENTED THE PT TO THE ENVIRONMENT PHYSICAL ASSESSMENT DONE .CALL LIGHT WITH IN REACH ,CONTINUE TO MONITOR
[2019-12-31] VITALS (9 sets, daily range): BP systolic 98–174; BP diastolic 44–70
[2019-12-31] MEDS: MAGNESIUM HYDROXIDE 30 ML UDC PO PRN ×2 (02:30→23:27)
[2019-12-31] MEDS: ONDANSETRON HCL INJ 2MG/ML 2ML 2 MG/ML VIAL IV PRN ×3 (02:30→23:26)
[2019-12-31 07:22] LABS: BASOPHILS # (AUTO) 0.1 (0.0-0.1); BASOPHILS % 0.5 % (0.0-1.0); EOSINOPHILS # (AUTO) 0.2 (0.0-0.4); EOSINOPHILS % 1.7 % (0.0-6.0); HEMATOCRIT 35.8 % (34.2-44.1); HEMOGLOBIN 11.7 g/dL (12.0-16.0); LYMPHOCYTES # (AUTO) 1.7 (1.0-3.2); LYMPHOCYTES % 14.4 % (18.0-39.1); MEAN CORPUSCULAR HEMOGLOBIN 32.1 pg (28-32); MEAN CORPUSCULAR HGB CONC 32.7 g/dL (31-35); MEAN CORPUSCULAR VOLUME 98.1 fL (81-99); MONOCYTES # (AUTO) 1.1 (0.2-0.8); MONOCYTES % 8.8 % (4.4-11.3); NEUTROPHILS # (AUTO) 8.9 (2.1-6.9); NEUTROPHILS % 74.2 % (38.7-80.0); PLATELET COUNT 227 x10e3/uL (140-360); RED BLOOD COUNT 3.65 x10e6/uL (3.6-5.1); RED CELL DISTRIBUTION WIDTH 12.1 % (11.7-14.4)
--- NOTE | 2019-12-31 07:25 | NUR ---
PATIENT C/O NAUSEA, MEDICATED ORDERED. IN BED RESTING WITH NO S/S OF DISTRESS. WILL CLOSELY MONITOR. CALL LIGHT AT REACH.
[2019-12-31] MEDS: LEVOTHYROXINE SODIUM 50 MCG TAB PO SCH (07:26)
--- NOTE | 2019-12-31 07:36 | NUR ---
BEDSIDE REPORT GIVEN TO THE ONCOMING NURSE
[2019-12-31 07:48] LABS: ALANINE AMINOTRANSFERASE 14 IU/L (0-55); ALBUMIN 4.3 g/dL (3.5-5.0); ALBUMIN/GLOBULIN RATIO 1.7 (0.8-2.0); ALKALINE PHOSPHATASE 51 IU/L (40-150); ANION GAP 14.8 mmol/L (8-16); BLOOD UREA NITROGEN 9 mg/dL (7-26); BUN/CREATININE RATIO 12 (6-25); CALCIUM 8.9 mg/dL (8.4-10.2); CARBON DIOXIDE 24 mmol/L (22-29); CHLORIDE 105 mmol/L (98-107); CREATININE, SERUM 0.74 mg/dL (0.57-1.11); EST GLOMERULAR FILTRATION RATE > 60 ML/MIN (60-); GLUCOSE 82 mg/dL (74-118); POTASSIUM 3.8 mmol/L (3.5-5.1); SODIUM 140 mmol/L (136-145)
[2019-12-31 08:26] LABS: THYROID STIMULATING HORMONE 0.627 uIU/mL (0.350-4.940)
[2019-12-31] MEDS ORDERED: PAROXETINE HCL 20 MG TAB PO SCH (09:00)
[2019-12-31] MEDS: PANTOPRAZOLE 40 MG 10ML VIAL IV SCH ×2 (09:04→17:25)
[2019-12-31] MEDS: CHLORTHALIDONE 25 MG TAB PO SCH (09:05)
[2019-12-31] MEDS: ALPRAZOLAM 1 MG TAB PO SCH ×2 (09:05→17:25)
[2019-12-31] MEDS: FLUOXETINE HCL 20 MG CAP PO SCH (09:05)
[2019-12-31] MEDS: LOSARTAN POTASSIUM 25 MG TAB PO SCH ×2 (09:05→17:00)
[2019-12-31] MEDS: SIMETHICONE 80 MG CHEW PO SCH (09:05)
[2019-12-31] MEDS: CEFTRIAXONE SOD 1 GM/NS 50 ML 50 ML IV SCH (09:23)
--- NOTE | 2019-12-31 11:18 | NUR ---
PATIENT ASSISTED TO THE RESTROOM AND BACK TO BED. CALL LIGHT AT REACH.
--- NOTE | 2019-12-31 13:21 | NUR ---
Discontinuing PT services since patient is Mod I in functional mobility. Thank you. Addendum: 12/31/19 at 1322 by Cirilo chen PT Amended: Links added.
--- NOTE | 2019-12-31 15:18 | NUR ---
PATIENT ASSISTED WITH ADLS, BED LINEN CHANGED. BACK IN BED WITH CALL LIGHT AT REACH.
--- NOTE | 2019-12-31 19:31 | NUR ---
RECEIVED PT IN BED ,DENIES PAIN .NO ACUTE DISTRESS NOTED ,CALL LIGHT IWTH IN REACH ,CONTINUE TO MONITOR
[2019-12-31] MEDS: ZOLPIDEM TARTRATE 5 MG TAB PO PRN (23:45)
[2020-01-01] VITALS (9 sets, daily range): BP systolic 94–132; BP diastolic 39–58
[2020-01-01] MEDS: ZOLPIDEM TARTRATE 5 MG TAB PO PRN (01:30)
--- NOTE | 2020-01-01 04:44 | Progress Note ---
DATE: 12/31/2019 This is a late entry. Date of service is December 31, 2019. CONSULTING PHYSICIAN: Chad Mota MD with Gastroenterology. SUBJECTIVE: The patient needs EGD per Dr. Mota; patient refused EGD on 12/29. Reports that she is able to keep her dinner down tonight. No nausea or vomiting. Mildly anxious, feeling better overall today. No chills. Mild cough. Takes Raegan and Flonase at home for allergies. Denies trouble swallowing. Last bowel movement Monday morning, which was small. She is mildly constipated. OBJECTIVE: VITAL SIGNS: Temperature 98.0, pulse 65, 98/47, subsequently 105/57, respirations 20, oxygen saturation 100%. GENERAL: Supine, in no acute distress. LUNGS: Bilateral rhonchi and wheezing. HEENT: EOMI. NECK: Supple. CARDIOVASCULAR: Regular rate and rhythm. Loud holosystolic murmur. ABDOMEN: Bowel sounds positive. Soft, nontender. EXTREMITIES: With no pitting edema. No clubbing, cyanosis, or signs of DVT. NEUROLOGICAL: GCS 15. Nonfocal. LABORATORY DATA: WBCs 12, hemoglobin 11.7, hematocrit 35.8, platelets 227. Sodium 140, potassium 3.8, chloride 105, CO2 of 24, anion gap 14.8, BUN 9, creatinine 0.74, estimated GFR greater than 60, glucose 82, hemoglobin A1c 5.4%, calcium 8.9, total bilirubin 0.7, AST 20, ALT 14, alkaline phosphatase 51, total protein 6.9, albumin 4.3, triglycerides 67, cholesterol 123, LDL 69, HDL 41, lipase 15 (34). TSH 0.627. Miller virus PCR collected 12/29 was not detected. Preliminary urine culture obtained 12/29 shows no growth. IMAGING/OTHER: CT of the brain done on 12/29 showed no acute intracranial abnormalities, particularly no hemorrhage. CT of the abdomen and pelvis showed moderate-sized hiatal hernia containing contrast, moderate colonic stool burden, stable nonobstructing right intrarenal calculus, new subcentimeter ground-glass nodules in the lower lobes may be secondary to repeated bouts of aspiration. Per documentation by Physical therapy, moderately independent in functional activity and Physical Therapy signed off. ASSESSMENT AND PLAN: 1. Hypertensive urgency. Blood pressure 216/95 on admission and today 105/57. Continue same. Monitor. 2. Anxiety/depression. Continue Xanax and Prozac. 3. Hyperlipidemia. Lipid panel within normal limits. 4. Nausea and vomiting. Gastroenterology following. Continue PPI, Zofran, Protonix. The patient may need ballooning of GE junction. 5. Insomnia. Continue Ambien p.r.n. 6. Chronic obstructive pulmonary disease without acute exacerbation. Inhaler resumed. We will add scheduled nebulizer treatments. 7. Possible aspiration. Speech Therapy consulted for bedside swallow evaluation. Per CT of the abdomen and pelvis done on 12/29, ground-glass nodules in the lower lobes, may be secondary to repeated bouts of aspiration. Consider Pulmonology consult based upon chest x-ray and swallow study results. 8. Possible urinary tract infection. Preliminary urine culture show no growth. Microbiology department holding. Continue Rocephin for now and await final urine culture sensitivity results. 9. Prophylaxis. Protonix, SCDs. Observation status, billing code [id number], time spent 35 minutes. Dictated by Maldonado Low NP Hamlet Vera MD HWP/MODL /[id number]
--- NOTE | 2020-01-01 05:36 | NUR ---
PT C/O OF INSOMINA AND GIVEN ORDERED MEDICATION ,PT RESTING ,CALL LIGT WITH IN THE [facility] ,CONTINUE TO MONITOR
[2020-01-01 06:02] LABS: BASOPHILS # (AUTO) 0.1 (0.0-0.1); BASOPHILS % 0.6 % (0.0-1.0); EOSINOPHILS # (AUTO) 0.8 (0.0-0.4); EOSINOPHILS % 7.4 % (0.0-6.0); HEMATOCRIT 34.1 % (34.2-44.1); HEMOGLOBIN 11.4 g/dL (12.0-16.0); LYMPHOCYTES # (AUTO) 1.3 (1.0-3.2); LYMPHOCYTES % 12.3 % (18.0-39.1); MEAN CORPUSCULAR HEMOGLOBIN 33.3 pg (28-32); MEAN CORPUSCULAR HGB CONC 33.4 g/dL (31-35); MEAN CORPUSCULAR VOLUME 99.7 fL (81-99); MONOCYTES # (AUTO) 1.2 (0.2-0.8); MONOCYTES % 10.6 % (4.4-11.3); NEUTROPHILS # (AUTO) 7.5 (2.1-6.9); NEUTROPHILS % 68.8 % (38.7-80.0); PLATELET COUNT 210 x10e3/uL (140-360); RED BLOOD COUNT 3.42 x10e6/uL (3.6-5.1); RED CELL DISTRIBUTION WIDTH 12.2 % (11.7-14.4)
[2020-01-01 06:26] LABS: ANION GAP 13.8 mmol/L (8-16); BLOOD UREA NITROGEN 13 mg/dL (7-26); BUN/CREATININE RATIO 16 (6-25); CALCIUM 8.6 mg/dL (8.4-10.2); CARBON DIOXIDE 28 mmol/L (22-29); CHLORIDE 101 mmol/L (98-107); EST GLOMERULAR FILTRATION RATE > 60 ML/MIN (60-); GLUCOSE 94 mg/dL (74-118); MAGNESIUM 2.6 MG/DL (1.3-2.1); PHOSPHORUS 3.9 MG/DL (2.3-4.7); POTASSIUM 3.8 mmol/L (3.5-5.1); SODIUM 139 mmol/L (136-145)
[2020-01-01] MEDS: LEVOTHYROXINE SODIUM 50 MCG TAB PO SCH (06:34)
--- NOTE | 2020-01-01 07:08 | NUR ---
BEDSIDE REPORT GIVEN TO THE ONCOMING NURSE
--- NOTE | 2020-01-01 07:30 | Diagnostic Imaging Report ---
EXAMINATION: CHEST 2 VIEWS INDICATION: Nausea, vomiting, possible aspiration COMPARISON: Abdominal CT 12/22/2019; chest x-ray 12/25/2019 FINDINGS: TUBES and LINES: None. LUNGS: Normal lung volumes. Central bronchial wall thickening. Hyperexpanded lungs. Hazy reticular opacities in the mid to lower lungs. No consolidations. PLEURA: No pleural effusion or pneumothorax. HEART AND MEDIASTINUM: The cardiomediastinal silhouette is unremarkable. Aortic calcifications. BONES AND SOFT TISSUES: No acute osseous lesion. Soft tissues are unremarkable. Degenerative changes. UPPER ABDOMEN: No free air under the diaphragm. Cholecystectomy clips in the right upper quadrant. Mild cardiomegaly. Large sliding gastric hernia. IMPRESSION: Hazy reticular opacities in the mid to lower lungs can be due to scarring/atelectasis although aspiration is possible. Findings of bronchitis. Large sliding gastric hiatal hernia. Mild cardiomegaly. Signed by: Joel Butler DO on 01/01/2020 7:27 AM
[2020-01-01] MEDS: ALBUTEROL/IPRATROPIUM 3 ML NEB NEB SCH ×5 (07:51→23:00)
[2020-01-01] MEDS: CEFTRIAXONE SOD 1 GM/NS 50 ML 50 ML IV SCH (08:17)
[2020-01-01] MEDS: ALPRAZOLAM 1 MG TAB PO SCH ×2 (08:17→17:41)
[2020-01-01] MEDS: FLUOXETINE HCL 20 MG CAP PO SCH (08:17)
[2020-01-01] MEDS: CHLORTHALIDONE 25 MG TAB PO SCH (08:17)
[2020-01-01] MEDS: SIMETHICONE 80 MG CHEW PO SCH (08:17)
[2020-01-01] MEDS: LOSARTAN POTASSIUM 25 MG TAB PO SCH ×2 (08:17→17:00)
[2020-01-01] MEDS: FLUTICASONE PROPIONATE NASAL SPRAY NS SCH ×2 (08:18→17:00)
[2020-01-01] MEDS: PANTOPRAZOLE 40 MG 10ML VIAL IV SCH ×2 (08:18→17:41)
--- NOTE | 2020-01-01 18:00 | NUR ---
patient was offered to be helped to sit up in the chair with dinner by RN, patient refused. patient was given chicken salad sandwich and mashed potatoes for dinner and ate 10% off tray
--- NOTE | 2020-01-01 20:00 | NUR ---
INITIAL ASSESSMENT COMPLETE, VS WNL, NO DISTRESS OR PAIN NOTED, CALL LIGHT IN REACH, STILL DECLINING THE EGD PER DR. HOWELL, PT NOT EATING MUCH, CONTINUES TO BE ANXIOUS ABOUT CARE, CONTINUE TO MONITOR PT.
[2020-01-02] VITALS (7 sets, daily range): BP systolic 96–165; BP diastolic 48–70
[2020-01-02] MEDS: ONDANSETRON HCL INJ 2MG/ML 2ML 2 MG/ML VIAL IV PRN (02:00)
[2020-01-02] MEDS: ALBUTEROL/IPRATROPIUM 3 ML NEB NEB SCH ×4 (03:00→14:35)
--- NOTE | 2020-01-02 05:10 | Progress Note ---
DATE: 01/01/2020 CONSULTING PHYSICIAN: Dr. Chad Mota with Gastroenterology. SUBJECTIVE: The patient is supine in bed, asleep, is arousable. Per nurse staff industrial, the patient refused EGD on 12/29, and again today, on 12/31. Denies nausea or vomiting. Mildly anxious. No chills. Mild cough. Takes Raegan and Flonase at home for allergies. Tolerating diet well. Passed her swallow evaluation today. PHYSICAL EXAMINATION: VITAL SIGNS: Temperature 98.3, pulse 62, blood pressure 123/51, respirations 20, oxygen saturation 96%. GENERAL: Supine. In no acute distress. LUNGS: More clear today. Very minimal wheezing. HEENT: EOMI. Oropharynx clear. NECK: Supple. CARDIOVASCULAR: Regular rate and rhythm. Loud holosystolic murmur. ABDOMEN: Bowel sounds positive. Soft and nontender. EXTREMITIES: No pitting edema. No clubbing, cyanosis, or signs of DVT. NEUROLOGICAL: GCS 15. Nonfocal. LABORATORY DATA: WBC 10.88, hemoglobin 11.4, hematocrit 34.1, platelets 210. Sodium 139, potassium 3.8, chloride 101, CO2 28, anion gap of 13.8, BUN 13 and creatinine 0.8, estimated GFR greater than 60, glucose 94. Hemoglobin A1c yesterday was 5.4%. Today, the calcium 8.6, phosphorus 3.9, and magnesium 2.6. IMAGING/OTHER: Chest x-ray showed hazy and reticular opacities in the [id number] lungs can be due to scarring/atelectasis, although aspiration is possible, findings of bronchitis, large sliding gastric hiatal hernia, mild cardiomegaly, bedside swallow evaluation by speech therapy was passed today. ASSESSMENT/PLAN: 1. Hypertensive urgency. Blood pressure 216/95 on admission and today, 123/51. Continue same. Monitor. 2. Anxiety/depression. Continue Xanax and Prozac. Per the nurse, the patient's special request to change Xanax and Prozac to be given at 6:00 a.m., every morning and thus, this was entered as such. 3. Hyperlipidemia. Lipid panel within normal limits. 4. Nausea and vomiting, resolved. Gastroenterology following. Continue PPI, Zofran, Protonix per Gastroenterology. The patient may need a ballooning of the GE junction. She refused EGD on two separate occasions. 5. Insomnia. Continue Ambien p.r.n. 6. Chronic obstructive pulmonary disease without acute exacerbation. Continue neb treatments. Inhaler was resumed. 7. Acute hypermagnesemia. Magnesium level of 2.6. Monitor closely. 8. Possible aspiration per speech therapy. The patient passed her bedside swallow evaluation. 9. Possible urinary tract infection. Final urine culture shows 10-50,000 CFU/mL of diphtheroid, lactobacilli, alpha Streptococcus. No further studies pending. Thus, likely contaminated. White blood cell count 10.1 (12). We will discontinue Rocephin. 10. Prophylaxis. Protonix, SCDs. Disposition: Per Gastroenterology note, the patient can discharge home from a GI standpoint and followup on an outpatient basis. The patient continues to refuse EGD. Her recurrent bouts of nausea and vomiting are better for now. We will plan on discharging home tomorrow, but will be based on physical examination and results of laboratory data. Inpatient status, billing code [id number], time spent 35 minutes. Dictated by Maldonado Low NP MD KUN Pruitt/RICHARD /[id number]
[2020-01-02] MEDS ORDERED: FLUOXETINE HCL 20 MG CAP PO SCH (06:00)
[2020-01-02] MEDS: ALPRAZOLAM 1 MG TAB PO SCH ×2 (06:00→18:16)
[2020-01-02] MEDS: LEVOTHYROXINE SODIUM 50 MCG TAB PO SCH (06:00)
[2020-01-02 06:56] LABS: BASOPHILS # (AUTO) 0.1 (0.0-0.1); BASOPHILS % 0.4 % (0.0-1.0); EOSINOPHILS # (AUTO) 0.1 (0.0-0.4); EOSINOPHILS % 0.4 % (0.0-6.0); HEMATOCRIT 34.5 % (34.2-44.1); HEMOGLOBIN 11.8 g/dL (12.0-16.0); LYMPHOCYTES # (AUTO) 0.7 (1.0-3.2); LYMPHOCYTES % 5.4 % (18.0-39.1); MEAN CORPUSCULAR HEMOGLOBIN 34.6 pg (28-32); MEAN CORPUSCULAR HGB CONC 34.2 g/dL (31-35); MEAN CORPUSCULAR VOLUME 101.2 fL (81-99); MONOCYTES # (AUTO) 0.9 (0.2-0.8); MONOCYTES % 6.8 % (4.4-11.3); NEUTROPHILS # (AUTO) 11.1 (2.1-6.9); NEUTROPHILS % 86.5 % (38.7-80.0); PLATELET COUNT 219 x10e3/uL (140-360); RED BLOOD COUNT 3.41 x10e6/uL (3.6-5.1); RED CELL DISTRIBUTION WIDTH 12.3 % (11.7-14.4)
[2020-01-02] MEDS: LOSARTAN POTASSIUM 25 MG TAB PO SCH (09:00)
[2020-01-02] MEDS: SIMETHICONE 80 MG CHEW PO SCH (09:00)
[2020-01-02] MEDS: FLUTICASONE PROPIONATE NASAL SPRAY NS SCH (09:00)
[2020-01-02] MEDS: CHLORTHALIDONE 25 MG TAB PO SCH (09:00)
[2020-01-02] MEDS: PANTOPRAZOLE 40 MG 10ML VIAL IV SCH (10:39)
--- NOTE | 2020-01-02 15:00 | NUR ---
spoke with Dr. Jailene Mota via telephone, EGD can not be done today and he is unsure if EGD will be able to be fit in on tomorrows schedule also. informed Maldonado Low NP
[2020-01-02] MEDS ORDERED: Meclizine Hcl PO (15:14)
--- NOTE | 2020-01-02 16:00 | NUR ---
patient is refusing to leave, she states that she can not go home "like this". claims that she has not been walking and can not walk to the bathroom. pt has been refusing to get up out of the bed with RN since 01/01/2020 0700 and requested the tech to put a diaper on her. pt has had no n/v during day shift 01/02/20. 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
--- NOTE | 2020-01-02 18:01 | NUR ---
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 Mota said to provide her a tray for dinner and to discharge her home and to make an appointment for EGD as an outpatient.
--- NOTE | 2020-01-09 11:17 | NUR ---
Discharge Summary dictated,
--- NOTE | 2020-01-09 20:49 | Discharge Summary ---
CONSULTING PHYSICIAN: Dr. Chad Mota with Gastroenterology. CHIEF COMPLAINT: Elevated blood pressure and nausea. HISTORY: The patient is 79-year-old female, who was admitted with complaints of elevated blood pressure and nausea. Systolic blood pressure at home was around 220. She took all of her blood pressure medications. She also admitted to intermittent nausea for the past few months prior to admission. PAST MEDICAL HISTORY: Anxiety/depression, hypothyroidism, hypertension, GERD, insomnia. PAST SURGICAL HISTORY: Cholecystectomy, hysterectomy, bilateral cataract surgery, hiatal hernia repair, perforated bowel repair. FAMILY HISTORY: Brother had cancer and mother had WI. SOCIAL HISTORY: Quit smoking in the 70s. ALLERGIES: PROMETHAZINE, CIMETIDINE, NAPROXEN, PENTAZOCINE, CODEINE, CAFFEINE, IODINATED CONTRAST MEDIA. ADMITTING DIAGNOSES: 1. Hypertensive urgency. 2. Anxiety/depression. 3. Hyperlipidemia. 4. Urinary tract infection, present on admission. 5. Emphysema. 6. Insomnia. 7. Nausea/vomiting. DISCHARGE DIAGNOSES: 1. Hypertensive urgency. 2. Anxiety/depression. 3. Hyperlipidemia. 4. Nausea and vomiting, resolved. 5. Insomnia. 6. Chronic obstructive pulmonary disease without acute exacerbation. 7. Acute hypomagnesemia, improving. 8. Possible aspiration. 9. Possible urinary tract infection. HOSPITAL COURSE: Admitting laboratory data; WBCs 11.6, hemoglobin 12.2, hematocrit 36.6, platelets 233, neutrophils 76%. Sodium 136, potassium 3.6, chloride 96, CO2 of 27, anion gap 16.6, BUN 12, creatinine 0.75, estimated GFR greater than 60, glucose 117, calcium 9.2, total bilirubin 0.5, AST 22, ALT 16, alkaline phosphatase 65. Creatine kinase 67, CK-MB 1.1, troponin I 0.009, total protein 7.3, albumin 4.6. Urinalysis; cloudy, pH 8.5, specific gravity 1.02, 2+ protein, negative glucose, 1+ ketones, trace amount of blood, trace amount of nitrites, negative bilirubin, small amount of leukocyte esterase, rbc 6-10, wbc 21-50, few epithelial cells, few transitional epithelial cells, few renal epithelial cells, many urine bacteria. Coronavirus PCR was negative on 12/29. Final urine culture on 12/29 showed 10,000 to 50,000 CFU per mL diphtheroid lactobacilli, alpha Streptococcus, likely contaminated. CT of the brain on 12/29, showed no acute intracranial abnormalities, particularly no hemorrhage. CT of the abdomen and pelvis on 12/29, showed moderate-sized hiatal hernia containing contrast. Small amount of contrast in the distal small bowel. Moderate colonic stool burden. No evidence for bowel obstruction or inflammation. Stable nonobstructing right intrarenal calculus, new subcentimeter ground-glass nodules in the lower lobes may be secondary to repeated bouts of aspiration. On 12/31, chest x-ray showed hazy reticular opacities in the mid to lower lungs, can be due to scarring/atelectasis, although aspiration is possible, findings of bronchitis, large sliding gastric hiatal hernia, mild cardiomegaly. On 12/30, the patient reported that she was able to keep her dinner down at night. No nausea or vomiting. She had refused her EGD on 12/29, although it was encouraged by Dr. Mota. Mildly anxious. Feeling better overall. No chills. Mild cough. The patient remarked that she was mildly constipated, last bowel movement was Monday morning. Blood pressure had been 216/95 on admission and on 12/30 was 105/57. She was on Xanax and Prozac for anxiety/depression. Per Gastroenterology notes, the patient may be in need of ballooning at the GE junction. Speech Therapy was consulted for bedside swallow evaluation. Rocephin was used prophylactically before the final urine culture results came in. On 12/31, the patient refused EGD again. She denied any nausea or vomiting, was mildly anxious. No chills. Mild cough. She passed her bedside swallow evaluation on 12/31. As she had refused her EGD on 2 separate occasions, there was an attempt made to get the patient in for EGD when she recanted and stated that she would perhaps be willing to do EGD. However, on 01/01, Dr. Mota stated that he would be able to get her in there and he was not sure about getting her in for EGD on 01/02. Per Gastroenterology note, the patient can be discharged home from a GI standpoint and follow up on an outpatient basis. Her recurrent bouts of nausea and vomiting were better at that time. The patient to follow up with Dr. Mota for EGD on an outpatient basis as long she consents. The patient was discharged on 01/01 on a cardiac diet. Activity level as tolerated. Follow up with her PCP, Dr. Soni Lino in 1 to 2 weeks. Follow up with Dr. Mota; call his office to make an appointment. Vital signs on day of discharge; temperature 98.1, she has been afebrile, pulse 93, blood pressure 165/70 and subsequently 114/50, respirations 16, oxygen saturation 98%. No change in physical exam. On 01/01, WBCs 12.85, hemoglobin 11.8, hematocrit 34.5, and platelets 219. Her amylase and lipase were 44 and 34 on 12/29. On 12/30, hemoglobin A1c 5.4%. Lipase 15, TSH 0.627. Lipid panel within normal limits. On 12/31, sodium 139, potassium 3.8, chloride 101, CO2 of 28, BUN 13, creatinine 0.8, estimated GFR greater than 60, glucose 94, calcium 8.6, phosphorus 3.9, magnesium 2.6 and then on 01/01, magnesium level 2.3. Dictated by Maldonado Low NP MD MAXINE PruittP/RICHARD /[id number]
== END 2020-01-02 19:27 | disposition home or self-care (01) | DRG 305 ==
LOC: ER 02:57 → ERHOLD 06:02 → MED/SURG3 21:06 → OBSVTOIN 01-01 10:21
PROVIDERS: ADMIT Internal Medicine; ATTEND Internal Medicine
DX: I16.0 Hypertensive urgency (principal); I10 Essential (primary) hypertension; J44.9 Chronic obstructive pulmonary disease, unspecified; F41.9 Anxiety disorder, unspecified; E78.5 Hyperlipidemia, unspecified; H81.09 Meniere's disease, unspecified ear; K44.9 Diaphragmatic hernia without obstruction or gangrene; E03.9 Hypothyroidism, unspecified; K21.9 Gastro-esophageal reflux disease without esophagitis; G47.00 Insomnia, unspecified; F32.9 Major depressive disorder, single episode, unspecified; K59.00 Constipation, unspecified; Z87.891 Personal history of nicotine dependence; Z88.5 Allergy status to narcotic agent; Z88.0 Allergy status to penicillin; Z88.8 Allergy status to other drugs, medicaments and biological substances; Z91.041 Radiographic dye allergy status; E83.41 Hypermagnesemia; Z11.59 Encounter for screening for other viral diseases; E83.42 Hypomagnesemia
CPT/HCPCS: 36415; 70450; 71046; 74176; 80048; 80053; 80061; 81001; 82150; 82550; 82553; 83036; 83690; 83735; 84100; 84443; 84484; 85025; 87086; 93005; 94640; 97139; 99284; G0378; J0360; J0696; J1956; J2060; J2405; J7030

== ENCOUNTER 2020-02-28 00:48 | Observation (INO) | payer OTHER ==
[~2020-02-28] VITALS: Ht 167.6 cm; Wt 66.4 kg
[2020-02-28] VITALS (7 sets, daily range): BP systolic 99–146; BP diastolic 38–68
[~2020-02-28 00:48] MED LIST changes: +CHLORTHALIDONE25 MG PO; +LOSARTAN POTASS25 MG PO; +Meclizine Hcl PO; +SIMETHICONE80 MG PO; +ZOFRAN4 MG PO; +ZOLPIDEM TARTRAT5 MG PO
[2020-02-28 01:13] LABS: BASOPHILS # (AUTO) 0.1 (0.0-0.1); BASOPHILS % 0.5 % (0.0-1.0); EOSINOPHILS # (AUTO) 0.1 (0.0-0.4); EOSINOPHILS % 0.5 % (0.0-6.0); HEMATOCRIT 35.6 % (34.2-44.1); HEMOGLOBIN 11.6 g/dL (12.0-16.0); LYMPHOCYTES # (AUTO) 0.7 (1.0-3.2); LYMPHOCYTES % 6.2 % (18.0-39.1); MEAN CORPUSCULAR HEMOGLOBIN 32.6 pg (28-32); MEAN CORPUSCULAR HGB CONC 32.6 g/dL (31-35); MONOCYTES # (AUTO) 0.5 (0.2-0.8); MONOCYTES % 4.5 % (4.4-11.3); NEUTROPHILS # (AUTO) 9.8 (2.1-6.9); NEUTROPHILS % 87.9 % (38.7-80.0); PLATELET COUNT 238 x10e3/uL (140-360); RED BLOOD COUNT 3.56 x10e6/uL (3.6-5.1); RED CELL DISTRIBUTION WIDTH 12.2 % (11.7-14.4)
[2020-02-28 01:33] LABS: ALANINE AMINOTRANSFERASE 16 IU/L (0-55); ALBUMIN 4.3 g/dL (3.5-5.0); ALBUMIN/GLOBULIN RATIO 1.5 (0.8-2.0); ALKALINE PHOSPHATASE 65 IU/L (40-150); ANION GAP 14.1 mmol/L (8-16); BLOOD UREA NITROGEN 15 mg/dL (7-26); BUN/CREATININE RATIO 20 (6-25); CALCIUM 8.7 mg/dL (8.4-10.2); CARBON DIOXIDE 28 mmol/L (22-29); CHLORIDE 95 mmol/L (98-107); CREATINE KINASE 65 IU/L (29-168); CREATININE, SERUM 0.75 mg/dL (0.57-1.11); EST GLOMERULAR FILTRATION RATE > 60 ML/MIN (60-); GLUCOSE 161 mg/dL (74-118); POTASSIUM 4.1 mmol/L (3.5-5.1); SODIUM 133 mmol/L (136-145)
[2020-02-28] MEDS ORDERED: ONDANSETRON HCL INJ 2MG/ML 2ML 2 MG/ML VIAL IV STA (01:40)
[2020-02-28 03:27] LABS: CREATINE KINASE MB 2.1 ng/mL (0-5.0)
[2020-02-28] MEDS ORDERED: SODIUM CHLORIDE FLUSH 10 ML SYR INJ PRN (04:15)
[2020-02-28] MEDS ORDERED: ONDANSETRON HCL INJ 2MG/ML 2ML 2 MG/ML VIAL IV PRN ×2 (04:15→08:00)
[2020-02-28] MEDS ORDERED: TYLENOL EXTRA500 MG PO (05:44)
[2020-02-28] MEDS ORDERED: CLONIDINE HCL0.1 MG PO (05:44)
[2020-02-28] MEDS ORDERED: FLUOXETINE HCL20 MG PO (05:44)
[2020-02-28] MEDS ORDERED: LANSOPRAZOLE30 MG PO (05:44)
[2020-02-28] MEDS ORDERED: DOCUSATE SODIUM 100 MG CAP PO PRN (08:00)
[2020-02-28] MEDS ORDERED: MELATONIN 5 MG TABLET PO PRN (08:00)
[2020-02-28] MEDS ORDERED: HYDRALAZINE HCL 20 MG/ML VIAL IV PRN (08:00)
[2020-02-28] MEDS ORDERED: ALBUTEROL/IPRATROPIUM 3 ML NEB NEB PRN (08:00)
[2020-02-28] MEDS ORDERED: POLYETHYLENE GLYCOL 3350 17 GM PACK PO PRN (08:00)
[2020-02-28] MEDS ORDERED: DIPHENHYDRAMINE HCL 25 MG CAP PO PRN (08:00)
[2020-02-28] MEDS ORDERED: BENZONATATE 100 MG CAP PO PRN (08:00)
[2020-02-28] MEDS ORDERED: CHLORASEPTIC SPRAY 177 ML BTL MM PRN (08:00)
[2020-02-28] MEDS ORDERED: POTASSIUM CHLORIDE 20 MEQ TAB CR PO PRN (08:00)
[2020-02-28] MEDS ORDERED: DEXTROSE 50% SYRINGE 50 ML IV PRN (08:00)
[2020-02-28] MEDS: ASPIRIN 81 MG ENTERIC COATED PO SCH (09:00)
[2020-02-28] MEDS: LEVOTHYROXINE SODIUM 50 MCG TAB PO SCH (09:00)
[2020-02-28] MEDS: FLUOXETINE HCL 20 MG CAP PO SCH (09:00)
[2020-02-28] MEDS: LOSARTAN POTASSIUM 25 MG TAB PO SCH ×2 (09:00→17:35)
[2020-02-28 11:47] LABS: CREATINE KINASE MB 2.5 ng/mL (0-5.0)
[2020-02-28] MEDS: ACETAMINOPHEN 325 MG TAB PO PRN ×2 (14:00→20:31)
[2020-02-28] MEDS ORDERED: ENOXAPARIN SOD INJ 40 MG/0.4 ML SYR SC SCH (17:00)
[2020-02-28] MEDS: ALPRAZOLAM 1 MG TAB PO PRN (19:02)
[2020-02-28 20:13] LABS: CREATINE KINASE MB 2.3 ng/mL (0-5.0)
[2020-02-29] MEDS: ACETAMINOPHEN 325 MG TAB PO PRN ×2 (03:55→11:32)
[2020-02-29 04:55] VITALS: BP 100/48
[2020-02-29] MEDS: LEVOTHYROXINE SODIUM 50 MCG TAB PO SCH (05:55)
[2020-02-29 06:07] LABS: BASOPHILS % 0.7 % (0.0-1.0); EOSINOPHILS # (AUTO) 0.2 (0.0-0.4); EOSINOPHILS % 3.1 % (0.0-6.0); HEMATOCRIT 31.9 % (34.2-44.1); HEMOGLOBIN 10.5 g/dL (12.0-16.0); LYMPHOCYTES # (AUTO) 1.7 (1.0-3.2); MEAN CORPUSCULAR HEMOGLOBIN 33.3 pg (28-32); MEAN CORPUSCULAR HGB CONC 32.9 g/dL (31-35); MEAN CORPUSCULAR VOLUME 101.3 fL (81-99); MONOCYTES # (AUTO) 0.7 (0.2-0.8); MONOCYTES % 10.7 % (4.4-11.3); NEUTROPHILS # (AUTO) 3.6 (2.1-6.9); NEUTROPHILS % 58.3 % (38.7-80.0); PLATELET COUNT 228 x10e3/uL (140-360); RED BLOOD COUNT 3.15 x10e6/uL (3.6-5.1); RED CELL DISTRIBUTION WIDTH 12.6 % (11.7-14.4)
[2020-02-29 06:34] LABS: ALANINE AMINOTRANSFERASE 12 IU/L (0-55); ALBUMIN 3.6 g/dL (3.5-5.0); ALBUMIN/GLOBULIN RATIO 1.4 (0.8-2.0); ALKALINE PHOSPHATASE 50 IU/L (40-150); ANION GAP 9.3 mmol/L (8-16); BLOOD UREA NITROGEN 9 mg/dL (7-26); BUN/CREATININE RATIO 12 (6-25); CALCIUM 8.3 mg/dL (8.4-10.2); CARBON DIOXIDE 28 mmol/L (22-29); CHLORIDE 101 mmol/L (98-107); CREATININE, SERUM 0.78 mg/dL (0.57-1.11); EST GLOMERULAR FILTRATION RATE > 60 ML/MIN (60-); GLUCOSE 130 mg/dL (74-118); POTASSIUM 4.3 mmol/L (3.5-5.1); SODIUM 134 mmol/L (136-145)
[2020-02-29 06:45] LABS: THYROID STIMULATING HORMONE 0.712 uIU/mL (0.350-4.940)
[2020-02-29] MEDS: ALPRAZOLAM 1 MG TAB PO PRN (06:46)
[2020-02-29 06:49] LABS: CHOL/HDL RATIO 3.8 (3.0-3.6)
[2020-02-29] MEDS ORDERED: PANTOPRAZOLE SOD 40 MG TABEC PO SCH (07:30)
[2020-02-29 07:46] VITALS: BP 131/70
[2020-02-29] MEDS: ASPIRIN 81 MG ENTERIC COATED PO SCH (08:45)
[2020-02-29] MEDS: FLUOXETINE HCL 20 MG CAP PO SCH (08:45)
[2020-02-29] MEDS: LOSARTAN POTASSIUM 25 MG TAB PO SCH (08:45)
[2020-02-29 09:00] VITALS: BP 131/70
[2020-02-29 11:15] VITALS: BP 142/56
== END 2020-02-29 15:15 | disposition home or self-care (01) ==
LOC: ER 00:57 → ERHOLD 04:18 → MED/SURG2 07:21
PROVIDERS: ADMIT Internal Medicine; ATTEND Internal Medicine
DX: I16.0 Hypertensive urgency (principal); R94.31 Abnormal electrocardiogram [ECG] [EKG]; E03.9 Hypothyroidism, unspecified; R91.8 Other nonspecific abnormal finding of lung field; F41.9 Anxiety disorder, unspecified; Z88.5 Allergy status to narcotic agent; Z88.0 Allergy status to penicillin; Z88.8 Allergy status to other drugs, medicaments and biological substances; Z91.041 Radiographic dye allergy status; Z83.3 Family history of diabetes mellitus; Z82.49 Family history of ischemic heart disease and other diseases of the circulatory system; Z20.828 Contact with and (suspected) exposure to other viral communicable diseases
CPT/HCPCS: 36415; 71045; 71250; 76770; 80053; 80061; 82550; 82553; 83036; 83880; 84443; 84484; 85025; 93005; 93306; 93976; 99284; G0378; J1650; J2405; U0002